=== PATIENT | male | born 1960 | race Caucasian/White ===

== ENCOUNTER 2024-09-14 07:15 | Emergency (ER) | payer MEDICARE, SELFPAY ==
[2024-09-14] VITALS (12 sets, daily range): BP systolic 120–184; BP diastolic 67–111; PULSE 79–87; RESP 15–28; TEMP 36.6–37.1; O2SAT 90–95
--- NOTE | 2024-09-14 07:30 | DI.RAD_ITS ---
Exam(s) XR CHEST 2V PA LATERAL EXAM: XR CHEST 2V PA LATERAL CLINICAL HISTORY: cough TECHNIQUE: 2D digital imaging was performed of the chest. Three images were obtained. AP and later al views were obtained. COMPARISON: No exams were available for comparison FINDINGS: MEDIASTINUM: Normal. HEART: Normal. PULMONARY VASCULATURE: Normal. LUNGS: There are bilateral pulmonary infiltrates present. Peribronchial thickening is seen bilateral ly. PLEURAL SPACE: No pleural effusion or pneumothorax. BONE:Within normal limits for the patient's age. OTHER FINDINGS:Normal. IMPRESSION: Multifocal pneumonia. DATA REPOSITORY: RADIATION DOSE DELIVERED:
--- NOTE | 2024-09-14 07:43 | ED.GENADUL_ITS ---
Discharge Plan Disposition Patient Disposition: Home Condition: Stable Discharge Details Clinical Impression: Community acquired pneumonia ED Provider: Shai Groves Home Meds and New Rx's Prescriptions: New levofloxacin 750 mg tablet 750 mg PO DAILY Qty: 6 0RF Continued hydrochlorothiazide 25 mg tablet 25 mg PO DAILY candesartan 32 mg tablet 32 mg PO DAILY Discharge Instructions Additional Instructions: Your x-ray showed you have a pneumonia. Take the antibiotic as prescribed. If you are not improving within a week follow-up with your primary care provider. If you feel significantly more ill or have severe shortness of breath return to the emergency department for reevaluation HPI General Date/Time Provider Initiated Documentation: 09/14/24 07:16 . Limitations to Documentation: no limitations . Information obtained by: patient . History of Present Illness 64 year old M presents to the emergency department with the chief complaint of cough, described as moderate, Patient started experiencing this day(s) (3) and it has been intermittent. No relieving factors improve symptom(s), No exacerbating factors reported . Patient notes shortness of breath; denies chest pain. Patient did receive the following treatments prior to arrival, none Related Data Home Medications ?Medication ?Instructions ?Recorded ?Confirmed candesartan 32 mg tablet 32 mg PO DAILY 09/14/24 09/14/24 hydrochlorothiazide 25 mg tablet 25 mg PO DAILY 09/14/24 09/14/24 levofloxacin 750 mg tablet 750 mg PO DAILY #6 tabs 09/14/24 Previous Rx's ?Medication ?Instructions ?Recorded levofloxacin 750 mg tablet 750 mg PO DAILY #6 tabs 09/14/24 Allergies Allergy/AdvReac Type Severity Reaction Status Date / Time acetaminophen (From Percocet) Allergy Severe Itching Verified 09/14/24 07:26 oxycodone (From Percocet) Allergy Severe Itching Verified 09/14/24 07:26 General Stated Complaint: GenMedical CHARLES: 3 Review of Systems All systems reviewed & are unremarkable except as noted in HPI and below Constitutional Constitutional: Reports chills, Denies fever(s) and Denies weakness Cardiovascular Cardiovascular: Denies chest pain and Reports dyspnea Respiratory Respiratory: Reports cough and Reports dyspnea Gastrointestinal Gastrointestinal: Denies abdominal pain, Denies nausea and Denies vomiting Integumentary/Breasts Skin/Breast: Denies rash Neurologic Neurologic: Denies weakness Exam Const General: no acute distress Orientation: alert HENMT Head: normal to inspection Ears: external ears normal General nose exam: external nose normal Mouth: moist mucous membranes Eyes General: appearance normal, both eyes and all related structures Neck Neck: normal visual inspection Resp Effort & Inspection: normal respiratory effort and able to speak in complete sentences Auscultation: rhonchi Cardio Jugular venous pressure: no JVD Rate: regular rate Heart Sounds: no murmurs GI Palpation: soft and nontender Skin General skin exam: no rashes or lesions noted Neuro General: patient alert and patient oriented x3 Extrem General: normal to inspection Psych Mental Status: mental status grossly normal Course Vital Signs Vital signs: Vital Signs Temperature 36.6 C 09/14/24 07:23 Pulse 87 09/14/24 07:23 Respiratory Rate 20 09/14/24 07:23 Blood Pressure 184/111 H 09/14/24 07:23 Pulse Oximetry 91 L 09/14/24 07:23 Temperature 36.6 C 09/14/24 07:26 Temperature Source Oral 09/14/24 07:26 Pulse 87 09/14/24 07:26 Respiratory Rate 20 09/14/24 07:26 Blood Pressure 184/111 H 09/14/24 07:26 Blood Pressure Position Sitting 09/14/24 07:26 Pulse Oximetry 91 L 09/14/24 07:26 Oxygen Delivery Method Room Air 09/14/24 07:26 Oxygen Flow Rate 0 09/14/24 07:26 Medical Decision Making 64-year-old male who states he has a history of high blood pressure and smokes pot daily comes in with several days of productive cough and chills. Denies any high fevers, chest pressure, diaphoresis. He is stable on arrival though his O2 sat on room air is noted to be 92% on my exam. He has no signs of respiratory distress. He has no JVD or leg swelling or calf tenderness. Soft nontender abdomen. He has apical wheezing bilaterally and also rhonchi at the bases bilaterally with intermittent cough during exam. I suspect respiratory infection, will check a CBC, CMP and procalcitonin and also chest x-ray along with a Fluvid. Will treat his symptoms with DuoNeb and Solu-Medrol and reassess. Labs show mild leukocytosis send x-ray shows multifocal pneumonia. Patient is stable and feels well. Discussed results with him and given reassuring workup I feel he is appropriate for outpatient management. Will start him on levofloxacin. He will follow-up with his PCP if improving and return precautions given Differential Diagnosis Differential Diagnosis: covid, flu, pneumonia Lab Data Lab results reviewed: Yes I reviewed the patient's lab results. Quality:SDOH Health Related Social Needs: No Data to Display PFSH All Active Problems (Updated 09/14/24 @ 09:48 by Shai Groves MD) Community acquired pneumonia (Acute) Social History Smoking risk assessment performed?: No
[2024-09-14 08:27] LABS: COVID-19 PCR Negative (Negative); Influenza A PCR Negative (Negative); Influenza B PCR Negative (Negative); RSV PCR Negative (Negative)
[2024-09-14 08:29] LABS: Source Nasopharynx
[2024-09-14 09:06] LABS: Abs Immature Grans 0.09 10^3/uL (0.0-0.06); Absolute Basophil Count 0.07 10^3/uL (0.0-0.2); Absolute Eosinophil Count 0.22 10^3/uL (0.0-0.7); Absolute Lymphocyte Count 1.42 10^3/uL (1.2-3.4); Absolute Monocyte Count 0.61 10^3/uL (0.1-0.8); Absolute Neutrophil Count 9.54 10^3/uL (1.2-6.7); BE (Venous) 3 mmol/L (-2-3); Basophils % 0.6 %; Eosinophils % 1.8 %; HCO3 (Venous) 26 mmol/L (23-28); HCT 41.5 % (40.0-50.0); HGB 13.5 g/dL (13.5-17.5); Immature Grans % 0.8 %; Lymphocytes % 11.9 %; MCH 26.6 pg (27.0-33.0); MCHC 32.5 % (32.0-36.0); MCV 82 fL (80-95); MPV 8.9 fL (8.0-11.0); Monocytes % 5.1 %; Neutrophils % 79.8 %; O2 Sat (Venous) 83 %; Platelet Count 416 10^3/uL (130-400); RBC 5.08 10^6/uL (4.36-5.78); RDW 14.8 % (11.8-14.1); RDW-SD 44.7 fL; TCO2 (Venous) 23 mmol/L (24-29); WBC 11.95 10^3/uL (4.4-10.8); pCO2 (Venous) 36 mmHg (41-51); pH (Venous) 7.47 (7.31-7.41); pO2 (Venous) 45 mmHg
[2024-09-14 09:33] LABS: ALT 16 U/L (16-63); AST 12 U/L (15-37); Albumin 2.6 g/dL (3.4-5.0); Alkaline Phosphatase 117 U/L (46-116); Anion Gap 9.9 mmol/L (3-11); BUN 15 mg/dL (7-18); Bilirubin, Total 0.4 mg/dL (0.2-1.0); CO2 27.1 mmol/L (21.0-32.0); CREATININE 1.1 mg/dL (0.70-1.30); Calcium 9.2 mg/dL (8.5-10.1); Chloride 98 mmol/L (98-107); Glucose 217 mg/dL (74-106); Magnesium 1.9 mg/dL; Potassium 3.7 mmol/L (3.5-5.1); Sodium 135 mmol/L (136-145); TSH (W/Ref FT4) 1.65 uIU/mL (0.36-3.74); Total Protein 9.2 g/dL (6.4-8.2)
[2024-09-14 09:35] LABS: Procalcitonin < 0.10 ng/mL
[2024-09-14] MEDS: Albuterol/Ipratropium 3 ML UPD VIAL UPD (10:05)
[2024-09-14] MEDS: levoFLOXacin 500 MG, levoFLOXacin 250 MG 750 MG PO (10:06)
[2024-09-14] MEDS: methylPREDNISolone SUCC 125 MG VIAL IVP (10:08)
== END 2024-09-14 10:20 | disposition home or self-care (01) ==
LOC: ER 11:10
PROVIDERS: Emergency Provider Emergency Medicine
DX: J18.9 Pneumonia, unspecified organism (principal)
CPT/HCPCS: 36415; 80053; 82805; 82962; 84145; 87637; 94640; 96374; 99284; 99285; 71046; 83735; 84443; 85025; J2919; J7620

== ENCOUNTER 2024-09-16 11:07 | Outpatient (CLI) | payer MEDICARE, SELFPAY ==
--- NOTE | 2024-09-16 09:45 | DI.RAD_ITS ---
Exam(s) XR CHEST 2V PA LATERAL EXAM: XR CHEST 2V PA LATERAL CLINICAL HISTORY: monitor pneumonia, ? worsening, increased SOB TECHNIQUE: 2D digital imaging was performed of the chest. Two images were obtained. PA and lateral views were obtained. COMPARISON: CR XR CHEST 2V PA LATERAL from 09/14/2024 FINDINGS: MEDIASTINUM: Normal. HEART: Normal. PULMONARY VASCULATURE: Normal. LUNGS: There are stable bilateral pulmonary infiltrates. No new infiltrates are seen. PLEURAL SPACE: No pleural effusion or pneumothorax. BONE:Within normal limits for the patient's age. OTHER FINDINGS:Normal. IMPRESSION: Stable bilateral pulmonary infiltrates. DATA REPOSITORY: RADIATION DOSE DELIVERED:
== END 2024-09-16 11:27 ==
LOC: DI 11:08
PROVIDERS: Visit Provider Physician Assistant
DX: J18.9 Pneumonia, unspecified organism (principal)
CPT/HCPCS: 71046

== ENCOUNTER 2024-09-25 22:19 | Inpatient (IN) | payer MEDICARE, SELFPAY ==
[2024-09-25] VITALS (23 sets, daily range): BP systolic 124–181; BP diastolic 56–106; PULSE 62–180; RESP 16–41; TEMP 38.7; O2SAT 91–95
--- NOTE | 2024-09-25 22:15 | RT.EKG_ITS ---
APPROVED REPORT Exam: Resting ECG Reason for Exam: SOB Patient Location: E HR:166 bpm ECG Measurements Heart Rate 166 AXIS CA 85 P 0 QRSd 99 QRS 68 QT 298 T -51 QTc 494 Conclusion Supraventricular tachycardia...V-rate>(220-age), QRSd<120 Repolarization abnormality, prob rate related...ST dep, T neg, tachycardia narrow complex tachycardia rate 160's
[2024-09-25 22:42] LABS: Absolute Basophil Count 0.07 10^3/uL (0.0-0.2); Absolute Eosinophil Count 0.07 10^3/uL (0.0-0.7); Absolute Monocyte Count 0.89 10^3/uL (0.1-0.8); Basophils % 0.3 %; Eosinophils % 0.3 %; HCT 44.6 % (40.0-50.0); HGB 14.4 g/dL (13.5-17.5); Immature Grans % 0.9 %; Lymphocytes % 5.5 %; MCH 26.3 pg (27.0-33.0); MCHC 32.3 % (32.0-36.0); MCV 81 fL (80-95); MPV 8.8 fL (8.0-11.0); Platelet Count 317 10^3/uL (130-400); RBC 5.48 10^6/uL (4.36-5.78); RDW 15.5 % (11.8-14.1); RDW-SD 46.1 fL; WBC 22.37 10^3/uL (4.4-10.8)
[2024-09-25] MEDS: Adenosine 6 MG/2 ML VIAL IVP (22:42)
[2024-09-25 22:43] LABS: Absolute Lymphocyte Count 1.23 10^3/uL (1.2-3.4); Absolute Neutrophil Count 19.91 10^3/uL (1.2-6.7); Lactate 2.4 mmol/L (<or=2.0)
[2024-09-25] MEDS: Adenosine 6 MG/2 ML VIAL 12 MG IVP ×2 (22:44→23:15)
--- NOTE | 2024-09-25 22:45 | RT.EKG_ITS ---
APPROVED REPORT Exam: Resting ECG Reason for Exam: tachy Patient Location: E HR:137 bpm ECG Measurements Heart Rate 137 AXIS WA [id number] P [id number] QRSd 99 QRS 67 QT 302 T -69 QTc 457 Conclusion Atrial fibrillation...V-rate 106-169, irreg A-activity Nonspecific repol abnormality, diffuse leads...ST dep, T flat/neg, ant/lat/inf afib with RVR rate 130's no ST segment or T wave abnormalitites to suggest occlusive ID
[2024-09-25] MEDS: dilTIAZem 125 MG in Normal Saline 100 ML 10 MG IV (22:56)
[2024-09-25] MEDS: dilTIAZem 25 MG/5 ML VIAL 10 MG IVP (23:00)
--- NOTE | 2024-09-25 23:02 | ED.GENADUL_ITS ---
Discharge Plan Disposition Patient Disposition: Admit to [facility] Condition: Critical Discharge Details Chief Complaint: SOB/SuddenOnset Clinical Impression: Atrial fibrillation with rapid ventricular response, Sepsis, Respiratory failure, Hallucination Admit Date/Time: 09/26/24 01:35 Admit Provider: Yakov De La Fuente Attending Provider: Yakov De La Fuente Primary Care Provider: Unknown,Unknown ED Provider: Rosa Montoya Home Meds and New Rx's Prescriptions: No Action albuterol sulfate 90 mcg/actuation HFA aerosol inhaler 2 puff inhalation Q6H PRN (Reason: shortness of breath or wheezing) Qty: 8.5 0RF hydrochlorothiazide 25 mg tablet 25 mg PO DAILY candesartan 32 mg tablet 32 mg PO DAILY HPI General Mode of arrival: ambulatory . Date/Time Provider Initiated Documentation: 09/25/24 22:20 . Limitations to Documentation: no limitations . Information obtained by: patient . HPI Narrative: 64yo M with hx of HTN, recent pneumonia, presenting for shortness of breath and palpitations, started at 1300 today while cleaning toilet with bleach. Constant since then. No chest pain. Diagnoses with pneumonia about a week and a half ago, has been on antibiotics and steroids since then. Unsure if he has had fevers at home. No LE edema. No orthopnea. No fevers or neck pain. reports he has been seeing his brothers ([facility] note from about a week ago, after starting prednisone, also mentions hallucinations); no prior history of this. Otherwise in his usual state of health. Related Data Home Medications ?Medication ?Instructions ?Recorded ?Confirmed candesartan 32 mg tablet 32 mg PO DAILY 09/14/24 09/25/24 hydrochlorothiazide 25 mg tablet 25 mg PO DAILY 09/14/24 09/25/24 albuterol sulfate 90 mcg/actuation 2 puff inhalation Q6H PRN 09/16/24 09/25/24 aerosol inhaler shortness of breath or wheezing #8.5 grams Previous Rx's ?Medication ?Instructions ?Recorded albuterol sulfate 90 mcg/actuation 2 puff inhalation Q6H PRN 09/16/24 aerosol inhaler shortness of breath or wheezing #8.5 grams Allergies Allergy/AdvReac Type Severity Reaction Status Date / Time acetaminophen (From Percocet) Allergy Severe Itching Verified 09/25/24 22:30 oxycodone (From Percocet) Allergy Severe Itching Verified 09/25/24 22:30 General Stated Complaint: SOB/SuddenOnset CHARLES: 3 Review of Systems Narrative: see HPI Exam Narrative Exam Narrative: General: Alert, obese, diaphoretic Head: Normocephalic, atraumatic Neck: Trachea midline, ?Neck supple. No neck stiffness. ENT: ?MMM.? Cardiac: ?Tachycardiac, no murmurs appreciated Resp: CTAB. Abd: ?Soft, non-distended, nontender : ?No suprapubic tenderness. Extremities: ?No deformities.? No peripheral edema. Neuro: GCS 15.? PERRL.? EOMI.? Fluent speech, no dysarthria. Motor- 5/5 strength symmetric bilateral upper and lower extremities Sensation- ?Intact to light touch and symmetric multiple dermatomes including upper and lower extremities Coordination- No dysmetria on finger to nose Reflexes- 2/4 achilles, no clonus CRANIAL NERVES: II: Pupils equal and reactive, III, IV, : EOM intact, no gaze preference or deviation, no nystagmus. V: normal sensation in V1, V2, and V3 segments bilaterally VII: no asymmetry, no nasolabial fold flattening VIII: normal hearing to speech IX, X: normal palatal elevation, no uvular deviation XI: 5/5 head turn and 5/5 shoulder shrug bilaterally XII: midline tongue protrusion Course Vital Signs Vital signs: Vital Signs Temperature 38.7 C H 09/25/24 22:22 Pulse 112 H 09/25/24 22:22 Respiratory Rate 24 09/25/24 22:22 Blood Pressure 174/105 H 09/25/24 22:22 Pulse Oximetry 93 09/25/24 22:22 Temperature 38.7 C H 09/25/24 22:22 Temperature Source Temporal Artery Scan 09/25/24 22:22 Pulse 123 H 09/25/24 22:54 Pulse 149 H 09/25/24 22:54 Respiratory Rate 28 H 09/25/24 22:54 Blood Pressure 157/56 H 09/25/24 22:54 Blood Pressure Mean 91 09/25/24 22:54 Pulse Oximetry 91 L 09/25/24 22:54 Oxygen Delivery Method Room Air 09/25/24 22:22 Oxygen Flow Rate 0 09/25/24 22:22 Pain Level 7 09/25/24 22:22 Lab/Test Results Lab/Test Results: 09/25/24 22:36 Blood Blood Culture - Pending 09/25/24 22:30 Blood Blood Culture - Pending Laboratory Tests Range/Units 09/25/24 22:28 WBC (4.4-10.8) 10^3/uL 22.37 H RBC (4.36-5.78) 10^6/uL 5.48 Hgb (13.5-17.5) g/dL 14.4 Hct (40.0-50.0) % 44.6 MCV (80-95) fL 81 MCH (27.0-33.0) pg 26.3 L MCHC (32.0-36.0) % 32.3 RDW (11.8-14.1) % 15.5 H Plt Count (130-400) 10^3/uL 317 MPV (8.0-11.0) fL 8.8 Immature Gran % % 0.9 Neutrophils % % 89.0 Lymphocytes % % 5.5 Monocytes % % 4.0 Eosinophils % % 0.3 Basophils % % 0.3 Nucleated RBC % (0.0-0.3) % 0.0 Absolute Neutrophils (1.2-6.7) 10^3/uL 19.91 H Absolute Lymphocytes (1.2-3.4) 10^3/uL 1.23 Absolute Monocytes (0.1-0.8) 10^3/uL 0.89 H Absolute Eosinophils (0.0-0.7) 10^3/uL 0.07 Absolute Basophils (0.0-0.2) 10^3/uL 0.07 VBG Lactate (<or=2.0) mmol/L 2.4 H* Medical Decision Making 64yo M with hx HTN presenting with shortness of breath and palpitations, onset suddenly around 1300 today while cleaning toilet with bleach. Tachycardia on arrival to 180's, hypertensive, febrile to 38.7. Denies chest pain. Initial resus: EKG on arrival narrow complex tachycardia rate 160's, no ST segment or T wave abnormalities to suggest occlusive TN. Given adenosine 6mg with no effect, 12mg with minimal effect, subsequent 12mg with transient (seconds long) response revealing underlying afib on strip. Given 20mg IV diltazem with improvement in HR to 130's-140's. Repeat EKG confirms afib rate 130's. Started on dilt gtt and given additional 10mg IV bolus. Labs reviewed as below, CBC with leukocytosis to 22, CMP with mild hypokalemia at 3.4 (PO replacement ordered), Mg 1.4, BNP not suggestive of heart failure, troponin normal, TSH normal, lactate slightly elevated at 2.4. CXR independently reviewed, agree with radiology read with interstitial infiltrate. Patient is requiring 2L NC to maintain O2 > 92%, given hx of pneumonia and fever favor ongoing pneumonia as cause. Symptoms and exam not suggestive of acute inhalation injury. He does report his shortness of breath is much improved now that his HR has decreased. On reassessment HR 140's-150's, dilt gtt @15. Will give additional 15mg bolus, may need to start beta blockade if remains poorly controlled. Started on broad spectrum abx (zosyn/zyvox) for presumed sepsis, BP now improved with SBP 130's and clinically not in heart failure; will start with 1L IVFB and reassess. No JONAS, neck pain, or neck stiffness to suggest meningitis or encephalitits. With new hallucinations must consider intracranial mass (though prednisone induced or delirium seems more likely) Normal neurologic exam. Head CT ordered and independently reviewed; no intracranial bleed or mass on my view, agree with with radiology read below. No ICU capacity at [facility], will attempt to transfer. Discussed with Dr. Dinh at [facility]; advised adding 25mg PO metoprolol [id number], titrate drip when possible. May benefit from THIERRY cardioversion. [facility] anticipates bed available Saturday, though called back shortly thereafter and stated later today possible. Discussed with [facility] hospitalist Dr. De La Fuente; pt accepted to medicine service for further workup and management. Awaiting admission orders. Imaging Data Radiologic Study: Imaging: X-Ray and CT Scan Radiologist's impression: XR: IMPRESSION: Interstitial disease suggesting bronchitis or atypical infection, without definite airspace disease CT :IMPRESSION: No acute intracranial findings Quality:SDOH Health Related Social Needs: No Data to Display Critical Care Time Critical Care Time Total Critical Care Time: 34 Attestation: Due to a high probability of clinically significant, life threatening deterioration, the patient required my highest level of preparedness to intervene emergently and I personally spent this critical care time directly and personally managing the patient. This critical care time included obtaining a history; examining the patient; pulse oximetry; ordering and review of studies; arranging urgent treatment with development of a management plan; evaluation of patient's response to treatment; frequent reassessment; and, discussions with other providers. This critical care time was performed to assess and manage the high probability of imminent, life-threatening deterioration that could result in multi-organ failure. It was exclusive of separately billable procedures and treating other patients? PFSH All Active Problems (Updated 09/26/24 @ 01:56 by Rosa Montoya MD) Hallucination (Acute) Respiratory failure (Acute) Sepsis (Acute) Atrial fibrillation with rapid ventricular response (Acute) HTN (hypertension) (Chronic) Acute respiratory failure with hypoxia (Acute) Persistent atrial fibrillation with RVR (Acute) Lactic acid acidosis (Acute) Severe sepsis (Acute) Community acquired pneumonia (Acute) Social History Smoking/Tobacco Use Status: Never Smoking risk assessment performed?: Yes Alcohol Intake: never Substance use type: marijuana Do you feel safe at home: Yes Do you feel safe in your relationship?: Yes
[2024-09-25 23:13] LABS: ALT 19 U/L (16-63); AST 14 U/L (15-37); Albumin 2.7 g/dL (3.4-5.0); Alkaline Phosphatase 117 U/L (46-116); Anion Gap 11.9 mmol/L (3-11); BUN 15 mg/dL (7-18); Bilirubin, Total 0.5 mg/dL (0.2-1.0); CO2 27.1 mmol/L (21.0-32.0); CREATININE 1.1 mg/dL (0.70-1.30); Calcium 9.8 mg/dL (8.5-10.1); Chloride 98 mmol/L (98-107); Glucose 196 mg/dL (74-106); NT-proBNP 161 pg/mL (<300); Potassium 3.4 mmol/L (3.5-5.1); Sodium 137 mmol/L (136-145); TSH (W/Ref FT4) 1.62 uIU/mL (0.36-3.74); Total Protein 8.6 g/dL (6.4-8.2); Troponin I 16 ng/L (<or=76)
--- NOTE | 2024-09-25 23:14 | DI.RAD_ITS ---
Exam(s) XR PORTABLE CHEST AP EXAM: XR PORTABLE CHEST AP CLINICAL HISTORY: short of breath TECHNIQUE: 2D digital imaging was performed. COMPARISON: CR XR CHEST 2V PA LATERAL from 09/14/2024 CR XR CHEST 2V PA LATERAL from 09/16/2024 FINDINGS: Exam is limited by multiple overlying monitoring leads. LUNGS: No focal area of consolidation. Interstitial changes which may be chronic versus atypical inf ection or bronchitis. No pleural abnormality seen. HEART: Normal size. AORTA: Normal diameter. BONES: Unremarkable for age. Soft tissues: Unremarkable. IMPRESSION: Increased interstitial changes could be chronic versus atypical infection or bronchitis. DATA REPOSITORY: RADIATION DOSE DELIVERED:
[2024-09-25] MEDS: dilTIAZem 25 MG/5 ML VIAL 20 MG IVP (23:15)
[2024-09-25] MEDS: LINEZOLID 600 MG/300 ML BAG 300 MG IVPB (23:26)
[2024-09-25] MEDS: dilTIAZem 25 MG/5 ML VIAL 15 MG IVP (23:33)
[2024-09-25] MEDS: Acetaminophen 500 MG TAB 1000 MG PO (23:42)
[2024-09-25] MEDS: Potassium Chloride 20 MEQ TABCR PO (23:46)
[2024-09-25] MEDS: Normal Saline 1,000 ML 1000 ML IV (23:55)
[2024-09-25 23:58] LABS: Magnesium 1.4 mg/dL
[2024-09-26] VITALS (99 sets, daily range): BP systolic 121–214; BP diastolic 57–152; PULSE 65–134; RESP 11–34; TEMP 35.7–38.2; O2SAT 90–99
[2024-09-26 00:07] LABS: Troponin I 19 ng/L (<or=76)
--- NOTE | 2024-09-26 00:10 | DI.VRAD_ITS ---
PROCEDURE INFORMATION: Exam: XR Chest Exam date and time: 09/25/2024 23:12 Age: 64 years old Clinical indication: Shortness of breath; Short of breath TECHNIQUE: Imaging protocol: Radiologic exam of the chest. Views: 1 view. COMPARISON: CR XR CHEST 2V PA LATERAL 09/16/2024 10:05 FINDINGS: Lungs: Patchy mild multifocal interstitial prominence is less pronounced without definite airspace disease. Pleural spaces: No pleural effusion. No pneumothorax. Heart/Mediastinum: The cardiac silhouette is upper limits of normal. Bones/joints: No acute fracture. IMPRESSION: Interstitial disease suggesting bronchitis or atypical infection, without definite airspace disease. Dictated and Authenticated by: Jessica Lee MD. Orderin Lindsay Lee MD
[2024-09-26 00:18] LABS: COVID-19 PCR Negative (Negative); Influenza A PCR Negative (Negative); Influenza B PCR Negative (Negative); RSV PCR Negative (Negative)
[2024-09-26 00:24] LABS: Source Nasopharynx
--- NOTE | 2024-09-26 00:34 | DI.CT_ITS ---
Exam(s) CT HEAD WO EXAM: CT HEAD WO CLINICAL HISTORY: hallucinations. TECHNIQUE: Imaging Protocol: Axial computed tomography images with coronal and sagittal reformatted images were created and reviewed COMPARISON: No exams were available for comparison FINDINGS: Ventricles and Extra axial spaces: Normal in size and morphology for the patient's age. Hemorrhage: None. Cerebral parenchyma: No evidence of acute infarct or mass. Midline shift: None. Brainstem/Cerebellum: Normal. Calvarium: Normal. Visualized Paranasal sinuses:Clear. Mastoids: Clear. Soft Tissues: Unremarkable. ORBITS: Unremarkable. PITUITARY: Not enlarged. Partially empty sella IMPRESSION: No acute intracranial process. RADIATION DOSE DELIVERED: Total DLP DATA REPOSITORY: All CT scans at this facility are submitted to the National Radiology Data Registry (NRDR) Dose Index Registry (DIR) with the [employer] ([employer]). RADIATION OPTIMIZATION: All CT scans at this facility use at least one of these dose optimization te chniques: automated exposure control; mA and/or kV adjustment per patient size (includes targeted exa ms where dose is matched to clinical indication); or iterative reconstruction.
--- NOTE | 2024-09-26 00:34 | NUR.NOTE ---
[address] Nursing Note:
--- NOTE | 2024-09-26 00:35 | NUR.NOTE ---
PT returned from CT Nursing Note:
--- NOTE | 2024-09-26 00:42 | DI.VRAD_ITS ---
PROCEDURE INFORMATION: Exam: CT Head Without Contrast Exam date and time: 09/26/2024 00:23 Age: 64 years old Clinical indication: Other: Hallucinations TECHNIQUE: Imaging protocol: Computed tomography of the head without contrast. Radiation optimization: All CT scans at this facility use at least one of these dose optimization techniques: automated exposure control; mA and/or kV adjustment per patient size (includes targeted exams where dose is matched to clinical indication); or iterative reconstruction. COMPARISON: No relevant prior studies available. FINDINGS: Brain: Mild cerebral atrophy. No edema or hemorrhage. Cerebral ventricles: No ventriculomegaly. Pituitary gland and sella: CSF density in the sella turcica, likely so-called benign empty sella. Paranasal sinuses: No acute sinusitis. Mastoid air cells: No mastoid effusion. Bones: No acute fracture. Soft tissues: No suspicious lesions. IMPRESSION: No acute intracranial findings. Dictated and Authenticated by: Jessica Lee MD. Orderin Lindsay Lee MD
[2024-09-26] MEDS: Metoprolol 25 MG TAB PO ×5 (00:43→23:31)
[2024-09-26] MEDS: Magnesium Gluconate 500 MG TAB 1000 MG PO (01:06)
--- NOTE | 2024-09-26 01:36 | HPE_ITS ---
Date of service: 09/26/24 Time of Service: 01:36 Assessment and Plan Assessment and plan (1) Severe sepsis: Status: Acute Assessment and plan: -patient meets criteria for severe sepsis with HR >120bpm, WBC 22, temp 101.7oF, CAP as source of infection and initial lactic acid of 2.4 -patient started on zosyn and linezolid, will continue -f/u blood culture results -f/u repeat lactic acid -f/u AM CBC- (2) Community acquired pneumonia: Status: Acute Assessment and plan: -likely source of infection as noted above (3) Lactic acid acidosis: Status: Acute Assessment and plan: -secondary to severe sepsis as noted above -f/u repeat LA (4) Acute respiratory failure with hypoxia: Status: Acute Assessment and plan: -secondary to CAP as noted above -currently requiring 2L NC -wean as tolerated with goal >92% (5) Persistent atrial fibrillation with RVR: Status: Acute Assessment and plan: -likely exacerbated by severe sepsis as noted above -Had been on diltiazem drip some drip while holding in the emergency department which has since been discontinued -Continue p.o. metoprolol -Continue starting Eliquis as patient is not on anticoagulation as been in A-fib for unknown amount of time (6) HTN (hypertension): Status: Chronic Assessment and plan: -hold home candesartan and HCTZ at this time History of Present Illness History of Present Illness Chief Complaint: shortness of breath Narrative: 64-year-old gentleman with past medical history of hypertension and recent diagnosis of pneumonia presented emergency department with shortness of breath palpitations. Patient stated that he was cleaning a toilet with bleach at around 1 PM in the afternoon and since that time he has had pretty consistent feeling of shortness of breath and palpitations but denies any chest pain. He states he was diagnosed with pneumonia about a week and a half ago and had been on antibiotics and steroids since that time. He denies any fevers, headache, lightheadedness, dizziness, chest pain, nausea vomiting or diarrhea. In the emergency department the patient was noted to being severely tachycardic requiring adenosine that slowed his heart rate and showed A-fib with RVR. He was given 2 doses of IV diltiazem without improvement of his heart rate was placed on a diltiazem drip. He was also noted to have elevated white blood cell count of 22.3, and oxygen requirement necessitating 2 L nasal cannula, and a lactic acid of 2.4. He was started on linezolid and Zosyn. At which time emergency room physician paged hospitalist for admission for patient with A-fib RVR likely secondary to failed outpatient therapy of a community-acquired pneumonia resulting in severe sepsis. Review of Systems All systems reviewed & are unremarkable except as noted in HPI and below PFSH All Active Problems (Updated 09/26/24 @ 01:56 by Rosa Montoya MD) Hallucination (Acute) Respiratory failure (Acute) Sepsis (Acute) Atrial fibrillation with rapid ventricular response (Acute) HTN (hypertension) (Chronic) Acute respiratory failure with hypoxia (Acute) Persistent atrial fibrillation with RVR (Acute) Lactic acid acidosis (Acute) Severe sepsis (Acute) Community acquired pneumonia (Acute) Social History Smoking/Tobacco Use Status: Never Smoking risk assessment performed?: Yes Alcohol Intake: never Substance use type: marijuana Do you feel safe at home: Yes Do you feel safe in your relationship?: Yes Meds Allergies and Home Medications Allergies Allergy/AdvReac Type Severity Reaction Status Date / Time acetaminophen (From Percocet) Allergy Severe Itching Verified 09/25/24 22:30 oxycodone (From Percocet) Allergy Severe Itching Verified 09/25/24 22:30 Home Medications ?Medication ?Instructions ?Recorded ?Confirmed ?Type candesartan 32 mg tablet 32 mg PO DAILY 09/14/24 09/25/24 History hydrochlorothiazide 25 mg tablet 25 mg PO DAILY 09/14/24 09/25/24 History albuterol sulfate 90 mcg/actuation 2 puff inhalation Q6H PRN 09/16/24 09/25/24 Rx aerosol inhaler shortness of breath or wheezing #8.5 grams Exam Narrative Exam Narrative: Well-appearing morbidly obese gentleman sitting up in bed in no acute distress, ANO x 4, heart irregularly irregular with rates in the low 100s, lungs clear to auscultation bilaterally, abdomen soft, nontender, nondistended Results Labs 09/25/24 22:28 09/25/24 22:28 Labs: Laboratory Results - last 24 hr 09/25/24 09/25/24 09/26/24 22:28 23:37 01:33 WBC 22.37 H RBC 5.48 Hgb 14.4 Hct 44.6 MCV 81 MCH 26.3 L MCHC 32.3 RDW 15.5 H Plt Count 317 MPV 8.8 Immature Gran % 0.9 Neutrophils % 89.0 Lymphocytes % 5.5 Monocytes % 4.0 Eosinophils % 0.3 Basophils % 0.3 Nucleated RBC % 0.0 Absolute Neutrophils 19.91 H Absolute Lymphocytes 1.23 Absolute Monocytes 0.89 H Absolute Eosinophils 0.07 Absolute Basophils 0.07 VBG Lactate 2.4 H* Sodium 137 Potassium 3.4 L Chloride 98 Carbon Dioxide 27.1 Anion Gap 11.9 H BUN 15 Creatinine 1.1 Est GFR (CKD-EPI 2020) 75.90 Glucose 196 H Calcium 9.8 Magnesium 1.4 Total Bilirubin 0.5 AST 14 L ALT 19 Alkaline Phosphatase 117 H Troponin I 16 19 Cancelled NT-Pro-B Natriuret Pep 161 Total Protein 8.6 H Albumin 2.7 L TSH 1.62 COVID-19 Source Nasopharynx SARS-CoV-2 (PCR) Negative Influenza Type A (PCR) Negative Influenza Type B (PCR) Negative RSV (PCR) Negative Last Vital Signs Temp 98.7 F 09/26/24 01:02 Pulse 66 09/26/24 01:20 Resp 24 09/26/24 01:20 BP 145/73 H 09/26/24 01:16 Pulse Ox 95 09/26/24 01:20 Time Spent Time spent with Patient: >75 minutes Time was spent: preparing to see the patient(eg.review tests), obtaining and/or reviewing separately otained hiistory, ordering medications,tests, procedures, referring, communicating with other health behavioral health care manager, indepentently interpreting results, counseling the patient and care coordination
--- NOTE | 2024-09-26 02:19 | NUR.NOTE ---
PTs family updated on plan of care Nursing Note:
--- NOTE | 2024-09-26 08:24 | DI.CT_ITS ---
Exam(s) CT CHEST WO EXAM: CT CHEST WO CLINICAL HISTORY: atypical pneumonia TECHNIQUE: Imaging Protocol: Axial computed tomography images with coronal and sagittal reformatted images were created and reviewed. Computer aided detection (CAD) was utilized. CONTRAST MATERIAL: Noncontrast COMPARISON: CR,XR XR PORTABLE CHEST AP from 09/25/2024 FINDINGS: Pulmonary parenchyma: Bilateral [id number] ground-glass opacities, greater peripherally may rep resent atypical pneumonia versus inflammatory pneumonitis. No consolidation. No dominant measurable mass. Tracheobronchial tree: No bronchiectasis or mucous plugging. Mediastinum and Marcela: Small mediastinal lymph nodes, reactive. No fluid collection. Pleura: No effusion. No pneumothorax. Heart: The heart is mildly dilated. Mild coronary artery calcifications are seen. Aorta: Ascending aorta measures 4.5 cm. Minimal atherosclerotic changes. Pulmonary arteries: No gross evidence of emboli. Upper abdomen: No acute findings. Enlarged liver. Pancreas somewhat atrophic. Rounded density at the upper pole of the left kidney may represent cysts however appears of slightly higher density t [place]arris [place]. Bones: Degenerative changes in the spine. Soft tissues: Significant bilateral gynecomastia. IMPRESSION: Infectious versus inflammatory bilateral pneumonitis. Indeterminate lesion of the upper pole of the left kidney may represent a slightly hyperdense cyst. Consider further evaluation with ultrasound. Additional imaging recommended. RADIATION DOSE DELIVERED: Total DLP DATA REPOSITORY: All CT scans at this facility are submitted to the National Radiology Data Registry (NRDR) Dose Index Registry (DIR) with the [employer] (ACR). RADIATION OPTIMIZATION: All CT scans at this facility use at least one of these dose optimization te chniques: automated exposure control; mA and/or kV adjustment per patient size (includes targeted exa ms where dose is matched to clinical indication); or iterative reconstruction.
--- NOTE | 2024-09-26 08:55 | INITIAL_ITS ---
Date of service: 09/26/24 Time of Service: 08:55 Care Management Initial Assmt Initial Assessment Reason for Hospitalization: SOB, Pneumonia, AMS Functional Status/Living Situation Patient Presentation: William was sitting up in bed when CM met with him; his , Rosanne was by his side. He stated that he is doing ok today; he was held in the ED overnight, and he and his expressed their gratitude for the care he received while in the ED. William stated that he and his live in [place] with Rosanne's son, daughter in law and their new baby. Together, he and Rosanne have six children. They spoke with saulo about having their new grandchild live with them, stating it is a blessing for them. 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 He reported that his PCP is Dr. Charles Yarbrough, at [facility], and that he has a very good relationship with him, which is why he has not changed to a more local PCP, after moving to this area 11 years ago. He stated that he has never been as sick as he feels currently, and is leaning on the guidance of the medical team at this time. He did not identify any community needs, and stated he is independent at baseline. CM will continue to follow. Town of Residence: [place] Resides with: Spouse (, Rosanne) Significant Other/Family: Local Natural Supports: , Rosanne Six children between them, one of which is estranged. 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 Medications Medication Management: No Issues/Barriers identified Advance Directives Advance Directives: Do you have an Advance Directive: Y 09/26/24 02:06 AD On File at [facility]: Y 09/26/24 02:06 Date Asked 09/26/24 09/26/24 02:06 AD Date Reviewed 09/26/24 09/26/24 02:06 COLST On File at [facility] COLST Date Scanned Code Status Resuscitation Status Full Code Insurance Coverage/Financial Issues Insurance: [facility] Care Team Visit Care Team Role Provider Type Jose Messina MD MD [facility] STAFF PHYSICIAN Unknown Unknown Primary Care Provider STAFF PHYSICIAN Other Providers Rosa Montoya MD Emergency Provider [facility] STAFF PHYSICIAN Yakov De La Fuente MD Admit Provider [facility] STAFF PHYSICIAN Attending Provider Discharge Potential Discharge Needs: PCP F/U Appt (Dr. Charles Yarbrough) Anticipated Barriers to Discharge: None Identified Patient/Family Education Needs: Review discharge instructions, discuss Ask Me Three Transportation: Private vehicle Plan: Anticipate William will return home once medically cleared. His will drive him home via private vehicle. He will follow up with his PCP and discharge plan of care. CM will continue to follow. Social Determinants of Health Screening Will the Patient Participate in the Screening?: Declined to provide PFSH All Active Problems (Updated 09/26/24 @ 01:56 by Rosa Montoya MD) Hallucination (Acute) Respiratory failure (Acute) Sepsis (Acute) Atrial fibrillation with rapid ventricular response (Acute) HTN (hypertension) (Chronic) Acute respiratory failure with hypoxia (Acute) Persistent atrial fibrillation with RVR (Acute) Lactic acid acidosis (Acute) Severe sepsis (Acute) Community acquired pneumonia (Acute) Social History Smoking/Tobacco Use Status: Never Smoking risk assessment performed?: Yes Alcohol Intake: never Substance use type: marijuana Housing: house Do you feel safe at home: Yes Do you feel safe in your relationship?: Yes
--- NOTE | 2024-09-26 08:56 | DI.VRAD_ITS ---
PROCEDURE INFORMATION: Exam: CT Chest Without Contrast; Diagnostic Exam date and time: 09/26/2024 8:15 AM Age: 64 years old Clinical indication: Condition or disease; Other: Pneumonia TECHNIQUE: Imaging protocol: Diagnostic computed tomography of the chest without contrast. 3D rendering (Not supervised by radiologist): MIP and/or 3D reconstructed images were created by the technologist. Radiation optimization: All CT scans at this facility use at least one of these dose optimization techniques: automated exposure control; mA and/or kV adjustment per patient size (includes targeted exams where dose is matched to clinical indication); or iterative reconstruction. COMPARISON: No relevant prior studies are available for comparison. FINDINGS: Limitations: No intravenous contrast was administered, limiting evaluation for some pathologies. Lungs: Multifocal ground-glass and reticulonodular opacities in both lungs. Pleural spaces: No pleural effusion. Heart: No pericardial effusion. Coronary arteries: Coronary artery calcifications. Lymph nodes: Nonspecific mediastinal and mesenteric lymph nodes. Vasculature: Atherosclerotic changes in the aorta and its branches. Liver: Hepatomegaly. Adrenal glands: Nodular adrenal thickening bilaterally. Kidneys: Exophytic left renal mass could represent a cyst but appears somewhat complex and solid lesion cannot be excluded. Consider follow-up. Bones/joints: No acute pertinent abnormality appreciated. Soft tissues: Gynecomastia. IMPRESSION: 1. Bilateral pulmonary parenchymal opacities most consistent with pneumonia. Follow-up as clinically warranted. 2. Additional findings as above. Dictated and Authenticated by: Cristiana Tinajero MD. Orderin Siddharth Garcia MD
--- NOTE | 2024-09-26 09:50 | W.PC.ACHO ---
Registration Status: Primary Language: Preferred Language: ED Information & Data Chief Complaint SOB/SuddenOnset 09/25/24 23:05 Triage Note PT states that he became SOB 09/25/24 22:22 after cleaning the toilet with a bleach sleeping room cleaner. PT has a recent HX of pneumonia . PT denies CP Most Recent Vital Signs Temperature 37.1 C 09/26/24 01:02 Temperature Source Temporal Artery Scan 09/25/24 22:22 Pulse 88 09/26/24 08:50 Pulse 100 H 09/26/24 08:50 Respiratory Rate 18 09/26/24 08:50 Blood Pressure 171/106 H 09/26/24 08:02 Blood Pressure Mean 119 09/26/24 08:02 Pulse Oximetry 96 09/26/24 08:50 Oxygen Delivery Method Room Air 09/25/24 22:22 Oxygen Flow Rate 0 09/25/24 22:22 Pain Level 5 09/26/24 09:40 Allergies acetaminophen (From Percocet) Allergy (Severe, Verified 09/25/24 22:30) Itching oxycodone (From Percocet) Allergy (Severe, Verified 09/25/24 22:30) Itching Active Medications Generic Name Dose Route Start Last Admin Trade Name Freq PRN Reason Stop Dose Admin Diltiazem HCl 125 mg/ Sodium 125 mls @ 0 mls/hr 09/25/24 23:15 09/26/24 04:28 Chloride IV 0 mls/hr INFUSION JAMAL 0 mls/hr Titration Protocol Per Protocol Metoprolol Tartrate 25 mg 09/26/24 06:00 09/26/24 06:58 Metoprolol 25 Mg Tab PO 25 mg Q6H JAMAL Administration IV IV Catheter Type [Left Peripheral IV Antecubital] IV Catheter Type [Right Saline Lock Antecubital] IV Catheter Gauge [Left 18 Antecubital] IV Catheter Gauge [Right 18 Antecubital] Diet Orders Category Date Time Status Heart Healthy Eating [DIET] Nutrition 09/26/24 Breakfast Active Diagnostics 09/26/24 09/26/24 09/25/24 Range/Units 09:44 01:33 23:37 WBC (4.4-10.8) 10^3/uL RBC (4.36-5.78) 10^6/uL Hgb (13.5-17.5) g/dL Hct (40.0-50.0) % MCV (80-95) fL MCH (27.0-33.0) pg MCHC (32.0-36.0) % RDW (11.8-14.1) % Plt Count (130-400) 10^3/uL MPV (8.0-11.0) fL Immature Gran % % Neutrophils % % Lymphocytes % % Monocytes % % Eosinophils % % Basophils % % Nucleated RBC % (0.0-0.3) % Absolute Neutrophils (1.2-6.7) 10^3/uL Absolute Lymphocytes (1.2-3.4) 10^3/uL Absolute Monocytes (0.1-0.8) 10^3/uL Absolute Eosinophils (0.0-0.7) 10^3/uL Absolute Basophils (0.0-0.2) 10^3/uL VBG Lactate Pending (<or=2.0) mmol/L Sodium (136-145) mmol/L Potassium (3.5-5.1) mmol/L Chloride (98-107) mmol/L Carbon Dioxide (21.0-32.0) mmol/L Anion Gap (3-11) mmol/L BUN (7-18) mg/dL Creatinine (0.70-1.30) mg/dL Est GFR (CKD-EPI 2020) (mL/min/1.73m2) Glucose (74-106) mg/dL Calcium (8.5-10.1) mg/dL Magnesium 1.4 mg/dL Total Bilirubin (0.2-1.0) mg/dL AST (15-37) U/L ALT (16-63) U/L Alkaline Phosphatase (46-116) U/L Troponin I Cancelled 19 (<or=76) ng/L NT-Pro-B Natriuret Pep (<300) pg/mL Total Protein (6.4-8.2) g/dL Albumin (3.4-5.0) g/dL TSH (0.36-3.74) uIU/mL COVID-19 Source Nasopharynx SARS-CoV-2 (PCR) Negative (Negative) Influenza Type A (PCR) Negative (Negative) Influenza Type B (PCR) Negative (Negative) RSV (PCR) Negative (Negative) 09/25/24 Range/Units 22:28 WBC 22.37 H (4.4-10.8) 10^3/uL RBC 5.48 (4.36-5.78) 10^6/uL Hgb 14.4 (13.5-17.5) g/dL Hct 44.6 (40.0-50.0) % MCV 81 (80-95) fL MCH 26.3 L (27.0-33.0) pg MCHC 32.3 (32.0-36.0) % RDW 15.5 H (11.8-14.1) % Plt Count 317 (130-400) 10^3/uL MPV 8.8 (8.0-11.0) fL Immature Gran % 0.9 % Neutrophils % 89.0 % Lymphocytes % 5.5 % Monocytes % 4.0 % Eosinophils % 0.3 % Basophils % 0.3 % Nucleated RBC % 0.0 (0.0-0.3) % Absolute Neutrophils 19.91 H (1.2-6.7) 10^3/uL Absolute Lymphocytes 1.23 (1.2-3.4) 10^3/uL Absolute Monocytes 0.89 H (0.1-0.8) 10^3/uL Absolute Eosinophils 0.07 (0.0-0.7) 10^3/uL Absolute Basophils 0.07 (0.0-0.2) 10^3/uL VBG Lactate 2.4 H* (<or=2.0) mmol/L Sodium 137 (136-145) mmol/L Potassium 3.4 L (3.5-5.1) mmol/L Chloride 98 (98-107) mmol/L Carbon Dioxide 27.1 (21.0-32.0) mmol/L Anion Gap 11.9 H (3-11) mmol/L BUN 15 (7-18) mg/dL Creatinine 1.1 (0.70-1.30) mg/dL Est GFR (CKD-EPI 2020) 75.90 (mL/min/1.73m2) Glucose 196 H (74-106) mg/dL Calcium 9.8 (8.5-10.1) mg/dL Magnesium mg/dL Total Bilirubin 0.5 (0.2-1.0) mg/dL AST 14 L (15-37) U/L ALT 19 (16-63) U/L Alkaline Phosphatase 117 H (46-116) U/L Troponin I 16 (<or=76) ng/L NT-Pro-B Natriuret Pep 161 (<300) pg/mL Total Protein 8.6 H (6.4-8.2) g/dL Albumin 2.7 L (3.4-5.0) g/dL TSH 1.62 (0.36-3.74) uIU/mL COVID-19 Source SARS-CoV-2 (PCR) (Negative) Influenza Type A (PCR) (Negative) Influenza Type B (PCR) (Negative) RSV (PCR) (Negative) 09/25/24 22:36 Blood Culture - Pending Blood 09/25/24 22:30 Blood Culture - Pending Blood Intake and Output - 24 Hour Total 09/25/24 22:19 thru 09/26/24 08:02 Intake Total 1424.083 Balance 1424.083 Weight 145.5 kg Intake: IV 1424.083 Falls Risk Assessment History of Falls No History 09/25/24 22:26 Contributing Factors No Factors 09/25/24 22:26 Ambulatory Aids Independent 09/25/24 22:26 Tubes/Lines None 09/25/24 22:26 Gait Evaluation No gait disturbance 09/25/24 22:26 Cognition No cognitive impairment 09/25/24 22:26 Fall Total Score 0 09/25/24 22:26 Level of Risk Standard/Low Risk 09/25/24 22:26 Problems (Last Reviewed 09/16/24 @ 12:13 by CAMMIE Montalvo) HTN (hypertension) (Chronic) Acute respiratory failure with hypoxia (Acute) Persistent atrial fibrillation with RVR (Acute) Lactic acid acidosis (Acute) Severe sepsis (Acute) Community acquired pneumonia (Acute) Notes 09/26/24 02:19 Nursing Notes by Christopher Crooks PTs family updated on plan of care Nursing Note: Initialized on 09/26/24 02:19 - END OF NOTE 09/26/24 00:35 Nursing Notes by Christopher Crooks PT returned from CT Nursing Note: Initialized on 09/26/24 00:35 - END OF NOTE 09/26/24 00:34 Nursing Notes by Christopher Crooks [address] Nursing Note: Initialized on 09/26/24 00:34 - END OF NOTE v v v v v v v v v Sending and/or Receiving Nurses: Please use comment section below to note any information pertinent to the patient hand-off not included above. Information / Comments: Admit reason:Pt resented to ED fro SOB and found to have multifocal opacities to lungs dx with PNA. Pt has SOB with exertion but is off O2 and sating at 94% RA. Lactate is 2.4 recheck has been ordered. Neuro:a/o x 4 GI/:using urinal at bedside. needs urine collected. No BM since admission. LBM unknown Muskuloskeletal: standby assist OOB to chair Cardiac: Afib -RVR new onset Respiratory:RA sat 94%. Continuous O2 orders to keep above 92% if more than 4L o2 needed to contact provider IV: R and L arms Issues with continued HTN even after multiple doses of adenosine and dilt. Metoprolol orered 25 mg Q6H Report received from:
[2024-09-26 10:22] LABS: Lactate 1.7 mmol/L (<or=2.0)
[2024-09-26] MEDS: Enoxaparin 40 MG/0.4 ML SYR SC (10:28)
[2024-09-26 12:07] LABS: Bilirubin Negative (Negative); Blood Trace-intact (Negative); Clarity Clear (Clear); Glucose Negative (Negative); Ketones Negative (Negative); Leukocyte Esterase Negative (Negative); Nitrite Negative (Negative); Specific Gravity >= 1.030 (1.005-1.025); Urobilinogen 0.2 mg/dL (Up to 0.2); pH 5.5 (5-8)
[2024-09-26 12:26] LABS: Bacteria Many HPF (Negative); Crystals Few Amorphous HPF (Negative); Epithelial Cells Few HPF (Negative); Mucus Negative (Negative); Other Cells Negative (Negative); RBC Negative HPF (0-2)
[2024-09-26] MEDS: LINEZOLID 600 MG/300 ML BAG 300 MG IVPB ×2 (12:26→23:31)
[2024-09-26 12:27] LABS: C & S Indicated? Yes; Casts 3-5 Coarse Granular LPF (Negative)
--- NOTE | 2024-09-26 18:40 | W.PM.DS.N ---
Date of service: 09/26/24 Time of Service: 18:40 DS: Diagnosis Discharge Diagnosis (1) Severe sepsis: Status: Acute (2) Community acquired pneumonia: Status: Acute (3) Lactic acid acidosis: Status: Acute (4) Acute respiratory failure with hypoxia: Status: Acute (5) Persistent atrial fibrillation with RVR: Status: Acute (6) HTN (hypertension): Status: Chronic Discharge Plan Disposition Specific Acute Inpt Facility: [facility] Condition: Critical Condition: Stable Discharge Details Reason For Visit: SOB/pneumonia, AMS Admit Date/Time: 09/26/24 01:35 Admit Provider: Yakov De La Fuente Attending Provider: Yakov De La Fuente Primary Care Provider: Unknown,Unknown Hospital Course Hospital Course: When I arrived for the evening shift, I was informed by nursing staff that had called with a bed for Mr. Stuart. There are no new labs from this morning. From admit note: Assessment and plan (1) Severe sepsis: Status: Acute Assessment and plan: -patient meets criteria for severe sepsis with HR >120bpm, WBC 22, temp 101.7oF, CAP as source of infection and initial lactic acid of 2.4 -patient started on zosyn and linezolid, will continue -f/u blood culture results -f/u repeat lactic acid -f/u AM CBC- (2) Community acquired pneumonia: Status: Acute Assessment and plan: -likely source of infection as noted above (3) Lactic acid acidosis: Status: Acute Assessment and plan: -secondary to severe sepsis as noted above -f/u repeat LA (4) Acute respiratory failure with hypoxia: Status: Acute Assessment and plan: -secondary to CAP as noted above -currently requiring 2L NC -wean as tolerated with goal >92% (5) Persistent atrial fibrillation with RVR: Status: Acute Assessment and plan: -likely exacerbated by severe sepsis as noted above -Had been on diltiazem drip some drip while holding in the emergency department which has since been discontinued -Continue p.o. metoprolol -Continue starting Eliquis as patient is not on anticoagulation as been in A-fib for unknown amount of time (6) HTN (hypertension): Status: Chronic Assessment and plan: -hold home candesartan and HCTZ at this time History of Present Illness History of Present Illness Chief Complaint: shortness of breath Narrative: 64-year-old gentleman with past medical history of hypertension and recent diagnosis of pneumonia presented emergency department with shortness of breath palpitations. Patient stated that he was cleaning a toilet with bleach at around 1 PM in the afternoon and since that time he has had pretty consistent feeling of shortness of breath and palpitations but denies any chest pain. He states he was diagnosed with pneumonia about a week and a half ago and had been on antibiotics and steroids since that time. He denies any fevers, headache, lightheadedness, dizziness, chest pain, nausea vomiting or diarrhea. In the emergency department the patient was noted to being severely tachycardic requiring adenosine that slowed his heart rate and showed A-fib with RVR. He was given 2 doses of IV diltiazem without improvement of his heart rate was placed on a diltiazem drip. He was also noted to have elevated white blood cell count of 22.3, and oxygen requirement necessitating 2 L nasal cannula, and a lactic acid of 2.4. He was started on linezolid and Zosyn. At which time emergency room physician paged hospitalist for admission for patient with A-fib RVR likely secondary to failed outpatient therapy of a community-acquired pneumonia resulting in severe sepsis. Home Meds and New Rx's Prescriptions: No Action albuterol sulfate 90 mcg/actuation HFA aerosol inhaler 2 puff inhalation Q6H PRN (Reason: shortness of breath or wheezing) Qty: 8.5 0RF hydrochlorothiazide 25 mg tablet 25 mg PO DAILY candesartan 32 mg tablet 32 mg PO DAILY DS: Summary Quality:SDTN Health Related Social Needs: No Data to Display DS: Data Vitals/I&O Vitals and I&O: Vital Signs Temperature 37.1 C 09/26/24 17:01 Temperature Source Temporal Artery Scan 09/26/24 17:01 Pulse 72 09/26/24 17:01 Pulse Rhythm Regular 09/26/24 10:10 Pulse 100 H 09/26/24 08:50 Respiratory Rate 18 09/26/24 08:50 Respiratory Effort Normal 09/26/24 10:10 Blood Pressure 143/76 H 09/26/24 17:01 Blood Pressure Mean 119 09/26/24 08:02 Pulse Oximetry 92 09/26/24 17:01 Oxygen Delivery Method Nasal Cannula 09/26/24 14:54 Oxygen Flow Rate 1 09/26/24 10:10 Pain Level 0 09/26/24 10:10 Intake & Output 09/25/24 09/26/24 09/26/24 23:59 11:59 23:59 Intake Total 63.833 / 63.833 1410.250 / 1940.250 530 / 1940.250 Output Total 450 / 450 Balance 63.833 / 63.833 1410.250 / 1490.250 80 / 1490.250 Weight 145.5 kg 147 kg Intake: IV 63.833 / 63.833 1410.250 / 1760.250 350 / 1760.250 Oral 180 / 180 Output: Urine 450 / 450 Other: Urine Color Dark Aubrie Urine Appearance Clear Urine Odor None Data Completed and Pending Labs on day of discharge: Labs from last 24 hours 09/26/24 09/26/24 09/26/24 11:53 10:31 10:16 WBC RBC Hgb Hct MCV MCH MCHC RDW Plt Count MPV Immature Gran % Neutrophils % Lymphocytes % Monocytes % Eosinophils % Basophils % Nucleated RBC % Absolute Neutrophils Absolute Lymphocytes Absolute Monocytes Absolute Eosinophils Absolute Basophils VBG Lactate 1.7 Sodium Potassium Chloride Carbon Dioxide Anion Gap BUN Creatinine Est GFR (CKD-EPI 2020) Glucose Calcium Magnesium Total Bilirubin AST ALT Alkaline Phosphatase Troponin I NT-Pro-B Natriuret Pep Total Protein Albumin TSH Urine Color Yellow Urine Clarity Clear Urine pH 5.5 Ur Specific [place] >= 1.030 H Urine Protein >=300 H Urine Ketones Negative Urine Blood Trace-intact H Urine Nitrite Negative Urine Bilirubin Negative Urine Urobilinogen 0.2 Ur Leukocyte Esterase Negative Urine RBC Negative Urine WBC 10-20 H Ur Epithelial Cells Few Urine Crystals Few Amorphous Urine Bacteria Many Urine Casts 3-5 Coarse Granular Urine Mucus Negative Urine Other Negative Ur Culture Indicated? Yes Urine Glucose Negative COVID-19 Source SARS-CoV-2 (PCR) Influenza Type A (PCR) Influenza Type B (PCR) Urine Legionella Ag Pending M. pneumoniae Source Pending M. pneumoniae (PCR) Pending RSV (PCR) 09/26/24 09/25/24 09/25/24 01:33 23:37 22:28 WBC 22.37 H RBC 5.48 Hgb 14.4 Hct 44.6 MCV 81 MCH 26.3 L MCHC 32.3 RDW 15.5 H Plt Count 317 MPV 8.8 Immature Gran % 0.9 Neutrophils % 89.0 Lymphocytes % 5.5 Monocytes % 4.0 Eosinophils % 0.3 Basophils % 0.3 Nucleated RBC % 0.0 Absolute Neutrophils 19.91 H Absolute Lymphocytes 1.23 Absolute Monocytes 0.89 H Absolute Eosinophils 0.07 Absolute Basophils 0.07 VBG Lactate 2.4 H* Sodium 137 Potassium 3.4 L Chloride 98 Carbon Dioxide 27.1 Anion Gap 11.9 H BUN 15 Creatinine 1.1 Est GFR (CKD-EPI 2020) 75.90 Glucose 196 H Calcium 9.8 Magnesium 1.4 Total Bilirubin 0.5 AST 14 L ALT 19 Alkaline Phosphatase 117 H Troponin I Cancelled 19 16 NT-Pro-B Natriuret Pep 161 Total Protein 8.6 H Albumin 2.7 L TSH 1.62 Urine Color Urine Clarity Urine pH Ur Specific [place] Urine Protein Urine Ketones Urine Blood Urine Nitrite Urine Bilirubin Urine Urobilinogen Ur Leukocyte Esterase Urine RBC Urine WBC Ur Epithelial Cells Urine Crystals Urine Bacteria Urine Casts Urine Mucus Urine Other Ur Culture Indicated? Urine Glucose COVID-19 Source Nasopharynx SARS-CoV-2 (PCR) Negative Influenza Type A (PCR) Negative Influenza Type B (PCR) Negative Urine Legionella Ag M. pneumoniae Source M. pneumoniae (PCR) RSV (PCR) Negative 09/26/24 10:31 Sputum Sputum Culture - Pending 09/26/24 11:53 Urine - Reflex from Urine Culture - Pending 09/25/24 22:36 Blood Blood Culture - Pending 09/25/24 22:30 Blood Blood Culture - Pending Preliminary micro results at discharge 09/26/24 10:31 Sputum Culture - Pending Sputum 09/26/24 11:53 Urine Culture - Pending Urine - Reflex from Ua 09/25/24 22:36 Blood Culture - Pending Blood 09/25/24 22:30 Blood Culture - Pending Blood PFSH All Active Problems (Updated 09/26/24 @ 01:56 by Rosa Montoya MD) Hallucination (Acute) Respiratory failure (Acute) Sepsis (Acute) Atrial fibrillation with rapid ventricular response (Acute) HTN (hypertension) (Chronic) Acute respiratory failure with hypoxia (Acute) Persistent atrial fibrillation with RVR (Acute) Lactic acid acidosis (Acute) Severe sepsis (Acute) Community acquired pneumonia (Acute) Social History Smoking/Tobacco Use Status: Never Smoking risk assessment performed?: Yes Alcohol Intake: never Substance use type: marijuana Housing: house Do you feel safe at home: Yes Do you feel safe in your relationship?: Yes
[2024-09-26 22:46] LABS: Legionella Ag Detection Urine Negative (Negative)
[2024-09-26] MEDS: Acetaminophen 325 MG TAB PO (23:31)
[2024-09-27] VITALS (7 sets, daily range): BP systolic 130–176; BP diastolic 60–97; PULSE 74–96; RESP 14–22; TEMP 36.5–37.3; O2SAT 91–95
[2024-09-27] MEDS: Metoprolol 25 MG TAB PO ×5 (05:30→23:39)
[2024-09-27 06:54] LABS: Absolute Basophil Count 0.06 10^3/uL (0.0-0.2); Absolute Lymphocyte Count 1.61 10^3/uL (1.2-3.4); Absolute Monocyte Count 0.77 10^3/uL (0.1-0.8); Basophils % 0.5 %; HCT 39.1 % (40.0-50.0); HGB 12.6 g/dL (13.5-17.5); Immature Grans % 0.9 %; MCH 26.3 pg (27.0-33.0); MCHC 32.2 % (32.0-36.0); MCV 82 fL (80-95); MPV 8.9 fL (8.0-11.0); Monocytes % 6.7 %; Neutrophils % 74.9 %; Platelet Count 267 10^3/uL (130-400); RDW 15.8 % (11.8-14.1); RDW-SD 46.9 fL; WBC 11.52 10^3/uL (4.4-10.8)
[2024-09-27 06:58] LABS: Absolute Eosinophil Count 0.35 10^3/uL (0.0-0.7); Absolute Neutrophil Count 8.63 10^3/uL (1.2-6.7)
[2024-09-27 07:01] LABS: ESR 80 mm/hr (0-20)
[2024-09-27 07:28] LABS: ALT 14 U/L (16-63); AST 10 U/L (15-37); Albumin 2.2 g/dL (3.4-5.0); Alkaline Phosphatase 96 U/L (46-116); BUN 14 mg/dL (7-18); Bilirubin, Total 0.6 mg/dL (0.2-1.0); CREATININE 1.2 mg/dL (0.70-1.30); Calcium 9.1 mg/dL (8.5-10.1); Chloride 102 mmol/L (98-107); Estimated GFR 68.38 (mL/min/1.73m2); Glucose 195 mg/dL (74-106); Potassium 3.7 mmol/L (3.5-5.1); Sodium 140 mmol/L (136-145); Total Protein 7.5 g/dL (6.4-8.2)
[2024-09-27 07:36] LABS: TSH (W/Ref FT4) 2.04 uIU/mL (0.36-3.74)
[2024-09-27] MEDS: Enoxaparin 40 MG/0.4 ML SYR SC (11:06)
--- NOTE | 2024-09-27 11:28 | W.PM.PROGNOT ---
Date of Service Date of service: 09/27/24 Time of Service: 11:28 Assessment and Plan Assessment and plan (1) Severe sepsis: Status: Acute Assessment and plan: -patient meets criteria for severe sepsis with HR >120bpm, WBC 22, temp 101.7oF, CAP as source of infection and initial lactic acid of 2.4 -patient started on zosyn and linezolid, will continue -f/u blood culture results -f/u repeat lactic acid -f/u AM CBC- 2.23.25 CW broad spectrum abx for now. Multiple cultures pending (urine/sputum/blood) as well as legionella and mycoplasma. WBC down from 22 on admission to 11. Lactic acidosis has resolved (2) Community acquired pneumonia: Status: Acute Assessment and plan: -likely source of infection as noted above (3) Lactic acid acidosis: Status: Acute Assessment and plan: -secondary to severe sepsis as noted above -f/u repeat LA resolved (4) Acute respiratory failure with hypoxia: Status: Acute Assessment and plan: -secondary to CAP as noted above -currently requiring 2L NC -wean as tolerated with goal >92% (5) Persistent atrial fibrillation with RVR: Status: Acute Assessment and plan: -likely exacerbated by severe sepsis as noted above -Had been on diltiazem drip some drip while holding in the emergency department which has since been discontinued -Continue p.o. metoprolol -Continue starting Eliquis as patient is not on anticoagulation as been in A-fib for unknown amount of time (6) HTN (hypertension): Status: Chronic Assessment and plan: -hold home candesartan and HCTZ at this time 09/27/24 Restart as bp is now 147/95 (7) Renal cyst: Status: Acute Assessment and plan: Left renal mass-most likely cystic but will order recommended usn IMPRESSION: Infectious versus inflammatory bilateral pneumonitis. Indeterminate lesion of the upper pole of the left kidney may represent a slightly hyperdense cyst. Consider further evaluation with ultrasound. Additional imaging recommended. (8) Aortic aneurysm: Status: Chronic Assessment and plan: Ascending Aorta measured at 4.5cm. Pt will need surveillance and optimization in the outpatient setting. Per UTD guidelines the recommendation if for follow up in 6-12 months Subjective Subjective Interval history since last seen: Pt seen and examined in his room. POC d/w pt and family who were at bedside. POC d/w bedside nurse during MDR. PT reports intermittent episodes of palpitations/sob/dizziness/fatigue over the last year or so. No cardiac work up has been initiated in the past. No diagnostic monitoring has been done either. Exam Narrative Exam Narrative: HEENT-NCAT MMM EOMI PERRLA NECK-NO LAD NO JVE CV-RRR NO MRG PULM-CTAB NO AMU SPEAKS IN COMPLETE SENTENCES [id number] EXT-NO CCE BILAT NEURO-CN 2-12 INTACT TESTED PSYCH: ALERT, GIVES A LINEAR HISTORY Objective Last Vital Signs Temp 37.3 C 09/27/24 07:44 Pulse 74 09/27/24 07:44 Resp 22 09/27/24 07:44 BP 147/95 H 09/27/24 07:44 Pulse Ox 93 09/27/24 07:44 Laboratory Results - last 24 hr 09/26/24 09/27/24 09/27/24 11:53 05:35 06:37 WBC 11.52 H RBC 4.80 Hgb 12.6 L Hct 39.1 L MCV 82 MCH 26.3 L MCHC 32.2 RDW 15.8 H Plt Count 267 MPV 8.9 Immature Gran % 0.9 Neutrophils % 74.9 Lymphocytes % 14.0 Monocytes % 6.7 Eosinophils % 3.0 Basophils % 0.5 Nucleated RBC % 0.0 Absolute Neutrophils 8.63 H Absolute Lymphocytes 1.61 Absolute Monocytes 0.77 Absolute Eosinophils 0.35 Absolute Basophils 0.06 ESR 80 H Sodium Cancelled 140 Potassium Cancelled 3.7 Chloride Cancelled 102 Carbon Dioxide Cancelled 30.0 Anion Gap Cancelled 8.0 BUN Cancelled 14 Creatinine Cancelled 1.2 Est GFR (CKD-EPI 2020) Cancelled 68.38 Glucose Cancelled 195 H Calcium Cancelled 9.1 Total Bilirubin 0.6 AST 10 L ALT 14 L Alkaline Phosphatase 96 Total Protein 7.5 Albumin 2.2 L Procalcitonin 0.20 TSH 2.04 Urine Color Yellow Urine Clarity Clear Urine pH 5.5 Ur Specific [place] >= 1.030 H Urine Protein >=300 H Urine Ketones Negative Urine Blood Trace-intact H Urine Nitrite Negative Urine Bilirubin Negative Urine Urobilinogen 0.2 Ur Leukocyte Esterase Negative Urine RBC Negative Urine WBC 10-20 H Ur Epithelial Cells Few Urine Crystals Few Amorphous Urine Bacteria Many Urine Casts 3-5 Coarse Granular Urine Mucus Negative Urine Other Negative Ur Culture Indicated? Yes Urine Glucose Negative Time Spent with Patient Time Spent with Patient: 35-49 minutes Time was spent: preparing to see the patient(eg.review tests), obtaining and/or reviewing separately otained hiistory, ordering medications,tests, procedures, referring, communicating with other health respite care provider, indepentently interpreting results, counseling the patient and care coordination
[2024-09-27] MEDS: LINEZOLID 600 MG/300 ML BAG 300 MG IVPB ×2 (12:11→23:39)
[2024-09-27] MEDS: Apixaban 5 MG TAB PO ×2 (12:13→19:53)
--- NOTE | 2024-09-28 | DI.US_ITS ---
Exam(s) US RENAL EXAM: US RENAL CLINICAL HISTORY: left renal mass TECHNIQUE: Ultrasound of both kidneys performed using standard protocol. COMPARISON: CT CT CHEST WO from 09/26/2024 US US ECHOCARDIOGRAM from 09/28/2024 FINDINGS: RIGHT KIDNEY: Measures 11 cm in length. No cysts evident. Normal cortical thickness and corticomedullary differenti ation .No solid masses No intrarenal calculi nor hydronephrosis. LEFT KIDNEY: Measures 12 cm in length. There is a 4 x 3.4 x 3.4 cm benign partially exophytic benign cyst in the superior pole region of the left kidney, this corresponding to what was seen on recent chest CT scan. Normal cortical thickness and corticomedullary differentiaion. No solids masses. No intrarenal calc maame nor hydonephrosis. URINARY BLADDER: Prevoid volume is 272 cc Postvoid volume is 0 cc No evidence of bladder mass nor diverticuli. Ureterovesical jets: Both not visualized. IMPRESSION: 1. There is a solitary 4 cm benign cyst in the superior pole region of the left kidney which corresp onds to what was seen on recent low-dose chest CT scan. 2. No solid lesions seen in either kidney and no obvious calculi nor hydronephrosis. DATA REPOSITORY:
[2024-09-28 03:22] VITALS: BP 149/85; PULSE 73; RESP 20; TEMP 36.6; O2SAT 94
[2024-09-28] MEDS: Normal Saline Flush 10 ML SYR ×2 (04:22→05:07)
[2024-09-28] MEDS: Metoprolol 25 MG TAB PO ×4 (05:03→23:04)
[2024-09-28 06:44] LABS: Abs Immature Grans 0.05 10^3/uL (0.0-0.06); Absolute Basophil Count 0.05 10^3/uL (0.0-0.2); Absolute Eosinophil Count 0.21 10^3/uL (0.0-0.7); Absolute Lymphocyte Count 1.61 10^3/uL (1.2-3.4); Absolute Monocyte Count 0.73 10^3/uL (0.1-0.8); Absolute Neutrophil Count 6.35 10^3/uL (1.2-6.7); Basophils % 0.6 %; Eosinophils % 2.3 %; HCT 37.8 % (40.0-50.0); HGB 11.9 g/dL (13.5-17.5); Immature Grans % 0.6 %; Lymphocytes % 17.9 %; MCHC 31.5 % (32.0-36.0); MCV 83 fL (80-95); MPV 8.8 fL (8.0-11.0); Monocytes % 8.1 %; Neutrophils % 70.5 %; Platelet Count 251 10^3/uL (130-400); RBC 4.58 10^6/uL (4.36-5.78); RDW 15.8 % (11.8-14.1); RDW-SD 47.6 fL
[2024-09-28 06:47] LABS: ESR 77 mm/hr (0-20)
[2024-09-28 07:11] LABS: ALT 11 U/L (16-63); AST 12 U/L (15-37); Albumin 2.2 g/dL (3.4-5.0); Alkaline Phosphatase 91 U/L (46-116); Anion Gap 8.4 mmol/L (3-11); BUN 12 mg/dL (7-18); Bilirubin, Total 0.5 mg/dL (0.2-1.0); CO2 28.6 mmol/L (21.0-32.0); CREATININE 1.2 mg/dL (0.70-1.30); Calcium 8.5 mg/dL (8.5-10.1); Chloride 102 mmol/L (98-107); Estimated GFR 68.38 (mL/min/1.73m2); Glucose 199 mg/dL (74-106); Potassium 3.2 mmol/L (3.5-5.1); Sodium 139 mmol/L (136-145); Total Protein 7.3 g/dL (6.4-8.2)
[2024-09-28 07:34] VITALS: BP 152/84; PULSE 68; RESP 18; TEMP 36.1; O2SAT 95
[2024-09-28] MEDS: Apixaban 5 MG TAB PO ×2 (07:52→19:47)
--- NOTE | 2024-09-28 08:37 | NUR.NOTE ---
pt Axox4 this AM, denies pain, pt had episode of what he described as pounding heartbeat in my back and became suddently diaphoretic, denied pain during episode. Noted to be NSR in 80s during this time, tele history reviewed with ICU nurses and no ectopy noted, will continue to monitor. Of note, pt did go into afib overnight and required additional metoprolol dose. Pt given eliquis this AM for paroxysmal afib. Tolerating diet, denies pain, educated on dysrhythmia. Pending echo and renal u/s at noon today, asked MD Messina about K+ replacement due to K+ level of 3.2. Resting in bed with call light in reach, bed low/locked. Nursing Note:
[2024-09-28 11:00] VITALS: BP 162/85; PULSE 69; RESP 16; TEMP 36.8; O2SAT 96
[2024-09-28] MEDS: Potassium Chloride 20 MEQ TABCR PO ×2 (11:08→19:47)
--- NOTE | 2024-09-28 12:32 | CMPROGNOTE_ITS ---
Date of service: 09/28/24 Time of Service: 12:32 Care Management Progress Note Progress Note Text Progress Note Text: Julia was sitting up in the bed when CM met with him today. His , Rosanne, was present as well. Both were pleasant and agreeable to conversation. Julia stated that he is feeling much better than he did when admitted, but that he needs to have some more testing done. He is scheduled for a renal U/S and an echocardiogram this afternoon. Julia has a primary care physician, Dr. Charles Yarbrough at [facility]. This PCP is not able to be entered into the computer system here at [facility] as he is not local. Julia feels he has a good relationship with his PCP and is not seeking more local care at this time. Discharge Potential Discharge Needs: PCP F/U Appt Anticipated Barriers to Discharge: None Identified Patient/Family Education Needs: Review discharge instructions, discuss Ask Me Three Transportation: Private vehicle (with his , Rosanne) Plan: Anticipate that Julia will be discharged home with no new services. He will f/u with his PCP and continue per his plan of care. Julia will transport home with his . CM will continue to follow. Social Determinants of Health Screening Social Determinants of Health last assessed: 09/28/24 Will the Patient Participate in the Screening?: Yes Do you worry about having a steady place to live?: no Problems where you live: no known problems In the past 12 months, have you had to go without electric, gas, oil or water in your home?: no Have you or anyone in your house had to go without enough food to eat?: no Has lack of transportation kept you from medical appointments or from doing things needed for daily living?: no Has anyone in your life made you feel unsafe or unsupported?: no How hard is it for you to pay for the very basics like food, housing, medical care, and heating? Would you say it is:: Not hard at all Do you want help finding or keeping work or a job?: I do not need or want help If for any reason you need help with day-to-day activities such as bathing, preparing meals, shopping, managing finances, etc., do you get the help you need?: I don?t need any help How often do you feel lonely or isolated from those around you?: Never Do you speak a language other than Mongolian at home?: No Does the patient want assistance with any of the above?: No
--- NOTE | 2024-09-28 14:00 | NUR.NOTE ---
Documentation by Zoila Dejesus, student [employer] reviewed. Agree with her findings. Spring Bellamy, MSN, RNC-OB, clinical instructor.
--- NOTE | 2024-09-28 14:08 | NUR.NOTE ---
patient back from echo and renal u/s, denies pain or needs, discussed that results will be in later today. Possible d/c to home if negative. Asked MD Messina about continuation of IV abx since all cultures negative at this time, afebrile and WBC is WNL. Bed low/locked, call reza in reach, family at bedside. Nursing Note:
[2024-09-28] MEDS: LINEZOLID 600 MG/300 ML BAG 300 MG IVPB ×2 (14:33→23:04)
--- NOTE | 2024-09-28 14:48 | PHA.REVIEW2 ---
Pharmacy Admission Review Admission Clinical Review Admission Pharmacy Review: Renal cyst (Acute) Acute respiratory failure with hypoxia (Acute) Persistent atrial fibrillation with RVR (Acute) Lactic acid acidosis (Acute) Severe sepsis (Acute) Community acquired pneumonia (Acute) acetaminophen (From Percocet) Allergy (Severe, Verified 09/25/24 22:30) Itching oxycodone (From Percocet) Allergy (Severe, Verified 09/25/24 22:30) Itching Resuscitation Status Full Code Height 6 ft Weight 147 kg Comments Comments/Follow Ups: Watch BP, HR, K+, labs, for serology results, for culture results and for med changes. Pharmacy Admission Review Renal Dosing Renal Dosing: BUN 12 mg/dL (7-18) 09/28/24 06:10 Creatinine 1.2 mg/dL (0.70-1.30) 09/28/24 06:10 Medications needing adjustments: Reviewed (Crcl ~95 mL/min current meds are okay) Anticoagulation Anticoagulation: Hgb 11.9 g/dL (13.5-17.5) L 09/28/24 06:10 Hct 37.8 % (40.0-50.0) L 09/28/24 06:10 Plt Count 251 10^3/uL (130-400) 09/28/24 06:10 Creatinine 1.2 mg/dL (0.70-1.30) 09/28/24 06:10 DVT Prophylaxis: N/A Therapeutic Anticoagulation: Reviewed Medications: Apixaban (started due to afib per H&P) Opiate Usage Evaluate Pain Scale/Pains Meds: N/A Relevant Labs Relevant Labs: ESR 77 mm/hr (0-20) H 09/28/24 06:10 Sodium 139 mmol/L (136-145) 09/28/24 06:10 Potassium 3.2 mmol/L (3.5-5.1) L 09/28/24 06:10 Chloride 102 mmol/L (98-107) 09/28/24 06:10 Magnesium 1.4 mg/dL 09/25/24 23:37 Electrolytes, C-Reactive P, ESR: Reviewed (PO potassium ordered) DM Control DM Control: Glucose 199 mg/dL (74-106) H 09/28/24 06:10 DM Control: Intervened (no DM noted in medical history, no A1c on file, talked to provider and A1c was ordered ) Cardiac Review Cardiac Review: Troponin I Cancelled 09/26/24 01:33 NT-Pro-B Natriuret Pep 161 pg/mL (<300) 09/25/24 22:28 BP, HR, EF%: Reviewed (BP has been elevated most of admission so far, HR has improved since admission) QTc Review QTc: Reviewed (QTc was 494 and 457 per EKGs done on admission, current meds are okay) IV to PO Switch IV Medications: Reviewed Home Meds Home Med List reviewed: Intervened (Progress note mentioned resuming home BP meds, but neither have been ordered yet. Will check in with provider.) Relevent Home Meds Not ordered & why?: albuterol (PRN), candesartan and hydrocholorothiazide (on hold per H&P) Current Meds Current Medication Order Review: Intervened (Asked provider about discontining the diltiazem drip as the patient was no longer on this and about the two different PO potassium orders.) Pharmacy Antibiotic Review Pharmacy Antibiotic Activity: C/S review and Reviewed, no change Comments: Blood cultures no growth @ 48 hours. Sputum culture growing normal андрей. Legionella negative, other serology pending. Zosyn and linezolid continue for pneumonia (day 3) Comments Comments/Follow Ups: Watch BP, HR, K+, labs, for serology results, for culture results and for med changes.
[2024-09-28 15:32] VITALS: BP 163/83; PULSE 96; RESP 16; TEMP 36.6; O2SAT 96
[2024-09-28] MEDS: Lactobacillus Acidophilus CAP 1 CAP PO ×2 (16:04→19:47)
--- NOTE | 2024-09-28 18:38 | PGE_ITS ---
Date of Service Date of service: 09/28/24 Time of Service: 18:38 Assessment and Plan Assessment and plan (1) Severe sepsis: Status: Acute Assessment and plan: -patient meets criteria for severe sepsis with HR >120bpm, WBC 22, temp 101.7oF, CAP as source of infection and initial lactic acid of 2.4 -patient started on zosyn and linezolid, will continue -f/u blood culture results -f/u repeat lactic acid -f/u AM CBC- 2.23.25 CW broad spectrum abx for now. Multiple cultures pending (urine/sputum/blood) as well as legionella and mycoplasma. WBC down from 22 on admission to 11. Lactic acidosis has resolved 2..25 Will deescalate abx coverage. Stop zosyn and zyvox and start rocephin and zmax. Recheck cbc and fever curve in am (2) Community acquired pneumonia: Status: Acute Assessment and plan: -likely source of infection as noted above (3) Lactic acid acidosis: Status: Acute Assessment and plan: -secondary to severe sepsis as noted above -f/u repeat LA resolved (4) Acute respiratory failure with hypoxia: Status: Acute Assessment and plan: -secondary to CAP as noted above -currently requiring 2L NC -wean as tolerated with goal >92% (5) Persistent atrial fibrillation with RVR: Status: Acute Assessment and plan: -likely exacerbated by severe sepsis as noted above -Had been on diltiazem drip some drip while holding in the emergency department which has since been discontinued -Continue p.o. metoprolol -Continue starting Eliquis as patient is not on anticoagulation as been in A-fib for unknown amount of time 09/28/24 Pt is now on eliquis. HR is 96 and pt is on metoprolol 25mg q6 (6) HTN (hypertension): Status: Chronic Assessment and plan: -hold home candesartan and HCTZ at this time 09/27/24 Restart as bp is now 147/95 09/28/24 Restarted hctz but candersartan not available here. Will start Valsartan (7) Renal cyst: Status: Acute Assessment and plan: Left renal mass-most likely cystic but will order recommended usn IMPRESSION: Infectious versus inflammatory bilateral pneumonitis. Indeterminate lesion of the upper pole of the left kidney may represent a slightly hyperdense cyst. Consider further evaluation with ultrasound. Additional imaging recommended. 09/28/24 Renal usn benign. (8) Aortic aneurysm: Status: Chronic Assessment and plan: Ascending Aorta measured at 4.5cm. Pt will need surveillance and optimization in the outpatient setting. Per UTD guidelines the recommendation if for follow up in 6-12 months 09/28/24 D/w Pt. Will need serial surveillance Subjective Subjective Interval history since last seen: Pt seen and examined in his room this afternoon. POC d/w pt and his who was at bedside. POC also d/w bedside nurse during MDR. Echo pending. Renal usn results discussed. Pt would like to stay until echo is formally read Exam Narrative Exam Narrative: HEENT-NCAT MMM EOMI PERRLA NECK-NO LAD NO JVE CV-RRR NO MRG PULM-CTAB NO AMU SPEAKS IN COMPLETE SENTENCES [id number] EXT-NO CCE BILAT NEURO-CN 2-12 INTACT TESTED PSYCH: ALERT, GIVES A LINEAR HISTORY Objective Last Vital Signs Temp 36.6 C 09/28/24 15:32 Pulse 96 H 09/28/24 15:32 Resp 16 09/28/24 15:32 BP 163/83 H 09/28/24 15:32 Pulse Ox 96 09/28/24 15:32 Laboratory Results - last 24 hr 09/26/24 09/28/24 11:53 06:10 WBC 9.00 RBC 4.58 Hgb 11.9 L Hct 37.8 L MCV 83 MCH 26.0 L MCHC 31.5 L RDW 15.8 H Plt Count 251 MPV 8.8 Immature Gran % 0.6 Neutrophils % 70.5 Lymphocytes % 17.9 Monocytes % 8.1 Eosinophils % 2.3 Basophils % 0.6 Nucleated RBC % 0.0 Absolute Neutrophils 6.35 Absolute Lymphocytes 1.61 Absolute Monocytes 0.73 Absolute Eosinophils 0.21 Absolute Basophils 0.05 ESR 77 H Sodium 139 Potassium 3.2 L Chloride 102 Carbon Dioxide 28.6 Anion Gap 8.4 BUN 12 Creatinine 1.2 Est GFR (CKD-EPI 2020) 68.38 Glucose 199 H Calcium 8.5 Total Bilirubin 0.5 AST 12 L ALT 11 L Alkaline Phosphatase 91 Total Protein 7.3 Albumin 2.2 L Urine Legionella Ag Negative Time Spent with Patient Time Spent with Patient: 25-34 minutes Time was spent: preparing to see the patient(eg.review tests), obtaining and/or reviewing separately otained hiistory, ordering medications,tests, procedures, referring, communicating with other health critical care physician assistant, indepentently interpreting results, counseling the patient and care coordination
[2024-09-28 19:33] VITALS: BP 165/85; PULSE 72; RESP 17; TEMP 36.5; O2SAT 95
[2024-09-28] MEDS: Normal Saline Flush 10 ML SYR IVP (19:47)
[2024-09-28 23:16] VITALS: BP 162/81; PULSE 73; RESP 17; TEMP 36.4; O2SAT 94
[2024-09-29] MEDS: cefTRIAXone 1,000 MG in Normal Saline 50 ML 100 MG IVPB (00:44)
[2024-09-29] MEDS: Acetaminophen 325 MG TAB PO ×2 (02:44→08:35)
[2024-09-29 02:57] VITALS: BP 172/90; PULSE 70; RESP 16; TEMP 36.8; O2SAT 96
[2024-09-29] MEDS: Lactobacillus Acidophilus CAP 1 CAP PO (05:51)
[2024-09-29] MEDS: Metoprolol 25 MG TAB PO ×3 (05:51→17:35)
[2024-09-29 06:49] LABS: Abs Immature Grans 0.03 10^3/uL (0.0-0.06); Absolute Basophil Count 0.04 10^3/uL (0.0-0.2); Absolute Eosinophil Count 0.24 10^3/uL (0.0-0.7); Absolute Lymphocyte Count 1.47 10^3/uL (1.2-3.4); Absolute Monocyte Count 0.58 10^3/uL (0.1-0.8); Absolute Neutrophil Count 6.27 10^3/uL (1.2-6.7); Basophils % 0.5 %; Eosinophils % 2.8 %; HCT 35.9 % (40.0-50.0); HGB 11.5 g/dL (13.5-17.5); Immature Grans % 0.3 %; MCH 26.1 pg (27.0-33.0); MCV 81 fL (80-95); MPV 8.9 fL (8.0-11.0); Monocytes % 6.7 %; Neutrophils % 72.7 %; Platelet Count 252 10^3/uL (130-400); RBC 4.41 10^6/uL (4.36-5.78); RDW 15.7 % (11.8-14.1); RDW-SD 46.3 fL; WBC 8.63 10^3/uL (4.4-10.8)
[2024-09-29 07:07] LABS: ESR 78 mm/hr (0-20)
[2024-09-29 07:13] LABS: ALT 11 U/L (16-63); AST 12 U/L (15-37); Albumin 2.2 g/dL (3.4-5.0); Alkaline Phosphatase 86 U/L (46-116); Anion Gap 8.1 mmol/L (3-11); BUN 11 mg/dL (7-18); Bilirubin, Total 0.3 mg/dL (0.2-1.0); CO2 26.9 mmol/L (21.0-32.0); CREATININE 1.1 mg/dL (0.70-1.30); Calcium 8.7 mg/dL (8.5-10.1); Chloride 104 mmol/L (98-107); Glucose 186 mg/dL (74-106); Potassium 3.5 mmol/L (3.5-5.1); Sodium 139 mmol/L (136-145); Total Protein 7.2 g/dL (6.4-8.2)
[2024-09-29 07:36] VITALS: BP 155/84; PULSE 65; RESP 18; TEMP 36.7; O2SAT 95
[2024-09-29 07:44] LABS: Hemoglobin A1C 8.6 % (<5.7)
[2024-09-29] MEDS: Apixaban 5 MG TAB PO (08:35)
[2024-09-29] MEDS: Potassium Chloride 20 MEQ TABCR PO (08:35)
[2024-09-29] MEDS: Valsartan 80 MG TAB PO (08:36)
[2024-09-29] MEDS: hydroCHLOROthiazide 12.5 MG TAB PO (08:36)
[2024-09-29] MEDS: Azithromycin 250 MG TAB PO (08:37)
[2024-09-29 11:03] VITALS: BP 155/88; PULSE 65; RESP 18; TEMP 36; O2SAT 96
--- NOTE | 2024-09-29 13:18 | CMDISCH_ITS ---
Date of service: 09/29/24 Time of Service: 13:18 LACE Index Scoring Tool Questions: Length of Stay (in days): 3 Was the patient admitted via the E.D.?: Yes E.D. Visits: 1 Answers: Total Score: 7 Risk of Readmission: Low Risk Care Management Discharge Plan Reason for Hospitalization: Pneumonia Discharge Plan: Julia will be discharged home this afternoon with no new services. He has a new diagnosis of type 2 diabetes, and will be having a family educator consult prior to leaving. Julia was given some community resources for diabetic support by CM. Julia stated that he is a bit overwhelmed by this diagnosis, but he will not let it get him down. He is ready to make some lifestyle changes. Julia will follow up with his PCP and continue per his plan of care. Julia will transport home in a private vehicle with his . Patient/Family Education Needs: Review of discharge instructions, activity, limitations, beginning of diabetic education, and discuss ask me three. [facility] Health Related Social Needs: No Data to Display
--- NOTE | 2024-09-29 13:35 | NUR.NOTE ---
assessment completed by Yane PETERSON reviewed, this RN is in concurrence with findings and documentation of it. Patient is Axox4 this shift, reports mild pain to R foot from stepping on bedside table on 09/28 but no open wound or deformity noted. Independent in room, tolerating PO intake and having more solid BMs after starting probiotics. PIV intact, on metoprolol QID and telemetry showing NSR rate controlled. Patient has A1C of 8.6 with new DM2 dx, pt given extensive education on both afib and DM2 as well as handouts, pt is overwhelmed but motivated to change lifestyle and diet to improve his disease process with DM2. Pending DM educator and possible new meds from hospitalist for DM2. Possible dc to home today. Nursing Note:
[2024-09-29 15:16] VITALS: BP 160/88; PULSE 69; RESP 18; TEMP 37; O2SAT 95
--- NOTE | 2024-09-29 15:51 | W.INDIABCONS ---
Date of service: 09/29/24 Time of Service: 15:51 Diabetes Inpatient Consult Reason for Visit: received consult for diabetes education/mgt DESCRIPTION/ASSESSMENT: Was able to see Mr Stuart just prior to discharge yesterday as he is newly dx with diabetes with A1c was 8.6. He was sitting in bed at my visit and feeling overwhelmed by this dx on top of the issues he's had with PNA and respiratory illness the last month. He does relay that his kids hauled in like 40 lbs of halloween candy and has been eating a significant amount of added sugar the last 3 months. Denies family hx of diabetes. PT given rx for glucometer and will start metformin. I reviewed eating to manage blood sugar is just healthy eating - low added sugar, high fiber, low saturated fat and eating traditional food choices and staying away from processed foods. Agreed with him that 10% weight loss would be a great goal to shoot for to help with insulin sensitivity. We reviewed some handouts that he will take home and will meet once he is ready to come in with his for outpatient education/ diet guidance INTERVENTION: will follow up outpatient setting Time Spent in Nutritional Counseling and Treatment: 20 min
[2024-09-29] MEDS: Normal Saline Flush 10 ML SYR IVP (16:13)
--- NOTE | 2024-09-29 16:58 | W.PM.DS.N ---
Date of service: 09/29/24 Time of Service: 16:58 DS: Diagnosis Discharge Diagnosis (1) Severe sepsis: Status: Acute (2) Community acquired pneumonia: Status: Acute (3) Acute respiratory failure with hypoxia: Status: Acute (4) Persistent atrial fibrillation with RVR: Status: Acute (5) HTN (hypertension): Status: Chronic (6) Renal cyst: Status: Acute (7) Aortic aneurysm: Status: Chronic (8) Type 2 diabetes mellitus: Status: Acute Discharge Plan Disposition Patient Disposition: Home Condition: Stable Discharge Details Reason For Visit: SOB/pneumonia, AMS Admit Date/Time: 09/26/24 01:35 Admit Provider: Yakov De La Fuente Attending Provider: Yakov De La Fuente [facility]: 64-year-old gentleman with past medical history of hypertension and recent diagnosis of pneumonia presented emergency department with shortness of breath and palpitations and some depression of metnal status. He met criteria for severe sepsis with fever, WBC of 22, tachycardia, and elevated lactate and was treated with fluids and pip/tazo and linazolid. CT showed bilateral pneumonitis. He was initially hypoxic but this resolved. WBC and lactate normalized. He was transitioned 09/29 for ceftriaxone and azithromycin (previous treatment was levofloxacin) and continued to [facility]3]ve. He was discharged on 2 more days of antibiotics amox/clav and azithro orally. New atrial fibrillation was also found and he was briefly on diltiazem drip before being transitioned to oral metoprolol 25mg QID. He was started on apixaban with a [id number] of 2. His rate was controlled in the 60s-70s on metoprolol and he was transitioned to metoprolol succinate 100mg daily at discharge. Echocardiogram done 09/29 with official read pending at time of discharge. His blood pressure was above goal of 130/80. He was treated with the less potent valsartan 80mg because candesartan was not formulary. His HCTZ was given at a lower dose of 12.5mg because of low potassium, which was also supplemented orally. He was discharged on his previous medications along with the new metoprolol This should be adjusted as an outpatient. If the potassium remains low, spironolactone would be a good choice given the hypokalemia along with consideration of plasma renin activity and aldosterone testing. His blood sugars were noted to be elevated and a hemoglobin A1c returned at 8.6%. He was given a diagnosis of new type 2 DM. He was started on metformin and glucose monitoring equipment was sent to his pharmacy. Diet and exercise were discussed. Future GLP-1 use was also discussed. He was motivated to control his blood sugars. His chest CT also showed dilation of his ascending aorta to 4.5cm. This should be followed as an outpatient. CT also showed an indeterminate renal cyst on left. U/s confirmed a 4cm benign cyst in the left kidney. No follow up is recommended. FOLLOW UP: - PCP in 1-2 weeks - follow up read of echocardiogram - follow up aortic dilation in 1 year - titrate diabetic and hypertensive medications - check potassium at follow up - diabetic education, repeat A1c in 3 months Home Meds and New Rx's Prescriptions: New azithromycin 250 mg Tablet 250 mg PO DAILY 2 Days Qty: 2 0RF Eliquis 5 mg Tablet 5 mg PO BID Qty: 180 1RF amoxicillin-pot clavulanate 875-125 mg tablet 1 tab PO BID 2 Days Qty: 4 0RF Rx Instructions: start 09/30 metoprolol succinate 100 mg tablet extended release 24 hr 100 mg PO DAILY Qty: 90 0RF metformin 500 mg tablet extended release 24 hr 500 mg PO DAILY Qty: 30 1RF (DME) blood-glucose meter [FreeStyle Glasco Lite] Kit See Rx Instructions .Route Qty: 1 0RF Rx Instructions: As directed (DME) lancets [FreeStyle Lancets] 28 gauge misc See Rx Instructions .Route Qty: 100 0RF Rx Instructions: As directed (DME) FreeStyle Test Strip See Rx Instructions .Route Qty: 100 11RF Rx Instructions: As directed Continued albuterol sulfate 90 mcg/actuation HFA aerosol inhaler 2 puff inhalation Q6H PRN (Reason: shortness of breath or wheezing) Qty: 8.5 0RF hydrochlorothiazide 25 mg tablet 25 mg PO DAILY candesartan 32 mg tablet 32 mg PO DAILY Discharge Instructions Instructions: Type 2 diabetes, Atrial Fibrillation (DC) Additional Instructions: finish 2 more days of antibiotics for the pneumonia, starting Saturday 09/30 Work on diet and exercise and self care as we discussed to control the blood sugar. Follow up with your primary care provider for this and your blood pressure. Stand Alone Forms: Nursing Discharge Form Referrals: Charles Yarbrough [Other] (PCP, needs follow up) Activity:: Activity as Tolerated Equipment/Supplies:: Blood Glucose Monitor Diet:: Carb Counting Discharge Orders Discharge Orders: Discharge Order (Routine); Ordered 09/29/24 Ordered By: Saul Casey DS: Summary Time Spent with Patient providing and/or coordinating discharge services: Greater than 30 minutes Status at Discharge Functional status at discharge: independent ambulation Overall status at discharge: patient is back to baseline Mental Status: mental status grossly normal Speech and Movement: speech and movement normal Mood: congruent mood Affect: normal affect Quality:SDOH Health Related Social Needs: No Data to Display Exam Narrative Exam Narrative: GEN: Alert and oriented, NAD CV-RRR NO MRG PULM-CTAB NO AMU SPEAKS IN COMPLETE SENTENCES ABD-soft, NT/ND EXT-NO CCE BILAT Psych Mental Status: mental status grossly normal Speech and Movement: speech and movement normal Mood: congruent mood Affect: normal affect DS: Data Vitals/I&O Vitals and I&O: Vital Signs Temperature 37.0 C 09/29/24 15:16 Temperature Source Temporal Artery Scan 09/29/24 15:16 Pulse 69 09/29/24 15:16 Pulse Rhythm Regular 09/26/24 10:10 Pulse 100 H 09/26/24 08:50 Respiratory Rate 18 09/29/24 15:16 Respiratory Effort Normal 09/26/24 10:10 Blood Pressure 160/88 H 09/29/24 15:16 Blood Pressure Mean 119 09/26/24 08:02 Pulse Oximetry 95 09/29/24 15:16 Oxygen Delivery Method Room Air 09/29/24 15:16 Oxygen Flow Rate 0 09/29/24 15:16 Pain Level 6 09/29/24 08:35 Comment NRS notified 09/29/24 15:16 Intake & Output 09/28/24 09/29/24 09/29/24 23:59 11:59 23:59 Intake Total 1190 / 2530 840 / 840 Balance 1190 / 2530 840 / 840 Intake: IV 400 / 800 350 / 350 Oral 790 / 1730 490 / 490 Other: Comment x1 in toilet pT stated they urinated this morning Data Completed and Pending Labs on day of discharge: Labs from last 24 hours 09/29/24 06:21 WBC 8.63 RBC 4.41 Hgb 11.5 L Hct 35.9 L MCV 81 MCH 26.1 L MCHC 32.0 RDW 15.7 H Plt Count 252 MPV 8.9 Immature Gran % 0.3 Neutrophils % 72.7 Lymphocytes % 17.0 Monocytes % 6.7 Eosinophils % 2.8 Basophils % 0.5 Nucleated RBC % 0.0 Absolute Neutrophils 6.27 Absolute Lymphocytes 1.47 Absolute Monocytes 0.58 Absolute Eosinophils 0.24 Absolute Basophils 0.04 ESR 78 H Sodium 139 Potassium 3.5 Chloride 104 Carbon Dioxide 26.9 Anion Gap 8.1 BUN 11 Creatinine 1.1 Est GFR (CKD-EPI 2020) 75.90 Glucose 186 H Hemoglobin A1c 8.6 H Calcium 8.7 Total Bilirubin 0.3 AST 12 L ALT 11 L Alkaline Phosphatase 86 Total Protein 7.2 Albumin 2.2 L Preliminary micro results at discharge 09/25/24 22:36 Blood Culture - Preliminary Blood NO GROWTH 72 HOURS 09/25/24 22:30 Blood Culture - Preliminary Blood NO GROWTH 72 HOURS PFSH All Active Problems (Updated 09/29/24 @ 15:15 by Saul Casey) Type 2 diabetes mellitus (Acute) Palpitations (Acute) Aortic aneurysm (Chronic) Renal cyst (Acute) Hallucination (Acute) Respiratory failure (Acute) Sepsis (Acute) Atrial fibrillation with rapid ventricular response (Acute) HTN (hypertension) (Chronic) Acute respiratory failure with hypoxia (Acute) Persistent atrial fibrillation with RVR (Acute) Lactic acid acidosis (Acute) Severe sepsis (Acute) Community acquired pneumonia (Acute) Social History Smoking/Tobacco Use Status: Never Smoking risk assessment performed?: Yes Alcohol Intake: never Substance use type: marijuana Housing: house Do you feel safe at home: Yes Do you feel safe in your relationship?: Yes Time Spent with Patient Time Spent with Patient: 45-69 minutes Time was spent: preparing to see the patient(eg.review tests), obtaining and/or reviewing separately otained hiistory, ordering medications,tests, procedures, referring, communicating with other health child care development specialist, indepentently interpreting results, counseling the patient and care coordination
--- NOTE | 2024-09-29 18:00 | NUR.NOTE ---
patent discharged with spouse to home, d/c education completed with thorough teaching on glucose monitoring, metformin and eliquis which are new meds for pt, and f/u plans and appointments. Pt's echo read is pending and results will be called to patient. Pt understands all teaching, denies pain at discharge, given evening dose of metoprolol before going. Patient understands which medications to take this evening at home. PIV removed, tele removed, walking to POV. Nursing Note:
== END 2024-09-29 17:37 | disposition home or self-care (01) | DRG 871 ==
LOC: ER 23:53 → EDHOLD 09-26 01:55 → MS 09-26 09:50
PROVIDERS: Hospitalist; Admitting Provider Family Medicine; Emergency Provider Student in an Organized Health Care Education/Training Program; Responsible Provider Family Medicine; Visit Provider Family Medicine
DX: A41.9 Sepsis, unspecified organism (principal); J18.9 Pneumonia, unspecified organism; J96.01 Acute respiratory failure with hypoxia; I48.19 Other persistent atrial fibrillation; E87.20 Acidosis, unspecified; Z68.41 Body mass index [BMI] 40.0-44.9, adult; R65.20 Severe sepsis without septic shock; I10 Essential (primary) hypertension; N28.1 Cyst of kidney, acquired; E11.65 Type 2 diabetes mellitus with hyperglycemia; I71.21 Aneurysm of the ascending aorta, without rupture; R44.1 Visual hallucinations; E66.01 Morbid (severe) obesity due to excess calories
CPT/HCPCS: 00123; 36415; 71250; 76770; 80048; 80053; 84145; 85027; 85652; 87040; 87449; 87637; 90656; 93005; 96365; 96366; 96367; 96375; 96376; 99291; J1650; 70450; 71045; 81003; 81015; 83036; 83605; 83735; 83880; 84443; 84484; 85025; 87070; 87086; 87205; 87581; 93010; 93306; 99223; 99232; 99233; 99239; J0153; J0696; J2020; J2543

== ENCOUNTER 2024-10-01 03:40 | Observation (INO) | payer MEDICARE, SELFPAY ==
[2024-10-01] VITALS (63 sets, daily range): BP systolic 157–226; BP diastolic 65–100; PULSE 63–107; RESP 16–40; TEMP 36.1–37.2; O2SAT 90–99
--- NOTE | 2024-10-01 03:30 | RT.EKG_ITS ---
APPROVED REPORT Exam: Resting ECG Reason for Exam: CP Patient Location: I HR:102 bpm ECG Measurements Heart Rate 102 AXIS MT 164 P 55 QRSd 109 QRS 73 QT 362 T 36 QTc 472 Conclusion Sinus tachycardia...rate> 99
[2024-10-01] MEDS: Aspirin 81 MG CHEW 324 MG CH (03:57)
[2024-10-01 04:00] LABS: Abs Immature Grans 0.06 10^3/uL (0.0-0.06); Absolute Lymphocyte Count 1.38 10^3/uL (1.2-3.4); Absolute Monocyte Count 0.41 10^3/uL (0.1-0.8); Basophils % 0.2 %; Eosinophils % 1.7 %; HCT 43.4 % (40.0-50.0); HGB 13.5 g/dL (13.5-17.5); Immature Grans % 0.5 %; Lymphocytes % 11.5 %; MCH 26.5 pg (27.0-33.0); MCHC 31.1 % (32.0-36.0); MCV 85 fL (80-95); MPV 8.6 fL (8.0-11.0); Monocytes % 3.4 %; Neutrophils % 82.7 %; Platelet Count 316 10^3/uL (130-400); RDW 15.9 % (11.8-14.1); RDW-SD 48.8 fL; WBC 12.01 10^3/uL (4.4-10.8)
--- NOTE | 2024-10-01 04:01 | ED.GENADUL_ITS ---
Discharge Plan Disposition Patient Disposition: Admit to [facility] Condition: Stable Discharge Details Chief Complaint: Chest Pain Clinical Impression: Chest pain, Hypertensive emergency Primary Care Provider: Sophie,Local ED Provider: Rosa Montoya Home Meds and New Rx's Prescriptions: No Action albuterol sulfate 90 mcg/actuation HFA aerosol inhaler 2 puff inhalation Q6H PRN (Reason: shortness of breath or wheezing) Qty: 8.5 0RF hydrochlorothiazide 25 mg tablet 25 mg PO DAILY candesartan 32 mg tablet 32 mg PO DAILY Eliquis 5 mg Tablet 5 mg PO BID Qty: 180 1RF metoprolol succinate 100 mg tablet extended release 24 hr 100 mg PO DAILY Qty: 90 0RF metformin 500 mg tablet extended release 24 hr 500 mg PO DAILY Qty: 30 1RF (DME) blood-glucose meter [FreeStyle [place] Lite] Kit See Rx Instructions .Route Qty: 1 0RF Rx Instructions: As directed (DME) lancets [FreeStyle Lancets] 28 gauge misc See Rx Instructions .Route Qty: 100 0RF Rx Instructions: As directed (DME) FreeStyle Test Strip See Rx Instructions .Route Qty: 100 11RF Rx Instructions: As directed HPI General Mode of arrival: ambulatory . Date/Time Provider Initiated Documentation: 10/01/24 03:41 . Limitations to Documentation: no limitations . Information obtained by: patient, family and old records reviewed . HPI Narrative: 64yo M with hx of T2DM, HTN, recent hospital admission for sepsis/pneumonia with new onset afib with RVR dced on 09/29/24 on eliquis and metoprolol, presenting for acute chest pain. Pain started 30 minutes prior to arrival, severe dull substernal pressure like a Chevy on my chest. Does not radiate. Associated shortness of breath. No back pain or numbness/tingling/weakness in upper extremities. Has never felt pain like this before. 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 [place] well yesterday prior to the onset of symptoms overnight. Related Data Home Medications ?Medication ?Instructions ?Recorded ?Confirmed candesartan 32 mg tablet 32 mg PO DAILY 09/14/24 10/01/24 hydrochlorothiazide 25 mg tablet 25 mg PO DAILY 09/14/24 10/01/24 albuterol sulfate 90 mcg/actuation 2 puff inhalation Q6H PRN 09/16/24 10/01/24 aerosol inhaler shortness of breath or wheezing #8.5 grams apixaban 5 mg tablet (Eliquis) 5 mg PO BID #180 tabs 09/29/24 10/01/24 blood sugar diagnostic (FreeStyle #100 ea 09/29/24 Test strips) blood-glucose meter (FreeStyle #1 ea 09/29/24 [place] Lite kit) lancets 28 gauge (FreeStyle #100 ea 09/29/24 Lancets) metformin 500 mg tablet,extended 500 mg PO DAILY #30 tabs 09/29/24 10/01/24 release 24 hr metoprolol succinate 100 mg 100 mg PO DAILY #90 tabs 09/29/24 10/01/24 tablet,extended release 24 hr Previous Rx's ?Medication ?Instructions ?Recorded albuterol sulfate 90 mcg/actuation 2 puff inhalation Q6H PRN 09/16/24 aerosol inhaler shortness of breath or wheezing #8.5 grams apixaban 5 mg tablet (Eliquis) 5 mg PO BID #180 tabs 09/29/24 blood sugar diagnostic (FreeStyle #100 ea 09/29/24 Test strips) blood-glucose meter (FreeStyle #1 ea 09/29/24 [place] Lite kit) lancets 28 gauge (FreeStyle #100 ea 09/29/24 Lancets) metformin 500 mg tablet,extended 500 mg PO DAILY #30 tabs 09/29/24 release 24 hr metoprolol succinate 100 mg 100 mg PO DAILY #90 tabs 09/29/24 tablet,extended release 24 hr Allergies Allergy/AdvReac Type Severity Reaction Status Date / Time acetaminophen (From Percocet) Allergy Severe Itching Verified 10/01/24 03:52 oxycodone (From Percocet) Allergy Severe Itching Verified 10/01/24 03:52 General Stated Complaint: Chest Pain CHARLES: 2 Review of Systems Narrative: see HPI Exam Narrative Exam Narrative: General: Alert, moderate distress Head: Normocephalic, atraumatic Neck: Trachea midline, ?Neck supple. ENT: ?MMM.? Cardiac: ?Tachycardiac, regular, no murmurs appreciated Resp: Tachypneic. CTAB. Abd: ?Soft, non-distended, nontender : ?No suprapubic tenderness. Extremities: ?No deformities.? No peripheral edema. Neurologic: GCS 15. ? Moves all extremities freely against gravity Course Vital Signs Vital signs: Vital Signs Temperature 36.9 C 10/01/24 03:43 Pulse 104 H 10/01/24 03:43 Respiratory Rate 36 H 10/01/24 03:43 Blood Pressure 226/99 H 10/01/24 03:43 Pulse Oximetry 93 10/01/24 03:43 Temperature 36.9 C 10/01/24 03:43 Temperature Source Tympanic 10/01/24 03:43 Pulse 104 H 10/01/24 03:43 Respiratory Rate 28 H 10/01/24 03:48 Respiratory Effort Incrsd Work of Breathing 10/01/24 03:48 Respiratory Depth Shallow 10/01/24 03:48 Respiratory Pattern Tachypnea 10/01/24 03:48 Blood Pressure 226/99 H 10/01/24 03:43 Blood Pressure Position Supine 10/01/24 03:43 Pulse Oximetry 93 10/01/24 03:43 Oxygen Delivery Method Room Air 10/01/24 03:43 Oxygen Flow Rate 0 10/01/24 03:43 Pain Level 7 10/01/24 03:48 Medical Decision Making 64yo M with hx of T2DM, HTN, recent hospital admission for sepsis/pneumonia with new onset afib with RVR dced on 09/29/24 on eliquis and metoprolol, presenting for acute chest pain onset 30 minutes prior to arrival, severe dull substernal pressure like a Chevy on my chest which is worse with inspiration. Hypertensive on arrival 220's/90's, O2 sat 90-93% on room air. Appears dyspneic. EKG on arrival sinus tachycardia rate 100's, appropriate intervals, no ST segment or T wave abnormalities to suggest occlusive [place]. Given 325 of aspirin and 4mg SL nitro; pain improved after nitro. Labs sent and patient taken emergently to CT; high level of concern for pulmonary embolism vs acute coronary syndromes vs hypertensive emergency. Less likely aortic dissection. Does not appear to be in sympathetic crashing acute pulmonary edema. -CT independently reviewed; no large saddle embolus or florid pulmonary edema on my view, radiology read with no pulmonary embolism. -Labs reviewed as below, CBC with mild leukocytosis to 12 (nonspecific) and no anemia, CMP with no actionable abnormalities, Mg normal, lipase not suggestive of pancreatitis, VBG reassuring, BNP not suggestive of heart failure initial troponin 14. UA + for protein suggestive of hypertensive crisis. -Bedside echo with extremely limited views; no gross RV dilation or large pericardial effusion On reassessment patient reports much improvement in chest pain after 2 doses of nitro; pain resolved, sensation of pressure persist but is improved. Will give 3rd dose; may need nitro gtt. Home dose metoprolol also given. One hour repeat troponin 12. BP 158/75 ~30% reduction from arrival; would not lower further at this time. On reassessment patient reports chest pressure had entirely resolved. [place] [facility] [place], with stable troponin in the setting of ischemic sounding chest pain with SBP ~220 favor hypertensive crisis over ACS/unstable angina. Patient not thought to require urgent ischemic eval, plavix load, heparin, etc. Plan to restart eliquis and continue to trend troponin and monitor blood pressure, if troponins stable would benefit from non- emergent stress test. Three hour troponin reassuring at 10. On reassessment patient remains chest pain free, BP 173/74. Overall most consistent with hypertensive emergency though ACS remains possible; warrants further observation/trend troponin/formal echo. Discussed with [facility] hospitalist Dr. Casey. Patient awaiting admission orders. Oncoming ED physician Tarik aware of patient. Imaging Data Radiologic Study: Imaging: CT Scan Radiologist's impression: IMPRESSION: 1. No pulmonary embolus is appreciated. 2. Multifocal bilateral ground-glass opacities. Consider infection, edema. Follow-up as clinically warranted. 3. Additional findings as above. Lab Data Lab results reviewed: Yes I reviewed the patient's lab results. Labs: Laboratory Tests Range/Units 10/01/24 10/01/24 03:46 04:30 WBC (4.4-10.8) 10^3/uL 12.01 H RBC (4.36-5.78) 10^6/uL 5.10 Hgb (13.5-17.5) g/dL 13.5 D Hct (40.0-50.0) % 43.4 MCV (80-95) fL 85 D MCH (27.0-33.0) pg 26.5 L MCHC (32.0-36.0) % 31.1 L RDW (11.8-14.1) % 15.9 H Plt Count (130-400) 10^3/uL 316 MPV (8.0-11.0) fL 8.6 Immature Gran % % 0.5 Neutrophils % % 82.7 Lymphocytes % % 11.5 Monocytes % % 3.4 Eosinophils % % 1.7 Basophils % % 0.2 Nucleated RBC % (0.0-0.3) % 0.0 Absolute Neutrophils (1.2-6.7) 10^3/uL 9.93 H Absolute Lymphocytes (1.2-3.4) 10^3/uL 1.38 Absolute Monocytes (0.1-0.8) 10^3/uL 0.41 Absolute Eosinophils (0.0-0.7) 10^3/uL 0.20 Absolute Basophils (0.0-0.2) 10^3/uL 0.02 APTT (20.6-30.2) sec 25.6 VBG pH (7.31-7.41) 7.37 VBG pCO2 (41-51) mmHg 49 VBG pO2 mmHg 29 VBG HCO3 (23-28) mmol/L 28 VBG Total CO2 (24-29) mmol/L 26 VBG O2 Saturation % 49 VBG Base Excess (-2-3) mmol/L 3 Sodium (136-145) mmol/L 140 Potassium (3.5-5.1) mmol/L 3.6 Chloride (98-107) mmol/L 103 Carbon Dioxide (21.0-32.0) mmol/L 29.6 Anion Gap (3-11) mmol/L 7.4 BUN (7-18) mg/dL 22 H Creatinine (0.70-1.30) mg/dL 1.2 Est GFR (CKD-EPI 2020) (mL/min/1.73m2) 68.38 Glucose (74-106) mg/dL 239 H Calcium (8.5-10.1) mg/dL 8.7 Magnesium mg/dL 1.9 Total Bilirubin (0.2-1.0) mg/dL 0.2 AST (15-37) U/L 16 ALT (16-63) U/L 18 Alkaline Phosphatase (46-116) U/L 134 H Troponin I (<or=76) ng/L 14 12 NT-Pro-B Natriuret Pep (<300) pg/mL 167 Total Protein (6.4-8.2) g/dL 8.6 H Albumin (3.4-5.0) g/dL 2.6 L Lipase (<78) U/L 55 Quality:SDOH Health Related Social Needs: No Data to Display Critical Care Time Critical Care Time Critical Care Time: Yes Total Critical Care Time: 43 Attestation: Due to a high probability of clinically significant, life threatening deterioration, the patient required my highest level of preparedness to intervene emergently and I personally spent this critical care time directly and personally managing the patient. This critical care time included obtaining a history; examining the patient; pulse oximetry; ordering and review of studies; arranging urgent treatment with development of a management plan; evaluation of patient's response to treatment; frequent reassessment; and, discussions with other providers. This critical care time was performed to assess and manage the high probability of imminent, life-threatening deterioration that could result in multi-organ failure. It was exclusive of separately billable procedures and treating other patients PFSH All Active Problems (Updated 10/01/24 @ 06:29 by Rosa Montoya MD) Hypertensive emergency (Acute) Chest pain (Acute) Type 2 diabetes mellitus (Acute) Palpitations (Acute) Aortic aneurysm (Chronic) Renal cyst (Acute) Hallucination (Acute) Respiratory failure (Acute) Sepsis (Acute) Atrial fibrillation with rapid ventricular response (Acute) HTN (hypertension) (Chronic) Community acquired pneumonia (Acute) Social History Smoking/Tobacco Use Status: Never Smoking risk assessment performed?: Yes Alcohol Intake: never Substance use type: marijuana Housing: house Do you feel safe at home: Yes Do you feel safe in your relationship?: Yes
[2024-10-01 04:02] LABS: Absolute Basophil Count 0.02 10^3/uL (0.0-0.2); Absolute Neutrophil Count 9.93 10^3/uL (1.2-6.7)
[2024-10-01] MEDS: nitroGLYcerin 0.4 MG TAB ×4 (04:05→08:13)
[2024-10-01 04:14] LABS: PTT Activated 25.6 sec (20.6-30.2)
[2024-10-01 04:22] LABS: ALT 18 U/L (16-63); AST 16 U/L (15-37); Albumin 2.6 g/dL (3.4-5.0); Alkaline Phosphatase 134 U/L (46-116); Anion Gap 7.4 mmol/L (3-11); BUN 22 mg/dL (7-18); Bilirubin, Total 0.2 mg/dL (0.2-1.0); CO2 29.6 mmol/L (21.0-32.0); CREATININE 1.2 mg/dL (0.70-1.30); Calcium 8.7 mg/dL (8.5-10.1); Chloride 103 mmol/L (98-107); Estimated GFR 68.38 (mL/min/1.73m2); Glucose 239 mg/dL (74-106); Magnesium 1.9 mg/dL; Potassium 3.6 mmol/L (3.5-5.1); Sodium 140 mmol/L (136-145); Total Protein 8.6 g/dL (6.4-8.2); Troponin I 14 ng/L (<or=76)
[2024-10-01] MEDS: Omnipaque 350 MG/ML 100 ML BTL 90 ML IJ (04:26)
[2024-10-01] MEDS: Normal Saline - Diluent 50 ML VIAL IJ (04:27)
--- NOTE | 2024-10-01 04:27 | DI.CT_ITS ---
Exam(s) CT CHEST PE CTA EXAM: CT CHEST PE CTA CLINICAL HISTORY: Chest pain concern for PE. TECHNIQUE: Imaging Protocol: CT angiography of the chest was performed using pulmonary embolus molly col. Multi planar reconstructions were performed. CONTRAST MATERIAL: Intravenous: Omnipaque 350 Contrast volume: 90 cc COMPARISON: CT CT CHEST WO from 09/26/2024 FINDINGS: CHEST: PULMONARY ARTERIES: Less than optimal bolus timing. There are no obvious distinct intraluminal filli ng defects to suggest acute pulmonary emboli. LUNGS: Multifocal ground-glass infiltrates in both lung thompson again noted, slightly further increase d from the recent CT scan of 09/26/2024, 5 days ago. No new focal findings in the trachea and mainst em bronchi. No obvious bronchiectasis.. There are no pleural effusions. MEDIASTINUM: Small lymph nodes are noted in both hilar regions as well as in the mediastinal fat incl uding also subcarinal region. Small shotty lymph nodes are noted in both axillary regions. CARDIAC: Heart size is upper normal. There is no pericardial effusion. The diameter of the ascendin g thoracic aorta is enlarged, measuring 4.5 cm. There is no evidence of dissection. The diameter of the descending thoracic aorta is upper normal. No evidence of dissection or perforating aortic ulce r. There is no significant shift of the interventricular septum. PARTIALLY VISUALIZED UPPERMOST ABDOMEN: Bilateral gynecomastia is noted. Also hepatomegaly. Right a drenal gland unremarkable. There is mild thickening and nodularity in the left adrenal gland. OSSEOUS: No significant osseous lesions.. IMPRESSION: 1. No evidence of acute pulmonary emboli. No evidence of pulmonary infarction. 2. Multifocal bilateral ground-glass infiltrates, slightly increased from prior CT scan of 5 days ago . No associated pleural effusions. 3. Mildly enlarged lymph nodes are noted in both axillary regions as well as in the mediastinal fat a nd subcarinal regions. Most probably related to the lung findings. Moderate gynecomastia noted bilaterally. RADIATION DOSE DELIVERED: 327.02mGy.cm Total DLP DATA REPOSITORY: All CT scans at this facility are submitted to the National Radiology Data Registry (NRDR) Dose Index Registry (DIR) with the [employer] ([employer]). RADIATION OPTIMIZATION: All CT scans at this facility use at least one of these dose optimization te chniques: automated exposure control; mA and/or kV adjustment per patient size (includes targeted exa ms where dose is matched to clinical indication); or iterative reconstruction.
[2024-10-01 04:32] LABS: BE (Venous) 3 mmol/L (-2-3); HCO3 (Venous) 28 mmol/L (23-28); O2 Sat (Venous) 49 %; TCO2 (Venous) 26 mmol/L (24-29); pCO2 (Venous) 49 mmHg (41-51); pH (Venous) 7.37 (7.31-7.41); pO2 (Venous) 29 mmHg
--- NOTE | 2024-10-01 04:37 | DI.VRAD_ITS ---
PROCEDURE INFORMATION: Exam: CTA Chest With Contrast Exam date and time: 10/01/2024 4:11 AM Age: 64 years old Clinical indication: Chest pressure; Chest pain concern for pe TECHNIQUE: Imaging protocol: Computed tomographic angiography of the chest with contrast. Exam focused on the arteries. 3D rendering (Not supervised by radiologist): MIP and/or 3D reconstructed images were created by the technologist. Radiation optimization: All CT scans at this facility use at least one of these dose optimization techniques: automated exposure control; mA and/or kV adjustment per patient size (includes targeted exams where dose is matched to clinical indication); or iterative reconstruction. Contrast material: [id number]; Contrast volume: 90 ml; Contrast route: INTRAVENOUS (IV); COMPARISON: CT CHEST WO 09/26/2024 8:15 AM FINDINGS: Limitations: Mild motion artifact. Pulmonary arteries: No pulmonary embolus is appreciated. Aorta: Atherosclerotic changes in the aorta and its branches. Ascending thoracic aorta ectatic to 4.4 cm. Lungs: Multifocal ground-glass opacities in both lungs. Pleural spaces: No pleural effusion. Heart: No pericardial effusion. Coronary arteries: Coronary artery calcifications. Lymph nodes: Mediastinal and bilateral hilar lymphadenopathy. Liver: Hepatomegaly, incompletely imaged. Adrenal glands: Bilateral nodular adrenal thickening. Kidneys: Exophytic left renal lesion, likely cyst but incompletely imaged. Bones/joints: No acute pertinent abnormality seen. Soft tissues: Gynecomastia. IMPRESSION: 1. No pulmonary embolus is appreciated. 2. Multifocal bilateral ground-glass opacities. Consider infection, edema. Follow-up as clinically warranted. 3. Additional findings as above. Dictated and Authenticated by: Cristiana Tinajero MD. Orderin Lindsay Lee MD
[2024-10-01 04:49] LABS: Lipase 55 U/L (<78); NT-proBNP 167 pg/mL (<300)
[2024-10-01] MEDS: Metoprolol 50 MG TAB 100 MG PO ×2 (04:50→19:54)
[2024-10-01 04:52] LABS: Troponin I 12 ng/L (<or=76)
[2024-10-01] MEDS: Apixaban 5 MG TAB PO ×2 (05:22→19:54)
[2024-10-01 05:56] LABS: Bilirubin Negative (Negative); Blood Trace-intact (Negative); Clarity Clear (Clear); Glucose Negative (Negative); Ketones Negative (Negative); Leukocyte Esterase Negative (Negative); Nitrite Negative (Negative); Specific Gravity 1.015 (1.005-1.025); Urobilinogen 0.2 mg/dL (Up to 0.2)
[2024-10-01 06:02] LABS: Bacteria Negative HPF (Negative); C & S Indicated? No; Casts 0-2 Coarse Granular LPF (Negative); Crystals Negative HPF (Negative); Epithelial Cells Negative HPF (Negative); RBC 0-2 HPF (0-2); WBC Negative HPF (0-5)
[2024-10-01 06:03] LABS: Mucus Trace (Negative)
[2024-10-01 07:06] LABS: Troponin I 10 ng/L (<or=76)
--- NOTE | 2024-10-01 07:30 | RT.EKG_ITS ---
APPROVED REPORT Exam: Resting ECG Reason for Exam: CP Patient Location: E HR:66 bpm ECG Measurements Heart Rate 66 AXIS PA 144 P 14 QRSd 109 QRS 76 QT 426 T 44 QTc 445 Conclusion Sinus rhythm...normal P axis, V-rate 60- 99 No STEMI
--- NOTE | 2024-10-01 08:00 | RT.EKG_ITS ---
APPROVED REPORT Exam: Resting ECG Reason for Exam: cp Patient Location: E HR:70 bpm ECG Measurements Heart Rate 70 AXIS AZ 144 P 1 QRSd 104 QRS 76 QT 413 T 48 QTc 445 Conclusion Sinus rhythm...normal P axis, V-rate 60- 99 No STEMI
[2024-10-01] MEDS: hydroCHLOROthiazide 25 MG TAB PO (09:03)
[2024-10-01] MEDS: POTASSIUM CHLORIDE/D5-0.45NACL 1,000 ML 100 MEQ IV ×2 (09:50→19:54)
--- NOTE | 2024-10-01 10:45 | RT.EKG_ITS ---
APPROVED REPORT Exam: Resting ECG Reason for Exam: chest pain Patient Location: I HR:71 bpm ECG Measurements Heart Rate 71 AXIS VA 150 P 14 QRSd 103 QRS 74 QT 414 T 39 QTc 450 Conclusion Sinus rhythm...normal P axis, V-rate 50- 99 Normal Electrocardiogram
--- NOTE | 2024-10-01 11:02 | HPE_ITS ---
Date of service: 10/01/24 Time of Service: 11:02 Assessment and Plan Assessment and plan (1) Sepsis: Status: Acute Assessment and plan: Sepsis d/t wbc 12.01 with tachypnea at RR 24 and source most likley respiratory as below with worsening findings of bilateral multi-focal ground glass infiltrates (2) Ground glass opacity present on imaging of lung: Status: Acute Assessment and plan: Worsening findings of bilateral multi-focal ground glass infiltrates from CT completed on 09/26 Recently treated for pneumonia sent home on antibiotics (not certain if filled since cardiac rx not filled) Productive cough with green- greyish sputum and remote history of 3-pack day smoking - never evaluated for COPD Will treat will Levaquin and prednisone burst as this might be lung inflammation/pneumonitis VS infection, VS COPD exacerbation Plan to D/C on oral levaquin and prednisone (3) Chest pain: Status: Acute Assessment and plan: Recurring visit s/p discharge s/p admission with atrial-fibrillation with RVR- did not continue opt metoprolol and Eliquis Chest pain like pressure retro-sternal w/o radiation - aggravating factor deep breathing, productive cough Serial Troponins negative - EKG negative NPI ordered- cardiology recommendation for outpatient as pt has intermittent chest pressure episode resolving later with nitro PE negative as per CT Ascending Aorta dilation 4.5cm - no dissection CT findings of bilateral glass ground infiltrates progressing from imaging don on 09/26 Similar presentation on 09/26 with new onset- atrial fibrillation with RVR and pneumonia (4) Type 2 diabetes mellitus: Status: Acute Assessment and plan: A1C 8.6 with f/u PCP Fingerstick AC and HS SSI coverage (5) HTN (hypertension): Status: Chronic Assessment and plan: continue HCTZ at this time (6) Atrial fibrillation with rapid ventricular response: Status: Acute Assessment and plan: In on 09/26 for Afib w RVR and d/c on metoprolol and Eliquis- did not take pahrmacy did not have the meds Continue metoprolol and Eliquis (7) Persistent atrial fibrillation with RVR: Status: Resolved Assessment and plan: -likely exacerbated by severe sepsis as noted above -Had been on diltiazem drip some drip while holding in the emergency department which has since been discontinued -Continue p.o. metoprolol -Continue starting Eliquis as patient is not on anticoagulation as been in A-fib for unknown amount of time 09/28/24 Pt is now on eliquis. HR is 96 and pt is on metoprolol 25mg q6 (8) Aortic aneurysm: Status: Chronic Assessment and plan: Ascending Aorta measured at 4.5cm. Patient will need surveillance and optimization in the outpatient setting. Per UTD guidelines the recommendation if for follow up in 6-12 months 09/28/24 The patient Will need serial surveillance Discussed with Dr. Casey History of Present Illness History of Present Illness Chief Complaint: Chest Pain Narrative: This 64 years old male patient with PMHx of T2DM, HTN, recent hospital admission for sepsis/pneumonia with new onset afib with RVR d/jaren on 09/29/24 on eliquis and metoprolol, presenting for evaluation of mid chest retro-sternal chest pain starting less than 35 minutes prior to presentation; described as heavy weight sitting on chest w/o radiation worsened by coughing and deep breathing; also to described restrictive feeling when taking deep breaths. The patient reported sensation relieved with nitro SL. The patient reported shortness of breath, cough productive of greenish -monteiro sputum. Denied, fever, night sweats, back pain or numbness/tingling/weakness in upper extremities, nausea, vomiting. Has never felt pain like this before. Was not able to sheepskin pickler his eliquis or metoprolol at the pharmacy on d/c but felt well yesterday prior to the time of onset of symptoms overnight. The Workup in the ED showed negative troponins, EKG was normal s/p [facility] [place] consult with recommendation for MPI. WBC was 12.01 with left shift, Cr near baseline but BUN at 22 from baseline 11-14. VGB was reassuring. CT showed Multifocal ground-glass infiltrates in both lung thompson again noted, slightly further increased from the recent CT scan of 09/26/2024; no dissection to dilated ascending aorta measuring 4.5 cm. The patient was admitted for further evaulation of chest pain and worsening CT findings. The patient continued to have intermittent chest pain this AM, resolved by nitro SL X1, EKG still negative for occlusion or ischemia an and negative troponin. No further chest pain reported in PM. Review of Systems All systems reviewed & are unremarkable except as noted in HPI and below PFSH All Active Problems (Updated 10/01/24 @ 12:39 by Simona Walsh APRN) Ground glass opacity present on imaging of lung (Acute) Hypertensive emergency (Acute) Chest pain (Acute) Type 2 diabetes mellitus (Acute) Palpitations (Acute) Aortic aneurysm (Chronic) Renal cyst (Acute) Hallucination (Acute) Respiratory failure (Acute) Sepsis (Acute) Atrial fibrillation with rapid ventricular response (Acute) HTN (hypertension) (Chronic) Community acquired pneumonia (Acute) Social History Smoking/Tobacco Use Status: Never Smoking risk assessment performed?: Yes Alcohol Intake: never Substance use type: marijuana Housing: house Do you feel safe at home: Yes Do you feel safe in your relationship?: Yes Meds Allergies and Home Medications Allergies Allergy/AdvReac Type Severity Reaction Status Date / Time acetaminophen (From Percocet) Allergy Severe Itching Verified 10/01/24 03:52 oxycodone (From Percocet) Allergy Severe Itching Verified 10/01/24 03:52 Home Medications ?Medication ?Instructions ?Recorded ?Confirmed ?Type candesartan 32 mg tablet 32 mg PO DAILY 09/14/24 10/01/24 History hydrochlorothiazide 25 mg tablet 25 mg PO DAILY 09/14/24 10/01/24 History albuterol sulfate 90 mcg/actuation 2 puff inhalation Q6H PRN 09/16/24 10/01/24 Rx aerosol inhaler shortness of breath or wheezing #8.5 grams apixaban 5 mg tablet (Eliquis) 5 mg PO BID #180 tabs 09/29/24 10/01/24 Rx blood sugar diagnostic (FreeStyle #100 ea 09/29/24 10/01/24 Rx Test strips) blood-glucose meter (FreeStyle #1 ea 09/29/24 10/01/24 Rx [place] Lite kit) lancets 28 gauge (FreeStyle #100 ea 09/29/24 10/01/24 Rx Lancets) metformin 500 mg tablet,extended 500 mg PO DAILY #30 tabs 09/29/24 10/01/24 Rx release 24 hr metoprolol succinate 100 mg 100 mg PO DAILY #90 tabs 09/29/24 10/01/24 Rx tablet,extended release 24 hr Exam Narrative Exam Narrative: Constitutional The patient lying in bed with minimal discomfort of localized chest pressure HENMT: . Facial structures with normal appearance Eyes: Well aligned, intact ROM, non-icteric sclera Neck: Normal ROM, no meningeal signs Neuro:alert and oriented to self, person, place, time and situation. No neurological focal deficit Chest:Chest is symmetrical and normal appearance Resp: Shallow respiratory pattern, scattered ronchi to upper lung and diminished 1/2 up bilaterally Cardio: regular rhythm, S1, S2, no murmur, capillary refill<3 sec., bilateral radial and dorsalis pedis pulses are positive, palpable GI: Abdomen is large, not distended, soft and non tender, bowel sounds are present Integumentary: No skin lesions or rash to exposed skin Extremities: strength 5/5 to bilateral lower and upper extremities Psych: RASS 0, congruent mood and normal affect. Results Labs 10/01/24 03:46 10/01/24 03:46 Labs: Laboratory Results - last 24 hr 10/01/24 10/01/24 10/01/24 03:46 04:30 05:25 WBC 12.01 H RBC 5.10 Hgb 13.5 D Hct 43.4 MCV 85 D MCH 26.5 L MCHC 31.1 L RDW 15.9 H Plt Count 316 MPV 8.6 Immature Gran % 0.5 Neutrophils % 82.7 Lymphocytes % 11.5 Monocytes % 3.4 Eosinophils % 1.7 Basophils % 0.2 Nucleated RBC % 0.0 Absolute Neutrophils 9.93 H Absolute Lymphocytes 1.38 Absolute Monocytes 0.41 Absolute Eosinophils 0.20 Absolute Basophils 0.02 APTT 25.6 VBG pH 7.37 VBG pCO2 49 VBG pO2 29 VBG HCO3 28 VBG Total CO2 26 VBG O2 Saturation 49 VBG Base Excess 3 Sodium 140 Potassium 3.6 Chloride 103 Carbon Dioxide 29.6 Anion Gap 7.4 BUN 22 H Creatinine 1.2 Est GFR (CKD-EPI 2020) 68.38 Glucose 239 H Calcium 8.7 Magnesium 1.9 Total Bilirubin 0.2 AST 16 ALT 18 Alkaline Phosphatase 134 H Troponin I 14 12 NT-Pro-B Natriuret Pep 167 Total Protein 8.6 H Albumin 2.6 L Lipase 55 Urine Color Yellow Urine Clarity Clear Urine pH 5.0 Ur Specific [place] 1.015 Urine Protein >=300 H Urine Ketones Negative Urine Blood Trace-intact H Urine Nitrite Negative Urine Bilirubin Negative Urine Urobilinogen 0.2 Ur Leukocyte Esterase Negative Urine RBC 0-2 Urine WBC Negative Ur Epithelial Cells Negative Urine Crystals Negative Urine Bacteria Negative Urine Casts 0-2 Coarse Granular Urine Mucus Trace Ur Culture Indicated? No Urine Glucose Negative 10/01/24 06:44 WBC RBC Hgb Hct MCV MCH MCHC RDW Plt Count MPV Immature Gran % Neutrophils % Lymphocytes % Monocytes % Eosinophils % Basophils % Nucleated RBC % Absolute Neutrophils Absolute Lymphocytes Absolute Monocytes Absolute Eosinophils Absolute Basophils APTT VBG pH VBG pCO2 VBG pO2 VBG HCO3 VBG Total CO2 VBG O2 Saturation VBG Base Excess Sodium Potassium Chloride Carbon Dioxide Anion Gap BUN Creatinine Est GFR (CKD-EPI 2020) Glucose Calcium Magnesium Total Bilirubin AST ALT Alkaline Phosphatase Troponin I 10 NT-Pro-B Natriuret Pep Total Protein Albumin Lipase Urine Color Urine Clarity Urine pH Ur Specific [place] Urine Protein Urine Ketones Urine Blood Urine Nitrite Urine Bilirubin Urine Urobilinogen Ur Leukocyte Esterase Urine RBC Urine WBC Ur Epithelial Cells Urine Crystals Urine Bacteria Urine Casts Urine Mucus Ur Culture Indicated? Urine Glucose Last Vital Signs Temp 37.2 C 10/01/24 10:38 Pulse 73 10/01/24 10:38 Resp 20 10/01/24 10:38 BP 174/85 H 10/01/24 10:38 Pulse Ox 94 10/01/24 10:38 Time Spent Time spent with Patient: >75 minutes Time was spent: preparing to see the patient(eg.review tests), obtaining and/or reviewing separately otained hiistory, ordering medications,tests, procedures, referring, communicating with other health administrator health care facility, indepentently interpreting results, counseling the patient and care coordination
[2024-10-01] MEDS: Insulin Aspart 300 UNITS/3 ML PEN SC ×2 (11:46→17:13)
[2024-10-01] MEDS: guaiFENesin 600 MG TABCR PO ×2 (11:50→19:54)
[2024-10-01 11:59] LABS: Troponin I 12 ng/L (<or=76)
--- NOTE | 2024-10-01 12:35 | W.PC.ACHO ---
Registration Status: Primary Language: Preferred Language: ED Information & Data Chief Complaint Chest Pain 10/01/24 04:01 Triage Note arrives via POV from home, c 10/01/24 03:43 /o SOB and CP that started about 30 mins [employer] [employer]. Denies N/ V. Recent diagnosis of Afib with admission here last week and was just discharged yesterday. also had pneumonia recently. Feels like there is a truck on his chest. Most Recent Vital Signs Temperature 36.8 C 10/01/24 11:25 Temperature Source Temporal Artery Scan 10/01/24 11:25 Pulse 72 10/01/24 11:25 Pulse Rhythm Regular 10/01/24 05:51 Pulse Strength Normal 10/01/24 05:51 Pulse 75 10/01/24 08:20 Respiratory Rate 22 10/01/24 11:25 Respiratory Effort Normal, Non-Labored 10/01/24 05:51 Respiratory Depth Normal 10/01/24 05:51 Respiratory Pattern Normal 10/01/24 05:51 Blood Pressure 169/77 H 10/01/24 11:25 Blood Pressure Mean 120 10/01/24 08:15 Blood Pressure Position Supine 10/01/24 05:51 Pulse Oximetry 93 10/01/24 11:25 Oxygen Delivery Method Room Air 10/01/24 11:25 Oxygen Flow Rate 0 10/01/24 11:25 Pain Level 1 10/01/24 11:25 Comment pt states feels like pressure or someone is sititng on his chest 10/01/24 10:38 Comment post NGT SL 10/01/24 08:15 Allergies acetaminophen (From Percocet) Allergy (Severe, Verified 10/01/24 03:52) Itching oxycodone (From Percocet) Allergy (Severe, Verified 10/01/24 03:52) Itching Precautions Isolation Standard precaution 10/01/24 03:51 Active Medications Generic Name Dose Route Start Last Admin Trade Name Freq PRN Reason Stop Dose Admin Guaifenesin 600 mg 10/01/24 11:00 10/01/24 11:50 Guaifenesin 600 Mg Tabcr PO 600 mg BID JAMAL Administration Hydrochlorothiazide 25 mg 10/01/24 08:30 10/01/24 09:03 Hydrochlorothiazide 25 Mg Tab PO 25 mg DAILY JAMAL Administration Potassium Chloride/Sodium Chloride 1,000 mls @ 100 mls/hr 10/01/24 07:30 10/01/24 09:50 Kcl 20meq/D5-0.45% Nacl IV 100 mls/hr INFUSION JAMAL Administration Insulin Aspart 0 units 10/01/24 08:00 10/01/24 11:46 Insulin Aspart 300 Units/3 Ml Pen SC 1 unit 0800,1200,1700 JAMAL Administration Protocol Pt's Own Candesartan 1 each 10/01/24 08:30 10/01/24 09:21 32 Mg Tablet PO Not Given DAILY JAMAL IV IV Catheter Type [Right Peripheral IV Antecubital] IV Catheter Type [Left Peripheral IV Antecubital] IV Catheter Gauge [Right 18 Antecubital] IV Catheter Gauge [Left 18 Antecubital] Diet Orders Category Date Time Status Nothing Per Oral [DIET] Nutrition 10/01/24 Breakfast Active Diagnostics 10/01/24 10/01/24 10/01/24 Range/Units 11:10 06:44 05:25 WBC (4.4-10.8) 10^3/uL RBC (4.36-5.78) 10^6/uL Hgb (13.5-17.5) g/dL Hct (40.0-50.0) % MCV (80-95) fL MCH (27.0-33.0) pg MCHC (32.0-36.0) % RDW (11.8-14.1) % Plt Count (130-400) 10^3/uL MPV (8.0-11.0) fL Immature Gran % % Neutrophils % % Lymphocytes % % Monocytes % % Eosinophils % % Basophils % % Nucleated RBC % (0.0-0.3) % Absolute Neutrophils (1.2-6.7) 10^3/uL Absolute Lymphocytes (1.2-3.4) 10^3/uL Absolute Monocytes (0.1-0.8) 10^3/uL Absolute Eosinophils (0.0-0.7) 10^3/uL Absolute Basophils (0.0-0.2) 10^3/uL APTT (20.6-30.2) sec VBG pH (7.31-7.41) VBG pCO2 (41-51) mmHg VBG pO2 mmHg VBG HCO3 (23-28) mmol/L VBG Total CO2 (24-29) mmol/L VBG O2 Saturation % VBG Base Excess (-2-3) mmol/L Sodium (136-145) mmol/L Potassium (3.5-5.1) mmol/L Chloride (98-107) mmol/L Carbon Dioxide (21.0-32.0) mmol/L Anion Gap (3-11) mmol/L BUN (7-18) mg/dL Creatinine (0.70-1.30) mg/dL Est GFR (CKD-EPI 2020) (mL/min/1.73m2) Glucose (74-106) mg/dL Calcium (8.5-10.1) mg/dL Magnesium mg/dL Total Bilirubin (0.2-1.0) mg/dL AST (15-37) U/L ALT (16-63) U/L Alkaline Phosphatase (46-116) U/L Troponin I 12 10 (<or=76) ng/L NT-Pro-B Natriuret Pep (<300) pg/mL Total Protein (6.4-8.2) g/dL Albumin (3.4-5.0) g/dL Lipase (<78) U/L Urine Color Yellow (Yellow) Urine Clarity Clear (Clear) Urine pH 5.0 (5-8) Ur Specific [place] 1.015 (1.005-1.025) Urine Protein >=300 H (Neg-Trace) mg/dL Urine Ketones Negative (Negative) mg/dL Urine Blood Trace-intact H (Negative) Urine Nitrite Negative (Negative) Urine Bilirubin Negative (Negative) Urine Urobilinogen 0.2 (Up to 0.2) mg/dL Ur Leukocyte Esterase Negative (Negative) Urine RBC 0-2 (0-2) HPF Urine WBC Negative (0-5) HPF Ur Epithelial Cells Negative (Negative) HPF Urine Crystals Negative (Negative) HPF Urine Bacteria Negative (Negative) HPF Urine Casts 0-2 Coarse Granular (Negative) LPF Urine Mucus Trace (Negative) Ur Culture Indicated? No Urine Glucose Negative (Negative) mg/dL 10/01/24 10/01/24 Range/Units 04:30 03:46 WBC 12.01 H (4.4-10.8) 10^3/uL RBC 5.10 (4.36-5.78) 10^6/uL Hgb 13.5 D (13.5-17.5) g/dL Hct 43.4 (40.0-50.0) % MCV 85 D (80-95) fL MCH 26.5 L (27.0-33.0) pg MCHC 31.1 L (32.0-36.0) % RDW 15.9 H (11.8-14.1) % Plt Count 316 (130-400) 10^3/uL MPV 8.6 (8.0-11.0) fL Immature Gran % 0.5 % Neutrophils % 82.7 % Lymphocytes % 11.5 % Monocytes % 3.4 % Eosinophils % 1.7 % Basophils % 0.2 % Nucleated RBC % 0.0 (0.0-0.3) % Absolute Neutrophils 9.93 H (1.2-6.7) 10^3/uL Absolute Lymphocytes 1.38 (1.2-3.4) 10^3/uL Absolute Monocytes 0.41 (0.1-0.8) 10^3/uL Absolute Eosinophils 0.20 (0.0-0.7) 10^3/uL Absolute Basophils 0.02 (0.0-0.2) 10^3/uL APTT 25.6 (20.6-30.2) sec VBG pH 7.37 (7.31-7.41) VBG pCO2 49 (41-51) mmHg VBG pO2 29 mmHg VBG HCO3 28 (23-28) mmol/L VBG Total CO2 26 (24-29) mmol/L VBG O2 Saturation 49 % VBG Base Excess 3 (-2-3) mmol/L Sodium 140 (136-145) mmol/L Potassium 3.6 (3.5-5.1) mmol/L Chloride 103 (98-107) mmol/L Carbon Dioxide 29.6 (21.0-32.0) mmol/L Anion Gap 7.4 (3-11) mmol/L BUN 22 H (7-18) mg/dL Creatinine 1.2 (0.70-1.30) mg/dL Est GFR (CKD-EPI 2020) 68.38 (mL/min/1.73m2) Glucose 239 H (74-106) mg/dL Calcium 8.7 (8.5-10.1) mg/dL Magnesium 1.9 mg/dL Total Bilirubin 0.2 (0.2-1.0) mg/dL AST 16 (15-37) U/L ALT 18 (16-63) U/L Alkaline Phosphatase 134 H (46-116) U/L Troponin I 12 14 (<or=76) ng/L NT-Pro-B Natriuret Pep 167 (<300) pg/mL Total Protein 8.6 H (6.4-8.2) g/dL Albumin 2.6 L (3.4-5.0) g/dL Lipase 55 (<78) U/L Urine Color (Yellow) Urine Clarity (Clear) Urine pH (5-8) Ur Specific [place] (1.005-1.025) Urine Protein (Neg-Trace) mg/dL Urine Ketones (Negative) mg/dL Urine Blood (Negative) Urine Nitrite (Negative) Urine Bilirubin (Negative) Urine Urobilinogen (Up to 0.2) mg/dL Ur Leukocyte Esterase (Negative) Urine RBC (0-2) HPF Urine WBC (0-5) HPF Ur Epithelial Cells (Negative) HPF Urine Crystals (Negative) HPF Urine Bacteria (Negative) HPF Urine Casts (Negative) LPF Urine Mucus (Negative) Ur Culture Indicated? Urine Glucose (Negative) mg/dL [id number] Documentation Fingerstick Glucose Start: 10/01/24 07:36 Freq: .Q6H Status: Active Protocol: Activity Type Activity Date Activity User E-sign Co-sign Detail Recorded Client Recorded Date Recorded By Document 10/01/24 11:44 BKG DAEMON(3) [id number] 10/01/24 11:54 BKG DAEMON(4) Intake and Output - 24 Hour Total 10/01/24 03:40 thru 10/01/24 03:43 Weight 146.9 kg Falls Risk Assessment History of Falls No History 10/01/24 03:51 Contributing Factors No Factors 10/01/24 03:51 Ambulatory Aids Independent 10/01/24 03:51 Tubes/Lines W/no contributing factors 10/01/24 03:51 Gait Evaluation No gait disturbance 10/01/24 03:51 Fall Total Score 10 10/01/24 03:51 Level of Risk Standard/Low Risk 10/01/24 03:51 Problems (Last Reviewed 09/16/24 @ 12:13 by CAMMIE Montalvo) Chest pain (Acute) Type 2 diabetes mellitus (Acute) Aortic aneurysm (Chronic) Atrial fibrillation with rapid ventricular response (Acute) HTN (hypertension) (Chronic) Community acquired pneumonia (Acute) v v v v v v v v v Sending and/or Receiving Nurses: Please use comment section below to note any information pertinent to the patient hand-off not included above. Information / Comments: Report received from: Mary Burnett RN. All of my questions were answered.
--- NOTE | 2024-10-01 13:37 | PHA.REVIEW2 ---
Pharmacy Admission Review Admission Clinical Review Admission Pharmacy Review: Ground glass opacity present on imaging of lung (Acute) Chest pain (Acute) Type 2 diabetes mellitus (Acute) Atrial fibrillation with rapid ventricular response (Acute) Community acquired pneumonia (Acute) acetaminophen (From Percocet) Allergy (Severe, Verified 10/01/24 03:52) Itching oxycodone (From Percocet) Allergy (Severe, Verified 10/01/24 03:52) Itching Resuscitation Status Full Code Height 6 ft Weight 146.9 kg Pharmacy Admission Review Renal Dosing Renal Dosing: BUN 22 mg/dL (7-18) H 10/01/24 03:46 Creatinine 1.2 mg/dL (0.70-1.30) 10/01/24 03:46 Medications needing adjustments: Reviewed (CrCl 95 mL/min) List of meds needing interventions: Current medications are okay Anticoagulation Anticoagulation: Hgb 13.5 g/dL (13.5-17.5) D 10/01/24 03:46 Hct 43.4 % (40.0-50.0) 10/01/24 03:46 Plt Count 316 10^3/uL (130-400) 10/01/24 03:46 Creatinine 1.2 mg/dL (0.70-1.30) 10/01/24 03:46 DVT Prophylaxis: Reviewed Medications: Apixaban (5mg BID) Relevant Labs Relevant Labs: Sodium 140 mmol/L (136-145) 10/01/24 03:46 Potassium 3.6 mmol/L (3.5-5.1) 10/01/24 03:46 Chloride 103 mmol/L (98-107) 10/01/24 03:46 Magnesium 1.9 mg/dL 10/01/24 03:46 Electrolytes, C-Reactive P, ESR: Reviewed DM Control DM Control: Glucose 239 mg/dL (74-106) H 10/01/24 03:46 Finger Stick Blood Glucose 175 1146 Finger Stick Blood Glucose 175 1144 Finger Stick Blood Glucose 175 1144 Finger Stick Blood Glucose 186 0901 Finger Stick Blood Glucose 186 0901 DM Control: Reviewed Insulin Dosing, Diabetic Medication: Has order for SS insulin Cardiac Review Cardiac Review: Troponin I 12 ng/L (<or=76) 10/01/24 11:10 NT-Pro-B Natriuret Pep 167 pg/mL (<300) 10/01/24 03:46 Blood Pressure [Right Arm] 158/77 Blood Pressure [Right Arm] 177/76 Blood Pressure 174/85 1241 Blood Pressure 169/77 1125 Blood Pressure 174/85 1038 Blood Pressure 189/80 0815 Blood Pressure 188/79 0802 Blood Pressure 193/100 0747 Blood Pressure 183/77 0732 Blood Pressure 185/94 0716 Blood Pressure 157/70 0701 Blood Pressure 165/75 0646 Blood Pressure 173/74 0631 BP, HR, EF%: Reviewed (HR WNL) List meds needing interventions: Has orders for HCTZ 25mg daily and metoprolol XL 100mg daily. Patient was given 100mg of metoprolol tartrate in ED at 0450 this morning. Provider added order for a one time dose of 100mg metoprolol tartrate to be given tonight. Order for metoprolol XL is set to start tomorrow morning. QTc Review QTc: Reviewed (450 from 10/01/24) IV to PO Switch IV Medications: Reviewed (levofloxacin) Home Meds Home Med List reviewed: Intervened Relevent Home Meds Not ordered & why?: metformin (has order for SS insulin) Changed order for candesartan to patients own order. Called nurse to see if this could be brought in from home, waiting to hear back. Current Meds Current Medication Order Review: Intervened Comments: Changed IV ED access order Pharmacy Antibiotic Review Relevant Labs: WBC 12.01 10^3/uL (4.4-10.8) H 10/01/24 03:46 Temperature 37.2 C Temperature 36.8 C Temperature 37.2 C Temperature 36.9 C Pharmacy Antibiotic Activity: Reviewed, no change Comments: Patient is on levofloxacin, starting today at 1400, for pneumonia. No cultures pending. Patient was recently discharged from [facility] with azithromycin and Augmentin but unsure if these were started or even picked up from pharmacy per H+P.
[2024-10-01] MEDS: predniSONE 20 MG TAB 40 MG PO (13:44)
[2024-10-01] MEDS: Benzonatate 100 MG CAP PO ×2 (13:44→19:53)
[2024-10-01] MEDS: Famotidine 20 MG TAB PO (14:30)
[2024-10-01] MEDS: levoFLOXacin 750 MG/150 ML BAG 100 MG IVPB (15:06)
[2024-10-01] MEDS: Albuterol/Ipratropium 3 ML UPD VIAL UPD (19:59)
[2024-10-02 02:55] VITALS: BP 168/83; PULSE 67; PULSE 72; RESP 16; RESP 18; TEMP 36.6; O2SAT 100; O2SAT 97
[2024-10-02] MEDS: Albuterol/Ipratropium 3 ML UPD VIAL UPD (02:55)
[2024-10-02] MEDS: POTASSIUM CHLORIDE/D5-0.45NACL 1,000 ML 100 MEQ IV (06:40)
[2024-10-02 07:20] VITALS: BP 177/88; PULSE 68; RESP 20; TEMP 36.5; O2SAT 97
[2024-10-02] MEDS: guaiFENesin 600 MG TABCR PO (08:17)
[2024-10-02] MEDS: predniSONE 20 MG TAB 40 MG PO (08:17)
[2024-10-02] MEDS: Metoprolol CR 100 MG TABCR PO (08:18)
[2024-10-02] MEDS: hydroCHLOROthiazide 25 MG TAB PO (08:19)
[2024-10-02] MEDS: Benzonatate 100 MG CAP PO ×2 (08:19→14:07)
[2024-10-02] MEDS: Apixaban 5 MG TAB PO (08:20)
[2024-10-02] MEDS: Pantoprazole 40 MG VIAL IVP (08:20)
[2024-10-02] MEDS: Insulin Aspart 300 UNITS/3 ML PEN SC ×2 (08:22→12:13)
--- NOTE | 2024-10-02 09:37 | INITIAL_ITS ---
Date of service: 10/02/24 Time of Service: 09:37 Care Management Initial Assmt Initial Assessment Reason for Hospitalization: sepsis Functional Status/Living Situation Patient Presentation: William was sitting up in bed visiting with his Rosanne when CM met with him. He was in good spirits and announced to that he is being discharged. He was admitted yesterday with a hypertensive crisis. William had just been discharged on Saturday and was not able to get his metoprolol and Apixaban due to a pharmacy error. The next day he became ill and was unable to pick them up. His blood pressure on admission was 226/99. He was treated and his systolic blood pressure is now in the 160s to 170s. He is feeling well and is happy to be going home. William lives in [place] with his Rosanne, her son and [id number] and 2 of her 6 children. The other 4 children visit every other weekend. William uses a cane for ambulatory assistance and does not receive any community services. He is disabled but is able to do most of the cooking and housework. Town of Residence: [place] Resides with: Spouse (Rosanne) Significant Other/Family: [facility] Employment Status: Disabled Instrumental Activities of Daily Living (ADLs): Independent Medications Medication Management: Issues/Barriers with Obtaining (pharmacy did not fill prescriptions on day of dsicharge) Physical Functioning/Mobility Assistive Device: cane Advance Directives Advance Directives: Do you have an Advance Directive: Y 09/26/24 02:06 AD On File at [facility]: Y 09/26/24 02:06 Date Asked 09/26/24 10/01/24 08:30 AD Date Reviewed 10/01/24 10/01/24 03:50 COLST On File at [facility] COLST Date Scanned Code Status Resuscitation Status Full Code Portal Pt does not currently have a portal and education provided: Yes Insurance Coverage/Financial Issues Insurance: Medicare Self pay Care Team Visit Care Team Role Provider Type Simona Walsh APRN MD [facility] STAFF PHYSICIAN Local Primary Care Provider NON-[facility] STAFF PHYSICIAN Rosa Montoya MD Emergency Provider [facility] STAFF PHYSICIAN Saul Casey Admit Provider [facility] STAFF PHYSICIAN Attending Provider Discharge Potential Discharge Needs: PCP F/U Appt Anticipated Barriers to Discharge: None Identified Patient/Family Education Needs: Review discharge instructions, discuss Ask Me Three Transportation: Private vehicle Plan: William will be discharged home when medically cleared. He will follow up with his PCP and plan of care and transport with family. CM will follow and continue to assess for discharge planning concerns. Social Determinants of Health Screening Will the Patient Participate in the Screening?: Unable to obtain PFSH All Active Problems (Updated 10/02/24 @ 11:34 by Simona Walsh APRN) Ground glass opacity present on imaging of lung (Acute) Hypertensive emergency (Acute) Chest pain (Acute) Type 2 diabetes mellitus (Acute) Palpitations (Acute) Aortic aneurysm (Chronic) Renal cyst (Acute) Hallucination (Acute) Respiratory failure (Acute) Sepsis (Acute) Atrial fibrillation with rapid ventricular response (Acute) HTN (hypertension) (Chronic) Community acquired pneumonia (Acute) Social History Smoking/Tobacco Use Status: Never Smoking risk assessment performed?: Yes Alcohol Intake: never Substance use type: marijuana Housing: house Do you feel safe at home: Yes Do you feel safe in your relationship?: Yes
[2024-10-02 10:05] LABS: Anion Gap 12.6 mmol/L (3-11); BUN 12 mg/dL (7-18); CO2 23.4 mmol/L (21.0-32.0); Calcium 9.2 mg/dL (8.5-10.1); Chloride 102 mmol/L (98-107); Glucose 247 mg/dL (74-106); Potassium 3.6 mmol/L (3.5-5.1); Sodium 138 mmol/L (136-145)
[2024-10-02 11:58] VITALS: BP 180/90; PULSE 69; RESP 20; TEMP 36.7; O2SAT 95
--- NOTE | 2024-10-02 14:13 | W.PM.DS.N ---
Date of service: 10/02/24 Time of Service: 14:13 DS: Diagnosis Discharge Diagnosis (1) Sepsis: Status: Acute (2) Ground glass opacity present on imaging of lung: Status: Acute (3) Chest pain: Status: Acute (4) Type 2 diabetes mellitus: Status: Acute (5) HTN (hypertension): Status: Chronic (6) Atrial fibrillation with rapid ventricular response: Status: Acute (7) Persistent atrial fibrillation with RVR: Status: Resolved (8) Aortic aneurysm: Status: Chronic Discharge Plan Disposition Patient Disposition: Home Condition: Improving Discharge Details Reason For Visit: Hypertensive Emergency, Chest Pain Admit Date/Time: 10/01/24 07:29 Admit Provider: Saul Casey Attending Provider: Saul Casey [facility] Course: This 64 years old male patient with PMHx of T2DM, HTN,remote 3pack/day smoking, recent hospital admission for severe sepsis/pneumonia with new onset afib with RVR d/jaren on 09/29/24 on eliquis and metoprolol and not taking them,has not completed antibiotic from discharge, presented to the ED on 10/01/24 for evaluation of mid chest retro-sternal chest pain starting less than 35 minutes prior to presentation; described as heavy weight sitting on chest w/o radiation worsened by coughing and deep breathing; also to described restrictive feeling when taking deep breaths relieved by one nitro SL. The patient reported shortness of breath, cough productive of greenish -monteiro sputum. EKGs were normal with negative serial troponins. CT showed Multifocal ground-glass infiltrates in both lung thompson again noted, slightly further increased from the recent CT scan of 09/26/2024; no dissection to dilated ascending aorta measuring 4.5 cm. The patient was admitted for further evaluation of chest pain and worsening CT findings. [facility] cardiology consult recommended admission for chest pain management with MPI; to be done outpatient as per cardiology at [facility]. As the patient also met sepsis criteria with Levofloxacin, prednisone, mucinex , benzonate and protonix. The patient will be discharged on these medicines and advised to completed antibiotic course. The patient had no further c/o of chest pain chest pressure. On the day of discharge the patient was hemodynamically stable w/o fever, night sweats over 24 hours. The patient will need to f/u with PCP within 7 days of discharge and has a pumonology referral initiated. Recommendation for PCP follow-up: Repeat imaging s/p abnormal CT at 3 months Follow-up on pulmonology referral Discussed with Dr. Casey [place] Meds and New Rx's Prescriptions: New benzonatate 100 mg Capsule 100 mg PO TID Qty: 10 0RF guaifenesin [Mucus Relief ER] 600 mg Tablet Extended Release 12hr 600 mg PO BID Qty: 10 0RF prednisone 20 mg Tablet 40 mg PO DAILY Qty: 10 0RF levofloxacin 750 mg tablet 750 mg PO DAILY Qty: 5 0RF pantoprazole [Protonix] 40 mg tablet,delayed release (DR/EC) 40 mg PO DAILY Qty: 30 0RF Rx Instructions: Renewal to be discussed with PCP Continued albuterol sulfate 90 mcg/actuation HFA aerosol inhaler 2 puff inhalation Q6H PRN (Reason: shortness of breath or wheezing) Qty: 8.5 0RF hydrochlorothiazide 25 mg tablet 25 mg PO DAILY candesartan 32 mg tablet 32 mg PO DAILY Eliquis 5 mg Tablet 5 mg PO BID Qty: 180 1RF metoprolol succinate 100 mg tablet extended release 24 hr 100 mg PO DAILY Qty: 90 0RF Patient Comments: didn't start, first dose given in ED on 10/01 metformin 500 mg tablet extended release 24 hr 500 mg PO DAILY Qty: 30 1RF (DME) blood-glucose meter [FreeStyle [place] Lite] Kit See Rx Instructions .Route Qty: 1 0RF Rx Instructions: As directed (DME) lancets [FreeStyle Lancets] 28 gauge misc See Rx Instructions .Route Qty: 100 0RF Rx Instructions: As directed (DME) FreeStyle Test Strip See Rx Instructions .Route Qty: 100 11RF Rx Instructions: As directed Discharge Instructions Referrals: No,Local [Primary Care Provider] - (Follow-up with PCP within 7 days of discharge ) Oma Sandra PA [[facility]] - (Remote Hx of 3pack/day smoking -stopped but works with fumes/aerosols- needs PFT Recurrent PNA, 10/01-CT with worsening Multifocal ground-glass infiltrates in both lung thompson increased from the recent CT scan of 09/26/2024,Small lymph nodes are noted in both hilar regions as well as in the mediastinal fat including also subcarinal region. Small shotty lymph nodes are noted in both axillary regions.) Activity:: Activity as Tolerated Equipment/Supplies:: No Equipment Needed Diet:: heart healthy diabetic Discharge Orders Discharge Orders: Discharge Order (Routine); Ordered 10/02/24 Ordered By: Simona Walsh DS: Summary Time Spent with Patient providing and/or coordinating discharge services: Greater than 30 minutes Status at Discharge Functional status at discharge: independent ambulation Overall status at discharge: patient is progressing back to baseline Mental Status: mental status grossly normal Speech and Movement: speech and movement normal Mood: congruent mood Affect: normal affect Quality:SDOH Health Related Social Needs: No Data to Display Exam Narrative Exam Narrative: Constitutional The patient w/o acute distress HENMT: . Facial structures with normal appearance Eyes: Well aligned, intact ROM, non-icteric sclera Neck: Normal ROM, no meningeal signs Neuro:alert and oriented to self, person, place, time and situation. No neurological focal deficit Chest:Chest is symmetrical and normal appearance Resp: Unlabored breathing, clear lungs Cardio: regular rhythm, S1, S2, no murmur, GI: Abdomen is large, not distended, soft and non tender, bowel sounds are present Integumentary: No skin lesions or rash to exposed skin Extremities: strength 5/5 to bilateral lower and upper extremities Psych: RASS 0, congruent mood and normal affect. Psych Mental Status: mental status grossly normal Speech and Movement: speech and movement normal Mood: congruent mood Affect: normal affect DS: Data Vitals/I&O Vitals and I&O: Vital Signs Temperature 36.7 C 10/02/24 11:58 Temperature Source Temporal Artery Scan 10/02/24 11:58 Pulse 69 10/02/24 11:58 Pulse Rhythm Regular 10/01/24 12:41 Pulse Strength Normal 10/01/24 05:51 Pulse 75 10/01/24 08:20 Respiratory Rate 20 10/02/24 11:58 Respiratory Effort Normal, Non-Labored 10/01/24 12:41 Respiratory Depth Normal 10/01/24 12:41 Respiratory Pattern Normal 10/01/24 12:41 Blood Pressure 180/90 H 10/02/24 11:58 Blood Pressure Mean 120 10/01/24 08:15 Blood Pressure Position Supine 10/01/24 05:51 Pulse Oximetry 95 10/02/24 11:58 Oxygen Delivery Method Room Air 10/02/24 11:58 Oxygen Flow Rate 0 10/02/24 11:58 Pain Level 0 10/02/24 11:58 Comment primary nurse notified 10/02/24 11:58 Comment post NGT SL 10/01/24 08:15 Intake & Output 10/01/24 10/02/24 10/02/24 23:59 11:59 23:59 Intake Total 1150 / 1150 1000 / 1000 Output Total 700 / 700 Balance 450 / 450 1000 / 1000 Weight 146.9 kg 140.9 kg Intake: IV 1150 / 1150 1000 / 1000 Output: Urine 700 / 700 Other: Urine Color Yellow Yellow Urine Appearance Clear Clear Urine Odor Normal Normal Comment Patient voids ind. in toilet. Stool Size Moderate Data Completed and Pending Labs on day of discharge: Labs from last 24 hours 10/02/24 10/02/24 12:46 09:25 Sodium 138 Potassium 3.6 Chloride 102 Carbon Dioxide 23.4 Anion Gap 12.6 H BUN 12 Creatinine 1.0 Est GFR (CKD-EPI 2020) 85.10 Glucose 247 H Calcium 9.2 Urine Legionella Ag Pending M. pneumoniae Source Pending M. pneumoniae (PCR) Pending Ur Strep pneumoniae Ag Pending 10/02/24 12:46 Sputum Sputum Culture - Pending 10/02/24 12:46 Sputum Gram Stain - Pending Preliminary micro results at discharge 10/02/24 12:46 Sputum Culture - Pending Sputum Gram Stain - Pending [facility] All Active Problems (Updated 10/02/24 @ 11:34 by Simona Walsh APRN) Ground glass opacity present on imaging of lung (Acute) Hypertensive emergency (Acute) Chest pain (Acute) Type 2 diabetes mellitus (Acute) Palpitations (Acute) Aortic aneurysm (Chronic) Renal cyst (Acute) Hallucination (Acute) Respiratory failure (Acute) Sepsis (Acute) Atrial fibrillation with rapid ventricular response (Acute) HTN (hypertension) (Chronic) Community acquired pneumonia (Acute) Social History Smoking/Tobacco Use Status: Never Smoking risk assessment performed?: Yes Alcohol Intake: never Substance use type: marijuana Housing: house Do you feel safe at home: Yes Do you feel safe in your relationship?: Yes Time Spent with Patient Time Spent with Patient: 70-84 minutes4 Time was spent: preparing to see the patient(eg.review tests), obtaining and/or reviewing separately otained hiistory, ordering medications,tests, procedures, referring, communicating with other health medicare interviewer, indepentently interpreting results, counseling the patient and care coordination
[2024-10-02] MEDS: levoFLOXacin 750 MG/150 ML BAG 100 MG IVPB (14:41)
--- NOTE | 2024-10-02 15:29 | CMDISCH_ITS ---
Date of service: 10/02/24 Time of Service: 15:29 LACE Index Scoring Tool Questions: Length of Stay (in days): 1 Was the patient admitted via the E.D.?: Yes Comorbidities: Diabetes w/o Complication E.D. Visits: 3 Answers: Total Score: 8 Risk of Readmission: Low Risk Care Management Discharge Plan Reason for Hospitalization: hypertension Discharge Plan: William will be discharged home with no new services. He will follow up with his community providers and plan of care and transport with family. Patient/Family Education Needs: Review of discharge instructions, limitations, follow up plan and discuss Ask Me Three [facility] Health Related Social Needs: No Data to Display
[2024-10-02 15:58] VITALS: BP 182/106; PULSE 73; RESP 16; TEMP 36.6; O2SAT 96
[2024-10-03 23:20] LABS: Legionella Ag Detection Urine Negative (Negative)
[2024-10-06 00:47] LABS: Streptococcus Pneumoniae Ag, U Negative (Negative)
== END 2024-10-02 16:28 | disposition home or self-care (01) ==
LOC: ER 07:26 → MS 08:30
PROVIDERS: Admitting Provider Family Medicine; Emergency Provider Student in an Organized Health Care Education/Training Program; Responsible Provider Nurse Practitioner Acute Care; Visit Provider Family Medicine
DX: A41.9 Sepsis, unspecified organism (principal); R91.8 Other nonspecific abnormal finding of lung field; R07.89 Other chest pain; I16.1 Hypertensive emergency; I10 Essential (primary) hypertension; E11.9 Type 2 diabetes mellitus without complications; I48.19 Other persistent atrial fibrillation; Z79.899 Other long term (current) drug therapy; Z79.01 Long term (current) use of anticoagulants; Z87.891 Personal history of nicotine dependence; I71.21 Aneurysm of the ascending aorta, without rupture; J18.9 Pneumonia, unspecified organism
CPT/HCPCS: 00123; 36415; 71275; 80048; 80053; 82805; 83690; 87449; 93005; 96365; 96366; 96375; 99291; 81003; 81015; 83735; 83880; 84484; 85025; 85730; 87070; 87205; 87581; 87899; 93010; 94667; 99223; 99239; G0378; J1815; J1956; J2470; J3490; J7512; J7620

== ENCOUNTER 2024-10-17 16:15 | Inpatient (IN) | payer MEDICARE, SELFPAY ==
[2024-10-17] VITALS (67 sets, daily range): BP systolic 117–208; BP diastolic 40–159; PULSE 71–117; RESP 13–44; TEMP 37.5–37.7; O2SAT 65–99
--- NOTE | 2024-10-17 16:15 | DI.RAD_ITS ---
Exam(s) XR PORTABLE CHEST AP EXAM: XR PORTABLE CHEST AP CLINICAL HISTORY: shortness of breath, hypoxia TECHNIQUE: 2D digital imaging was performed. COMPARISON: CR,XR XR PORTABLE CHEST AP from 09/25/[address] CHEST PE CTA from 10/01/2024 FINDINGS: Exam is limited by overlying monitoring leads and suboptimal penetration. LUNGS: No gross area of consolidation. No pleural abnormality seen. HEART: Normal size. AORTA: Normal diameter. BONES: Unremarkable for age. Soft tissues: Unremarkable. IMPRESSION: Limited exam. No acute findings. DATA REPOSITORY: RADIATION DOSE DELIVERED:
--- NOTE | 2024-10-17 16:15 | RT.EKG_ITS ---
APPROVED REPORT Exam: Resting ECG Reason for Exam: chest pain/SOB Patient Location: E HR:110 bpm ECG Measurements Heart Rate 110 AXIS NJ 169 P 48 QRSd 114 QRS 70 QT 347 T 20 QTc 470 Conclusion Sinus tachycardia...rate> 99
--- NOTE | 2024-10-17 16:32 | ED.GENADUL_ITS ---
Discharge Plan Disposition Patient Disposition: Admit to [facility] Condition: Stable Discharge Details Chief Complaint: SOB Clinical Impression: Pneumonia Primary Care Provider: Sophie,Local ED Provider: Gutierrez Ingram Home Meds and New Rx's Prescriptions: No Action albuterol sulfate 90 mcg/actuation HFA aerosol inhaler 2 puff inhalation Q6H PRN (Reason: shortness of breath or wheezing) Qty: 8.5 0RF hydrochlorothiazide 25 mg tablet 25 mg PO DAILY candesartan 32 mg tablet 32 mg PO DAILY Eliquis 5 mg Tablet 5 mg PO BID Qty: 180 1RF metoprolol succinate 100 mg tablet extended release 24 hr 100 mg PO DAILY Qty: 90 0RF Patient Comments: didn't start, first dose given in ED on 10/01 metformin 500 mg tablet extended release 24 hr 500 mg PO DAILY Qty: 30 1RF (DME) blood-glucose meter [FreeStyle Stanton Lite] Kit See Rx Instructions .Route Qty: 1 0RF Rx Instructions: As directed (DME) lancets [FreeStyle Lancets] 28 gauge misc See Rx Instructions .Route Qty: 100 0RF Rx Instructions: As directed (DME) FreeStyle Test Strip See Rx Instructions .Route Qty: 100 11RF Rx Instructions: As directed pantoprazole [Protonix] 40 mg tablet,delayed release (DR/EC) 40 mg PO DAILY Qty: 30 0RF Rx Instructions: Renewal to be discussed with PCP HPI General Date/Time Provider Initiated Documentation: 10/17/24 16:16 . HPI Narrative: 64 year-old male presents to ED today by POV/ambulating with his with a chief complaint of woke up this morning, could not catch his breath, breathing fast, denies chest pain- states he was recently admitted for pneumonia, and finished his ABX on discharge, with onset this morning. Quality described as feels feverish/chills, trouble with headache and minor cough, no radiation to overt chest pain, endorses sore throat, body aches, denies nausea/vomiting, denies near fainting. Severity is described as severe for shortness of breath. Palliating factors include nothing specific attempted. Provoking factors include nothing specific. Events leading up to the incident/Associated Symptoms: Patient was seen and diagnosed with an aortic aneurysm without dissection at last visit, recommended outpatient surveillance. Patient was given mono- treatment with Levofloxacin for PNA. Started on eliquis at last visit as he had atrial fibrillation with RVR. Patient is anticoagulated. Related Data Home Medications ?Medication ?Instructions ?Recorded ?Confirmed candesartan 32 mg tablet 32 mg PO DAILY 09/14/24 10/17/24 hydrochlorothiazide 25 mg tablet 25 mg PO DAILY 09/14/24 10/17/24 albuterol sulfate 90 mcg/actuation 2 puff inhalation Q6H PRN 09/16/24 10/17/24 aerosol inhaler shortness of breath or wheezing #8.5 grams apixaban 5 mg tablet (Eliquis) 5 mg PO BID #180 tabs 09/29/24 10/17/24 blood sugar diagnostic (FreeStyle #100 ea 09/29/24 10/17/24 Test strips) blood-glucose meter (FreeStyle #1 ea 09/29/24 10/17/24 Stanton Lite kit) lancets 28 gauge (FreeStyle #100 ea 09/29/24 10/17/24 Lancets) metformin 500 mg tablet,extended 500 mg PO DAILY #30 tabs 09/29/24 10/17/24 release 24 hr metoprolol succinate 100 mg 100 mg PO DAILY #90 tabs 09/29/24 10/17/24 tablet,extended release 24 hr pantoprazole 40 mg tablet,delayed 40 mg PO DAILY #30 tabs 10/02/24 10/17/24 release (Protonix) Previous Rx's ?Medication ?Instructions ?Recorded albuterol sulfate 90 mcg/actuation 2 puff inhalation Q6H PRN 09/16/24 aerosol inhaler shortness of breath or wheezing #8.5 grams apixaban 5 mg tablet (Eliquis) 5 mg PO BID #180 tabs 09/29/24 blood sugar diagnostic (FreeStyle #100 ea 09/29/24 Test strips) blood-glucose meter (FreeStyle #1 ea 09/29/24 Stanton Lite kit) lancets 28 gauge (FreeStyle #100 ea 09/29/24 Lancets) metformin 500 mg tablet,extended 500 mg PO DAILY #30 tabs 09/29/24 release 24 hr metoprolol succinate 100 mg 100 mg PO DAILY #90 tabs 09/29/24 tablet,extended release 24 hr pantoprazole 40 mg tablet,delayed 40 mg PO DAILY #30 tabs 10/02/24 release (Protonix) Allergies Allergy/AdvReac Type Severity Reaction Status Date / Time oxycodone (From Percocet) Allergy Severe Itching Verified 10/17/24 16:26 General Stated Complaint: SOB CHARLES: 2 Review of Systems All systems reviewed & are unremarkable except as noted in HPI and below Exam Narrative Exam Narrative: GENERAL APPEARANCE: Well-nourished, toxic, awake and alert, atraumatic, mild acute distress. SKIN: Warm, pink, dry, intact, without rashes/lesions/ulcerations. HEAD: Normocephalic, atraumatic, normal hair distribution for gender/age. EYES: Normal conjunctiva, no exudates on lids/lashes. ENT: Nares patent, no circumoral cyanosis, no facial swelling NECK: Supple, trachea midline, painless cervical ROM. LUNGS/CHEST: Lungs CTA bilaterally-no rales at bases, tachypneic labored respirations, normal A/P diameter, symmetrical expansion, no chest wall deformity HEART (CV/PV): Regular rate and rhythm without murmur, tachycardic, no peripheral edema, no pitting edema in the legs, no JVD. ABDOMEN: Soft, non-distended, no guarding, no tenderness. MSK: Normal ROM, no swelling/deformity to bilateral UEs or LEs, moving all extremities without weakness, no cyanosis, spine midline without tenderness, normal curvature. NEURO: Mental Status AAOx4 - alert to person, place, time, events No facial droop, no forehead involvement. Motor: No focal weakness - strength 5/5 in bilateral UEs and LEs, proximal and distal, symmetric. Sensory: sensation intact to light touch globally. Gait normal: patient ambulated without ataxia into ED room. PSYCH: euthymic, cooperative, pleasant, appropriate speech Course Vital Signs Vital signs: Vital Signs Temperature 37.6 C 10/17/24 16:18 Pulse 114 H 10/17/24 16:18 Respiratory Rate 22 10/17/24 16:18 Blood Pressure 205/92 H 10/17/24 16:18 Pulse Oximetry 87 L 10/17/24 16:18 Temperature 37.6 C 10/17/24 16:18 Temperature Source Oral 10/17/24 16:18 Pulse 114 H 10/17/24 16:18 Respiratory Rate 22 10/17/24 16:18 Blood Pressure 205/92 H 10/17/24 16:18 Pulse Oximetry 94 10/17/24 16:27 Oxygen Delivery Method Nasal Cannula 10/17/24 16:27 Oxygen Flow Rate 5 10/17/24 16:27 Lab/Test Results Lab/Test Results: 10/17/24 16:21 Blood Blood Culture - Pending 10/17/24 16:21 Blood Blood Culture - Pending Medical Decision Making This dictation utilizes [id number] dictation software and may contain unedited grammatical errors. 64 year-old male presents to ED today by POV/ambulating with his with a chief complaint of woke up this morning, could not catch his breath, breathing fast, denies chest pain- states he was recently admitted for pneumonia, and finished his ABX on discharge, with onset this morning. Quality described as feels feverish/chills, trouble with headache and minor cough, no radiation to overt chest pain, endorses sore throat, body aches, denies nausea/vomiting, denies near fainting. Severity is described as severe for shortness of breath. Palliating factors include nothing specific attempted. Provoking factors include nothing specific. Events leading up to the incident/Associated Symptoms: Patient was seen and diagnosed with an aortic aneurysm without dissection at last visit, recommended outpatient surveillance. Patient was given mono- treatment with Levofloxacin for PNA. Started on eliquis at last visit as he had atrial fibrillation with RVR. Patients' medical history: [ ]. Family and social history: [ ]. Pertinent exam findings / vital signs include tachypnea, regular rate, tachycardia on arrival, respiratory distress with SPO 2 to 88% on room air, benign abdomen, afebrile on arrival. Differential / pathologies of concern include outpatient treatment failure for pneumonia, not likely aortic dissection rupture, considered PE but patient recently on Eliquis, newly acquired viral syndrome, unlikely heart failure in this sinus rhythm. Diagnostic studies of: -CBC, CMP, VBG, lactate, D-dimer, troponin, BNP, lipase, respiratory PCR swab, blood cultures, XR chest, CTA chest PE study, EKG. -lactate 2.5, cultures pending -WBC count 18, was 12 at discharge -no PNA on CXR -EKG no [id number], no ischemic changes, sinus tach, normal axis/intervals, no new LBBB -serial troponins negative -CTA of chest shows continuation of ground-glass opacities in lungs, no PE -Lipase neg -BNP elev at 349, do not suspect fluid overload -PCR swab negative Interventions of: -Suspect levofloxacin failed to treat his PNA with rising WBC count, lethargic, fever -PE ruleout with elevated D-dimer, far less clinical suspicion of aortic dissection as patient is not having chest pain, discussed with Dr. De La Fuente of [facility] Hospitalist team -Given ceftriaxone, azithromycin and vancomycin for failed outpatient PNA treatment. -Patient did spike low-grade fever around 2120 to 37.7, has gotten Tylenol, no ibuprofen given as he's on Eliquis. ED Course/Assessment/Plan: William Stuart is a 64-year-old male who was recently admitted here for pneumonia treatment, finished levofloxacin at home, was also diagnosed with A- fib with RVR and started on Eliquis at last visit as well as a 4.5 cm aortic aneurysm recommended for surveillance, he presents with no chest pain, 88% on room air with tachypnea and tachycardia, he has significantly increased his white count from his values at discharge while at home, I do suspect he is having exacerbation of pneumonia, perhaps pathogen not covered by levofloxacin, serial troponins are negative, he is not fluid overloaded has no peripheral edema, his BNP is elevated at 349 but I do not suspect any heart failure at this time, patient did spike a fever, has gotten Tylenol, I discussed case with Dr. Reyna who accepted for admission, blood cultures are pending, patient has no smoking or COPD history to explain any chronic cause of his respiratory failure. Disposition of Pneumonia, Acute Hypoxic Respiratory Failure. Patient verbalized understanding of the plan and return to ED criteria and engaged in shared decision making. Medical Records Medical records reviewed: Yes I reviewed the patient's medical records. Imaging Data Radiologic Study: Attestation: I personally reviewed and interpreted this imaging study as follows: Imaging: X-Ray Radiologist's impression: Exam: XR Chest Exam date and time: 10/17/2024 4:33 PM Age: 64 years old Clinical indication: Other: Shortness of breath, hypoxia TECHNIQUE: Imaging protocol: Radiologic exam of the chest. Views: 1 view. COMPARISON: CT CHEST PE CTA 10/01/2024 4:11 AM FINDINGS: Lungs: Unremarkable. No consolidation. Pleural spaces: Unremarkable. No pleural effusion. No pneumothorax. Heart/Mediastinum: Unremarkable. No cardiomegaly. Bones/joints: Degenerative changes in the thoracic spine IMPRESSION: No acute findings. Dictated and Authenticated by: Norah Ayala MD. Radiologic Study #2: Attestation: I personally reviewed and interpreted this imaging study as follows: Imaging: CT Scan Radiologist's impression: Exam: CTA Chest With Contrast Exam date and time: 10/17/2024 8:02 PM Age: 64 years old Clinical indication: Shortness of breath TECHNIQUE: Imaging protocol: Computed tomographic angiography of the chest with contrast. Exam focused on the arteries. 3D rendering (Not supervised by radiologist): MIP and/or 3D reconstructed images were created by the technologist. Contrast material: 350; Contrast volume: 100 ml; Contrast route: INTRAVENOUS (IV); COMPARISON: CT CHEST PE CTA 10/01/2024 4:11 AM FINDINGS: Pulmonary arteries: Normal. No pulmonary emboli. Aorta: Unremarkable. No aortic aneurysm. No aortic dissection. Lungs: There are patchy ill-defined ground-glass and interstitial changes in the lungs, overall stable compared with prior study. No definite focal consolidation. Pleural spaces: Unremarkable. No pneumothorax. No pleural effusion. Heart: Unremarkable. No cardiomegaly. No pericardial effusion. Lymph nodes: Unremarkable. No enlarged lymph nodes. Kidneys: Left renal cyst. Bones/joints: Unremarkable. No acute fracture. Soft tissues: Unremarkable. IMPRESSION: 1. No evidence for pulmonary embolus. 2. Patchy ground-glass and interstitial changes again noted in the lungs, not significantly changed compared with previous exam. Dictated and Authenticated by: Tamika Chavez MD. Lab Data Lab results reviewed: Yes I reviewed the patient's lab results. Labs: 10/17/24 17:00 Blood Blood Culture - Pending 10/17/24 16:35 Blood Blood Culture - Pending Laboratory Tests Range/Units 10/17/24 10/17/24 10/17/24 16:25 16:29 17:25 WBC (4.4-10.8) 10^3/uL 18.04 H RBC (4.36-5.78) 10^6/uL 5.39 Hgb (13.5-17.5) g/dL 14.0 Hct (40.0-50.0) % 45.0 MCV (80-95) fL 84 MCH (27.0-33.0) pg 26.0 L MCHC (32.0-36.0) % 31.1 L RDW (11.8-14.1) % 16.5 H Plt Count (130-400) 10^3/uL 316 MPV (8.0-11.0) fL 9.2 Immature Gran % % 0.6 Neutrophils % % 91.5 Lymphocytes % % 4.5 Monocytes % % 2.9 Eosinophils % % 0.2 Basophils % % 0.3 Nucleated RBC % (0.0-0.3) % 0.0 Absolute Neutrophils (1.2-6.7) 10^3/uL 16.51 H Absolute Lymphocytes (1.2-3.4) 10^3/uL 0.81 L Absolute Monocytes (0.1-0.8) 10^3/uL 0.52 Absolute Eosinophils (0.0-0.7) 10^3/uL 0.04 Absolute Basophils (0.0-0.2) 10^3/uL 0.05 D-Dimer (<500) ng/mlFEU 521 H VBG pH (7.31-7.41) 7.38 VBG pCO2 (41-51) mmHg 53 H VBG pO2 mmHg 23 VBG HCO3 (23-28) mmol/L 31 H VBG Total CO2 (24-29) mmol/L 28 VBG O2 Saturation % 37 VBG Base Excess (-2-3) mmol/L 6 H VBG Lactate (<or=2.0) mmol/L 2.5 H* Sodium (136-145) mmol/L 138 Potassium (3.5-5.1) mmol/L 3.9 Chloride (98-107) mmol/L 100 Carbon Dioxide (21.0-32.0) mmol/L 29.7 Anion Gap (3-11) mmol/L 8.3 BUN (7-18) mg/dL 14 Creatinine (0.70-1.30) mg/dL 1.1 Est GFR (CKD-EPI 2020) (mL/min/1.73m2) 75.90 Glucose (74-106) mg/dL 159 H Calcium (8.5-10.1) mg/dL 9.5 Total Bilirubin (0.2-1.0) mg/dL 0.6 AST (15-37) U/L 20 ALT (16-63) U/L 19 Alkaline Phosphatase (46-116) U/L 117 H Troponin I (<or=76) ng/L 9 11 NT-Pro-B Natriuret Pep (<300) pg/mL 349 H Total Protein (6.4-8.2) g/dL 8.9 H Albumin (3.4-5.0) g/dL 3.3 L Lipase (<78) U/L 55 COVID-19 Source Nasopharynx SARS-CoV-2 (PCR) (Negative) Negative Influenza Type A (PCR) (Negative) Negative Influenza Type B (PCR) (Negative) Negative RSV (PCR) (Negative) Negative Quality:SDOH Health Related Social Needs: No Data to Display PFSH All Active Problems (Updated 10/17/24 @ 22:23 by CAMMIE Unger) Pneumonia (Acute) Lactic acid acidosis (Acute) Ground glass opacity present on imaging of lung (Acute) Hypertensive emergency (Acute) Type 2 diabetes mellitus (Acute) Palpitations (Acute) Aortic aneurysm (Chronic) Renal cyst (Acute) Hallucination (Acute) Respiratory failure (Acute) Atrial fibrillation with rapid ventricular response (Acute) HTN (hypertension) (Chronic) Community acquired pneumonia (Acute) Medical History (Updated 10/17/24 @ 22:23 by CAMMIE Unger) Severe sepsis Sepsis Social History Smoking/Tobacco Use Status: Former Tobacco Use Smoking risk assessment performed?: Yes Alcohol Intake: former Drug use: Current Sobriety Substance use type: marijuana Housing: house Do you feel safe at home: Yes Do you feel safe in your relationship?: Yes
[2024-10-17 16:33] LABS: BE (Venous) 6 mmol/L (-2-3); HCO3 (Venous) 31 mmol/L (23-28); O2 Sat (Venous) 37 %; TCO2 (Venous) 28 mmol/L (24-29); pCO2 (Venous) 53 mmHg (41-51); pH (Venous) 7.38 (7.31-7.41); pO2 (Venous) 23 mmHg
[2024-10-17 16:35] LABS: Abs Immature Grans 0.11 10^3/uL (0.0-0.06); Absolute Basophil Count 0.05 10^3/uL (0.0-0.2); Absolute Eosinophil Count 0.04 10^3/uL (0.0-0.7); Absolute Lymphocyte Count 0.81 10^3/uL (1.2-3.4); Basophils % 0.3 %; Eosinophils % 0.2 %; Immature Grans % 0.6 %; Lymphocytes % 4.5 %; MCHC 31.1 % (32.0-36.0); MCV 84 fL (80-95); MPV 9.2 fL (8.0-11.0); Monocytes % 2.9 %; Neutrophils % 91.5 %; Platelet Count 316 10^3/uL (130-400); RBC 5.39 10^6/uL (4.36-5.78); RDW 16.5 % (11.8-14.1); RDW-SD 50.1 fL; WBC 18.04 10^3/uL (4.4-10.8)
[2024-10-17 16:40] LABS: Lactate 2.5 mmol/L (<or=2.0)
[2024-10-17 16:57] LABS: ALT 19 U/L (16-63); AST 20 U/L (15-37); Albumin 3.3 g/dL (3.4-5.0); Alkaline Phosphatase 117 U/L (46-116); Anion Gap 8.3 mmol/L (3-11); BUN 14 mg/dL (7-18); Bilirubin, Total 0.6 mg/dL (0.2-1.0); CO2 29.7 mmol/L (21.0-32.0); CREATININE 1.1 mg/dL (0.70-1.30); Calcium 9.5 mg/dL (8.5-10.1); Chloride 100 mmol/L (98-107); Glucose 159 mg/dL (74-106); Lipase 55 U/L (<78); NT-proBNP 349 pg/mL (<300); Potassium 3.9 mmol/L (3.5-5.1); Sodium 138 mmol/L (136-145); Total Protein 8.9 g/dL (6.4-8.2); Troponin I 9 ng/L (<or=76)
[2024-10-17 17:03] LABS: Absolute Monocyte Count 0.52 10^3/uL (0.1-0.8); Absolute Neutrophil Count 16.51 10^3/uL (1.2-6.7)
--- NOTE | 2024-10-17 17:13 | DI.VRAD_ITS ---
PROCEDURE INFORMATION: Exam: XR Chest Exam date and time: 10/17/2024 4:33 PM Age: 64 years old Clinical indication: Other: Shortness of breath, hypoxia TECHNIQUE: Imaging protocol: Radiologic exam of the chest. Views: 1 view. COMPARISON: CT CHEST PE CTA 10/01/2024 4:11 AM FINDINGS: Lungs: Unremarkable. No consolidation. Pleural spaces: Unremarkable. No pleural effusion. No pneumothorax. Heart/Mediastinum: Unremarkable. No cardiomegaly. Bones/joints: Degenerative changes in the thoracic spine IMPRESSION: No acute findings. Dictated and Authenticated by: Norah Ayala MD. Orderin Juan Jose Whitley MD
[2024-10-17 17:16] LABS: D-Dimer 521 ng/mlFEU (<500)
[2024-10-17 17:19] LABS: COVID-19 PCR Negative (Negative); Influenza A PCR Negative (Negative); Influenza B PCR Negative (Negative); RSV PCR Negative (Negative)
[2024-10-17 17:24] LABS: Source Nasopharynx
[2024-10-17] MEDS: AZITHROMYCIN 500 MG in Normal Saline 250 ML 250 MG IVPB (17:46)
[2024-10-17] MEDS: CEFEPIME 2 GM in Normal Saline 100 ML IVPB (17:47)
[2024-10-17 17:55] LABS: Troponin I 11 ng/L (<or=76)
[2024-10-17] MEDS: VANCOMYCIN 2,000 MG in Normal Saline 500 ML 250 MG IVPB (18:02)
[2024-10-17] MEDS: Albuterol/Ipratropium 3 ML UPD VIAL 9 ML UPD (18:11)
--- NOTE | 2024-10-17 18:42 | DI.CT_ITS ---
Exam(s) CT CHEST PE CTA EXAM: CT CHEST PE CTA CLINICAL HISTORY: shortness of breath. TECHNIQUE: Imaging Protocol: Axial CT angiography was performed with multi-slice acquisition and mu lti-planar reconstructions as well as axial, coronal and sagittal MIP reconstructions. Computer aided detection (CAD) was utilized. CONTRAST MATERIAL: Intravenous: Omnipaque 350 Contrast volume:100 ml COMPARISON: CT CT CHEST WO from 09/26/[address] CHEST PE CTA from 10/01/2024 CR,XR XR PORTABLE CHEST AP from 10/17/2024 FINDINGS: Pulmonary Arteries: No evidence of filling defect to suggest pulmonary emboli. Mediastinum and Marcela: No dominant adenopathy or fluid collection. Pulmonary parenchyma: Roughly stable bilateral ground-glass and interstitial opacities greater in the upper lobes and peripherally. Expiratory changes also present. No consolidation or dominant measur able mass. Pleura: No effusion or pneumothorax. Heart: The heart is not dilated. Minimal coronary artery calcifications are seen. Aorta: Thoracic aorta non-dilated. No dissection. Upper abdomen: No acute findings. Enlarged liver with hepatic steatosis. Bones: Unremarkable for age. Tubes, Catheters, and Lines: None Soft tissues: Severe bilateral gynecomastia. IMPRESSION: No evidence of pulmonary embolism. Stable ground-glass and interstitial opacities in both lungs. RADIATION DOSE DELIVERED: Total DLP DATA REPOSITORY: All CT scans at this facility are submitted to the National Radiology Data Registry (NRDR) Dose Index Registry (DIR) with the [employer] (ACR). RADIATION OPTIMIZATION: All CT scans at this facility use at least one of these dose optimization te chniques: automated exposure control; mA and/or kV adjustment per patient size (includes targeted exa ms where dose is matched to clinical indication); or iterative reconstruction.
[2024-10-17] MEDS: ACETAMINOPHEN 1,000 MG/100 ML BAG 400 MG IVPB (18:53)
[2024-10-17 19:40] LABS: MRSA PCR Negative (Negative)
[2024-10-17 19:56] LABS: Troponin I 14 ng/L (<or=76)
[2024-10-17] MEDS: Normal Saline - Diluent 50 ML VIAL IJ (20:09)
[2024-10-17] MEDS: Omnipaque 350 MG/ML 100 ML BTL IJ (20:10)
--- NOTE | 2024-10-17 21:40 | DI.VRAD_ITS ---
PROCEDURE INFORMATION: Exam: CTA Chest With Contrast Exam date and time: 10/17/2024 8:02 PM Age: 64 years old Clinical indication: Shortness of breath TECHNIQUE: Imaging protocol: Computed tomographic angiography of the chest with contrast. Exam focused on the arteries. 3D rendering (Not supervised by radiologist): MIP and/or 3D reconstructed images were created by the technologist. Contrast material: 350; Contrast volume: 100 ml; Contrast route: INTRAVENOUS (IV); COMPARISON: CT CHEST PE CTA 10/01/2024 4:11 AM FINDINGS: Pulmonary arteries: Normal. No pulmonary emboli. Aorta: Unremarkable. No aortic aneurysm. No aortic dissection. Lungs: There are patchy ill-defined ground-glass and interstitial changes in the lungs, overall stable compared with prior study. No definite focal consolidation. Pleural spaces: Unremarkable. No pneumothorax. No pleural effusion. Heart: Unremarkable. No cardiomegaly. No pericardial effusion. Lymph nodes: Unremarkable. No enlarged lymph nodes. Kidneys: Left renal cyst. Bones/joints: Unremarkable. No acute fracture. Soft tissues: Unremarkable. IMPRESSION: 1. No evidence for pulmonary embolus. 2. Patchy ground-glass and interstitial changes again noted in the lungs, not significantly changed compared with previous exam. Dictated and Authenticated by: Tamika Chavez MD. Orderin Juan Jose Whitley MD
[2024-10-17 22:12] LABS: Troponin I 20 ng/L (<or=76)
--- NOTE | 2024-10-17 22:14 | HPE_ITS ---
Date of service: 10/17/24 Time of Service: 22:29 Assessment and Plan Assessment and plan (1) Severe sepsis: Assessment and plan: -patient meets criteria for severe sepsis with WBC 18, HR 114, CAP as presumed source of infection, initial lactic acid of 2.5 -started on vanc and cefepime, will continue -was recently hospitalized twice at [facility] with CAP; the first time he was treated with linezolid and zosyn, and discharged with augmentin and azithro, the second time he was treated with levoquin, though there was documented question if patient had been taking his prescribed antibiotics at discharge -CXR without acute findings, but CT again showed similar appearing groud glass opacities -f/u repeat lactic -f/u AM CBC (2) Community acquired pneumonia: Status: Acute Assessment and plan: -presumed source of infection as noted above (3) Lactic acid acidosis: Status: Acute Assessment and plan: -secondary to severe sepsis as noted above, initially 2.5 -f/u repeat lactic acid (4) COPD exacerbation: Status: Acute Assessment and plan: - Patient does not carry diagnosis of COPD, though during previous hospitalization it was recommended that he have outpatient pulmonary function test - He is not particularly wheezy, but is requiring more oxygen than would be expected based on his chest CT findings - Started p.o. prednisone 40 mg in the morning as well as scheduled nebulizers (5) Acute respiratory failure with hypoxia: Status: Resolved Assessment and plan: -presumed to be secondary to severe sepsis CAP and possible COPD exacerbation as noted above -currently requiring 5L NC -goal O2 >92%, wean O2 as tolerated (6) Persistent atrial fibrillation with RVR: Status: Resolved Assessment and plan: -diagnosed during previous hospitalization -continue eliquis and metoprolol (7) Aortic aneurysm: Status: Chronic Assessment and plan: -last measured at 4.5 (8) Type 2 diabetes mellitus: Status: Acute Assessment and plan: -continue home metformin (9) HTN (hypertension): Status: Chronic Assessment and plan: -continue home HCTZ, candasartan History of Present Illness History of Present Illness Chief Complaint: shortness of breath Narrative: 64yo male with PMH HTN, recently diagnosed a-fib on elqiuis, and 2 recent hospitalizations for severe sepsis CAP and acute hypoxic respiratory failure who presents to the ED with complaints of shortness of breath. Of note the patient was at [facility] from 09/26-09/29 for severe sepsis pneumonia where he was treated with linezolid and zosyn and discharged with augmentin and azithro. He was then hospitalized again at [facility] from 10/01/10/02 for the same, and was treated with levoquin. Patient states that since his most recent discharge he had been in his usual state of health when he woke up this morning and began to feel short of breath. He also complains of subjective fever, chills, and sore throat, but denies any lightheadedness, dizziness, nausea, vomiting, or diarrhea. In the ED the patient was noted as being tachycardic with a HR of 114, and being hpoxic with an O2 of 87% requiring up to 5L NC to maintain O2 saturation >92%. His CBC showed WBC 18, with a tom CMP but a LA of 2.5. BLood cultures were drawn and the patient was started on vanc and cefepime. CXR did not show any acute findings, and CTA PE did not show any emboli, but again showed similar appearing ground glass opacities. At which time emergency room provider paged hospitalist for admisison of a patient with severe sepsis and acute hypoxic respiratory failure secondary to CAP. Review of Systems All systems reviewed & are unremarkable except as noted in HPI and below PFSH All Active Problems (Updated 10/18/24 @ 06:46 by Yakov De La Fuente MD) COPD exacerbation (Acute) Pneumonia (Acute) Lactic acid acidosis (Acute) Ground glass opacity present on imaging of lung (Acute) Hypertensive emergency (Acute) Type 2 diabetes mellitus (Acute) Palpitations (Acute) Aortic aneurysm (Chronic) Renal cyst (Acute) Hallucination (Acute) Respiratory failure (Acute) Atrial fibrillation with rapid ventricular response (Acute) HTN (hypertension) (Chronic) Community acquired pneumonia (Acute) Medical History (Updated 10/18/24 @ 06:46 by Yakov De La Fuente MD) Severe sepsis Sepsis Social History Smoking/Tobacco Use Status: Former Tobacco Use Smoking risk assessment performed?: Yes Alcohol Intake: former Drug use: Current Sobriety Substance use type: marijuana Housing: house Do you feel safe at home: Yes Do you feel safe in your relationship?: Yes Meds Allergies and Home Medications Allergies Allergy/AdvReac Type Severity Reaction Status Date / Time oxycodone (From Percocet) Allergy Severe Itching Verified 10/17/24 16:26 Home Medications ?Medication ?Instructions ?Recorded ?Confirmed ?Type candesartan 32 mg tablet 32 mg PO DAILY 09/14/24 10/17/24 History hydrochlorothiazide 25 mg tablet 25 mg PO DAILY 09/14/24 10/17/24 History albuterol sulfate 90 mcg/actuation 2 puff inhalation Q6H PRN 09/16/24 10/17/24 Rx aerosol inhaler shortness of breath or wheezing #8.5 grams apixaban 5 mg tablet (Eliquis) 5 mg PO BID #180 tabs 09/29/24 10/17/24 Rx blood sugar diagnostic (FreeStyle #100 ea 09/29/24 10/17/24 Rx Test strips) blood-glucose meter (FreeStyle #1 ea 09/29/24 10/17/24 Rx Arnold Lite kit) lancets 28 gauge (FreeStyle #100 ea 09/29/24 10/17/24 Rx Lancets) metformin 500 mg tablet,extended 500 mg PO DAILY #30 tabs 09/29/24 10/17/24 Rx release 24 hr metoprolol succinate 100 mg 100 mg PO DAILY #90 tabs 09/29/24 10/17/24 Rx tablet,extended release 24 hr pantoprazole 40 mg tablet,delayed 40 mg PO DAILY #30 tabs 10/02/24 10/17/24 Rx release (Protonix) Exam Narrative Exam Narrative: Fatigue but well-appearing gentleman laying in bed in no acute distress, 2 L nasal cannula in place, awake, alert, oriented x 4, heart regular rhythm, lungs distant coarse breath sounds without wheezing, abdomen soft, nontender, nondistended Results Labs 10/18/24 06:07 10/18/24 06:07 Labs: Laboratory Results - last 24 hr 10/17/24 10/17/24 10/17/24 16:25 16:29 17:25 WBC 18.04 H RBC 5.39 Hgb 14.0 Hct 45.0 MCV 84 MCH 26.0 L MCHC 31.1 L RDW 16.5 H Plt Count 316 MPV 9.2 Immature Gran % 0.6 Neutrophils % 91.5 Lymphocytes % 4.5 Monocytes % 2.9 Eosinophils % 0.2 Basophils % 0.3 Nucleated RBC % 0.0 Absolute Neutrophils 16.51 H Absolute Lymphocytes 0.81 L Absolute Monocytes 0.52 Absolute Eosinophils 0.04 Absolute Basophils 0.05 D-Dimer 521 H VBG pH 7.38 VBG pCO2 53 H VBG pO2 23 VBG HCO3 31 H VBG Total CO2 28 VBG O2 Saturation 37 VBG Base Excess 6 H VBG Lactate 2.5 H* Sodium 138 Potassium 3.9 Chloride 100 Carbon Dioxide 29.7 Anion Gap 8.3 BUN 14 Creatinine 1.1 Est GFR (CKD-EPI 2020) 75.90 Glucose 159 H Calcium 9.5 Total Bilirubin 0.6 AST 20 ALT 19 Alkaline Phosphatase 117 H Troponin I 9 11 NT-Pro-B Natriuret Pep 349 H Total Protein 8.9 H Albumin 3.3 L Lipase 55 COVID-19 Source Nasopharynx SARS-CoV-2 (PCR) Negative Influenza Type A (PCR) Negative Influenza Type B (PCR) Negative RSV (PCR) Negative MRSA (TEM-PCR) 10/17/24 10/17/24 10/17/24 19:00 19:28 22:40 WBC RBC Hgb Hct MCV MCH MCHC RDW Plt Count MPV Immature Gran % Neutrophils % Lymphocytes % Monocytes % Eosinophils % Basophils % Nucleated RBC % Absolute Neutrophils Absolute Lymphocytes Absolute Monocytes Absolute Eosinophils Absolute Basophils D-Dimer VBG pH VBG pCO2 VBG pO2 VBG HCO3 VBG Total CO2 VBG O2 Saturation VBG Base Excess VBG Lactate Sodium Potassium Chloride Carbon Dioxide Anion Gap BUN Creatinine Est GFR (CKD-EPI 2020) Glucose Calcium Total Bilirubin AST ALT Alkaline Phosphatase Troponin I 14 Cancelled NT-Pro-B Natriuret Pep Total Protein Albumin Lipase COVID-19 Source SARS-CoV-2 (PCR) Influenza Type A (PCR) Influenza Type B (PCR) RSV (PCR) MRSA (TEM-PCR) Negative Last Vital Signs Temp 99.8 F H 10/17/24 16:50 Pulse 80 10/17/24 21:20 Resp 20 10/17/24 21:20 BP 120/59 L 10/17/24 21:17 Pulse Ox 94 10/17/24 21:20 Time Spent Time spent with Patient: >75 minutes Time was spent: preparing to see the patient(eg.review tests), obtaining and/or reviewing separately otained hiistory, ordering medications,tests, procedures, referring, communicating with other health foster care therapist, indepentently interpreting results, counseling the patient and care coordination
[2024-10-17 22:51] LABS: Lactate 2.7 mmol/L (<or=2.0)
--- NOTE | 2024-10-17 23:30 | W.PC.ACHO ---
Registration Status: Primary Language: Preferred Language: ED Information & Data Chief Complaint SOB 10/17/24 16:48 Chief Complaint SOB 10/17/24 16:33 Triage Note SOB started this AM, 10/17/24 16:18 headache, chest pressure, DC from [facility] with [facility]NA 2wks ago Medical / Surgical History (Last Updated 10/17/24 @ 22:16 by Yakov De La Fuente MD) Severe sepsis Sepsis Most Recent Vital Signs Temperature 37.7 C H 10/17/24 16:50 Temperature Source Oral 10/17/24 16:50 Pulse 72 10/17/24 22:16 Pulse 73 10/17/24 22:16 Respiratory Rate 30 H 10/17/24 22:16 Respiratory Effort Short of Breath, Labored, Incrsd Work of Breathing 10/17/24 16:56 Respiratory Depth Shallow 10/17/24 16:56 Respiratory Pattern Tachypnea 10/17/24 16:56 Blood Pressure 120/48 L 10/17/24 22:16 Blood Pressure Mean 70 10/17/24 22:16 Pulse Oximetry 92 10/17/24 22:16 Oxygen Delivery Method Nasal Cannula 10/17/24 16:50 Oxygen Flow Rate 5 10/17/24 16:50 Pain Level 4 10/17/24 16:50 Comment headache 10/17/24 16:50 Allergies oxycodone (From Percocet) Allergy (Severe, Verified 10/17/24 16:26) Itching Active Medications Generic Name Dose Route Start Last Admin Trade Name Freq PRN Reason Stop Dose Admin Iohexol 100 ml 10/17/24 20:15 10/17/24 20:10 Omnipaque 350 Mg/Ml 100 Ml Btl IJ 11/16/24 23:59 100 ml DIRECTED JAMAL Administration Sodium Chloride 50 ml 10/17/24 20:15 10/17/24 20:09 Normal Saline - Diluent 50 Ml Vial IJ 50 ml .FOR DI USE JAMAL Administration IV IV Catheter Type [Left Saline Lock Antecubital] IV Catheter Type [Right Saline Lock Antecubital] IV Catheter Gauge [Left 18 Antecubital] IV Catheter Gauge [Right 18 Antecubital] Diet Orders Category Date Time Status Heart Healthy Eating [DIET] Nutrition 10/18/24 Breakfast Ordered Diagnostics 10/17/24 10/17/24 10/17/24 Range/Units 22:46 22:40 21:20 WBC (4.4-10.8) 10^3/uL RBC (4.36-5.78) 10^6/uL Hgb (13.5-17.5) g/dL Hct (40.0-50.0) % MCV (80-95) fL MCH (27.0-33.0) pg MCHC (32.0-36.0) % RDW (11.8-14.1) % Plt Count (130-400) 10^3/uL MPV (8.0-11.0) fL Immature Gran % % Neutrophils % % Lymphocytes % % Monocytes % % Eosinophils % % Basophils % % Nucleated RBC % (0.0-0.3) % Absolute Neutrophils (1.2-6.7) 10^3/uL Absolute Lymphocytes (1.2-3.4) 10^3/uL Absolute Monocytes (0.1-0.8) 10^3/uL Absolute Eosinophils (0.0-0.7) 10^3/uL Absolute Basophils (0.0-0.2) 10^3/uL D-Dimer (<500) ng/mlFEU VBG pH (7.31-7.41) VBG pCO2 (41-51) mmHg VBG pO2 mmHg VBG HCO3 (23-28) mmol/L VBG Total CO2 (24-29) mmol/L VBG O2 Saturation % VBG Base Excess (-2-3) mmol/L VBG Lactate 2.7 H* (<or=2.0) mmol/L Sodium (136-145) mmol/L Potassium (3.5-5.1) mmol/L Chloride (98-107) mmol/L Carbon Dioxide (21.0-32.0) mmol/L Anion Gap (3-11) mmol/L BUN (7-18) mg/dL Creatinine (0.70-1.30) mg/dL Est GFR (CKD-EPI 2020) (mL/min/1.73m2) Glucose (74-106) mg/dL Calcium (8.5-10.1) mg/dL Total Bilirubin (0.2-1.0) mg/dL AST (15-37) U/L ALT (16-63) U/L Alkaline Phosphatase (46-116) U/L Troponin I Cancelled 20 (<or=76) ng/L NT-Pro-B Natriuret Pep (<300) pg/mL Total Protein (6.4-8.2) g/dL Albumin (3.4-5.0) g/dL Lipase (<78) U/L COVID-19 Source SARS-CoV-2 (PCR) (Negative) Influenza Type A (PCR) (Negative) Influenza Type B (PCR) (Negative) RSV (PCR) (Negative) MRSA (TEM-PCR) (Negative) 10/17/24 10/17/24 10/17/24 Range/Units 19:28 19:00 17:25 WBC (4.4-10.8) 10^3/uL RBC (4.36-5.78) 10^6/uL Hgb (13.5-17.5) g/dL Hct (40.0-50.0) % MCV (80-95) fL MCH (27.0-33.0) pg MCHC (32.0-36.0) % RDW (11.8-14.1) % Plt Count (130-400) 10^3/uL MPV (8.0-11.0) fL Immature Gran % % Neutrophils % % Lymphocytes % % Monocytes % % Eosinophils % % Basophils % % Nucleated RBC % (0.0-0.3) % Absolute Neutrophils (1.2-6.7) 10^3/uL Absolute Lymphocytes (1.2-3.4) 10^3/uL Absolute Monocytes (0.1-0.8) 10^3/uL Absolute Eosinophils (0.0-0.7) 10^3/uL Absolute Basophils (0.0-0.2) 10^3/uL D-Dimer (<500) ng/mlFEU VBG pH (7.31-7.41) VBG pCO2 (41-51) mmHg VBG pO2 mmHg VBG HCO3 (23-28) mmol/L VBG Total CO2 (24-29) mmol/L VBG O2 Saturation % VBG Base Excess (-2-3) mmol/L VBG Lactate (<or=2.0) mmol/L Sodium (136-145) mmol/L Potassium (3.5-5.1) mmol/L Chloride (98-107) mmol/L Carbon Dioxide (21.0-32.0) mmol/L Anion Gap (3-11) mmol/L BUN (7-18) mg/dL Creatinine (0.70-1.30) mg/dL Est GFR (CKD-EPI 2020) (mL/min/1.73m2) Glucose (74-106) mg/dL Calcium (8.5-10.1) mg/dL Total Bilirubin (0.2-1.0) mg/dL AST (15-37) U/L ALT (16-63) U/L Alkaline Phosphatase (46-116) U/L Troponin I 14 11 (<or=76) ng/L NT-Pro-B Natriuret Pep (<300) pg/mL Total Protein (6.4-8.2) g/dL Albumin (3.4-5.0) g/dL Lipase (<78) U/L COVID-19 Source SARS-CoV-2 (PCR) (Negative) Influenza Type A (PCR) (Negative) Influenza Type B (PCR) (Negative) RSV (PCR) (Negative) MRSA (TEM-PCR) Negative (Negative) 10/17/24 10/17/24 Range/Units 16:29 16:25 WBC 18.04 H (4.4-10.8) 10^3/uL RBC 5.39 (4.36-5.78) 10^6/uL Hgb 14.0 (13.5-17.5) g/dL Hct 45.0 (40.0-50.0) % MCV 84 (80-95) fL MCH 26.0 L (27.0-33.0) pg MCHC 31.1 L (32.0-36.0) % RDW 16.5 H (11.8-14.1) % Plt Count 316 (130-400) 10^3/uL MPV 9.2 (8.0-11.0) fL Immature Gran % 0.6 % Neutrophils % 91.5 % Lymphocytes % 4.5 % Monocytes % 2.9 % Eosinophils % 0.2 % Basophils % 0.3 % Nucleated RBC % 0.0 (0.0-0.3) % Absolute Neutrophils 16.51 H (1.2-6.7) 10^3/uL Absolute Lymphocytes 0.81 L (1.2-3.4) 10^3/uL Absolute Monocytes 0.52 (0.1-0.8) 10^3/uL Absolute Eosinophils 0.04 (0.0-0.7) 10^3/uL Absolute Basophils 0.05 (0.0-0.2) 10^3/uL D-Dimer 521 H (<500) ng/mlFEU VBG pH 7.38 (7.31-7.41) VBG pCO2 53 H (41-51) mmHg VBG pO2 23 mmHg VBG HCO3 31 H (23-28) mmol/L VBG Total CO2 28 (24-29) mmol/L VBG O2 Saturation 37 % VBG Base Excess 6 H (-2-3) mmol/L VBG Lactate 2.5 H* (<or=2.0) mmol/L Sodium 138 (136-145) mmol/L Potassium 3.9 (3.5-5.1) mmol/L Chloride 100 (98-107) mmol/L Carbon Dioxide 29.7 (21.0-32.0) mmol/L Anion Gap 8.3 (3-11) mmol/L BUN 14 (7-18) mg/dL Creatinine 1.1 (0.70-1.30) mg/dL Est GFR (CKD-EPI 2020) 75.90 (mL/min/1.73m2) Glucose 159 H (74-106) mg/dL Calcium 9.5 (8.5-10.1) mg/dL Total Bilirubin 0.6 (0.2-1.0) mg/dL AST 20 (15-37) U/L ALT 19 (16-63) U/L Alkaline Phosphatase 117 H (46-116) U/L Troponin I 9 (<or=76) ng/L NT-Pro-B Natriuret Pep 349 H (<300) pg/mL Total Protein 8.9 H (6.4-8.2) g/dL Albumin 3.3 L (3.4-5.0) g/dL Lipase 55 (<78) U/L COVID-19 Source Nasopharynx SARS-CoV-2 (PCR) Negative (Negative) Influenza Type A (PCR) Negative (Negative) Influenza Type B (PCR) Negative (Negative) RSV (PCR) Negative (Negative) MRSA (TEM-PCR) (Negative) 10/17/24 17:00 Blood Culture - Pending Blood 10/17/24 16:35 Blood Culture - Pending Blood Intake and Output - 24 Hour Total 10/17/24 16:15 thru 10/17/24 20:05 Intake Total 970 Balance 970 Weight 144.5 kg Intake: IV 970 Falls Risk Assessment History of Falls No History 10/17/24 16:55 Contributing Factors Unstable 10/17/24 16:55 Ambulatory Aids Uses ambulatory device 10/17/24 16:55 Tubes/Lines None 10/17/24 16:55 Gait Evaluation W/no contributing factors 10/17/24 16:55 Cognition No cognitive impairment 10/17/24 16:55 Fall Total Score 28 10/17/24 16:55 Level of Risk Moderate Risk 10/17/24 16:55 Problems (Last Updated 10/17/24 @ 22:16 by Yakov De La Fuente MD) Lactic acid acidosis (Acute) Type 2 diabetes mellitus (Acute) Aortic aneurysm (Chronic) HTN (hypertension) (Chronic) Community acquired pneumonia (Acute) v v v v v v v v v Sending and/or Receiving Nurses: Please use comment section below to note any information pertinent to the patient hand-off not included above. Information / Comments: came to ED for SOB, recently treated w/ CAP, pt. pleasant and appropriate, on 2 LPM of O2. Report received from:initial call at [id number]. Nurse not available. Report received from Kaylan @ ED [id number]
[2024-10-18] VITALS (11 sets, daily range): BP systolic 120–164; BP diastolic 63–81; PULSE 54–77; RESP 3–20; TEMP 36.4–37; O2SAT 93–96
[2024-10-18] MEDS: CEFEPIME 2 GM in Normal Saline 100 ML IVPB ×4 (00:14→23:30)
[2024-10-18 01:26] LABS: Vancomycin, Random 14.5 ug/mL
[2024-10-18] MEDS: Lactated Ringers 1,000 ML 1000 ML IV (01:52)
[2024-10-18] MEDS: VANCOMYCIN/WATER (PEG) 2 GM/400 ML BAG IVPB (05:35)
[2024-10-18 06:27] LABS: HCT 35.5 % (40.0-50.0); HGB 11.5 g/dL (13.5-17.5); MCH 26.7 pg (27.0-33.0); MCHC 32.4 % (32.0-36.0); MCV 83 fL (80-95); MPV 9.5 fL (8.0-11.0); Platelet Count 237 10^3/uL (130-400); RDW 16.5 % (11.8-14.1); RDW-SD 49.6 fL; WBC 12.79 10^3/uL (4.4-10.8)
[2024-10-18 06:38] LABS: BUN 12 mg/dL (7-18); Calcium 8.7 mg/dL (8.5-10.1); Chloride 103 mmol/L (98-107); Glucose 161 mg/dL (74-106); Magnesium 1.6 mg/dL (1.8-2.4); Potassium 3.4 mmol/L (3.5-5.1); Sodium 143 mmol/L (136-145)
[2024-10-18] MEDS: Pantoprazole 40 MG TABCR PO (07:52)
[2024-10-18] MEDS: Normal Saline Flush 10 ML SYR IVP ×2 (08:32→19:42)
[2024-10-18] MEDS: Apixaban 5 MG TAB PO ×2 (08:33→19:42)
[2024-10-18] MEDS: predniSONE 20 MG TAB 40 MG PO (08:33)
[2024-10-18] MEDS: Metoprolol CR 100 MG TABCR PO (08:33)
[2024-10-18] MEDS: hydroCHLOROthiazide 25 MG TAB PO (08:33)
--- NOTE | 2024-10-18 09:07 | NUR.NOTE ---
patient AxOx4 this shift, denies pain, reports he feels breathing has improved from ED. Patient trialed on RA this AM and is at 93%, will monitor for hypoxia and pt educated on s/s to report to nursing, Independent in room, tolerating PO intake, recent BM and voiding. Fine crackles noted to bilater bases, otherwise benign assessment. Sputum sample collected and will confer with MD Casey about send off. Lactate redraw pending results, pt had lactate of 2.7 overnight and got 1L IVF. Nursing Note:
[2024-10-18 09:20] LABS: Lactate 1.7 mmol/L (<or=2.0)
--- NOTE | 2024-10-18 12:48 | W.PM.PROGNOT ---
Date of Service Date of service: 10/18/24 Time of Service: 12:48 Assessment and Plan Assessment and plan (1) Severe sepsis: Assessment and plan: -Met criteria for severe sepsis on admission with WBC 18, HR 114, CAP as presumed source of infection, initial lactic acid of 2.5 -started on vanc and cefepime, MRSA negative, stop vancomycin -was recently hospitalized twice at [facility] with CAP; First treated 09/16 as outpatient wiht levofloxacin, then admitted and treated with linezolid and zosyn, and discharged with augmentin and azithro, the second admission he was treated with levaquin and prednisone, though there was documented question if patient had been taking his prescribed antibiotics at discharge ( -CXR without acute findings, but CT again showed similar appearing groud glass opacities -repeat lactic normalized and WBC decreasing, suggesting a process that responds to antibiotics and steroids. (2) Community acquired pneumonia: Status: Acute Assessment and plan: -presumed source of infection as noted above -with apparent recurrent infection, sent sputum culture, get fungal stain, legionella ag -with ground glass consider aspergillis -improving with cefepime, could this be pseudomonal? 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 - Started p.o. prednisone 40 mg in the morning as well as scheduled nebulizers (4) Acute respiratory failure with hypoxia: Status: Resolved Assessment and plan: -presumed to be secondary to severe sepsis CAP and possible COPD exacerbation as noted above -Has resolved with antibiotics and steroids, on room air. (5) Persistent atrial fibrillation with RVR: Status: Resolved Assessment and plan: -diagnosed during previous hospitalization -continue eliquis and metoprolol, rate controlled (6) Aortic aneurysm: Status: Chronic Assessment and plan: -last measured at 4.5, stable. Follow as outpatient. (7) Type 2 diabetes mellitus: Status: Acute Assessment and plan: -continue home metformin, ISS prn (8) HTN (hypertension): Status: Chronic Assessment and plan: -continue home HCTZ, candasartan Subjective Subjective Patient reports: feels better, tolerating a regular diet and shortness of breath; denies nausea, vomiting or fever Interval history since last seen: Feeling a little better again. He isn't sure why he got sick again, but thinks it may have been triggered again but exposure to cleaning chemical sprays his daughter was using in another part of his house. This happened previously when he used bleach and immediately felt like he couldn't breath. He states he has changed his diet and brought down his blood sugars since he was told he has DM. Exam Narrative Exam Narrative: Fatigue but well-appearing gentleman sitting up on the side of the bed, off oxygen. Alert and oriented x 4, heart regular rhythm, lungs distant coarse breath sounds without wheezing, abdomen soft, nontender, nondistended, No LE edema. Objective Last Vital Signs Temp 36.7 C 10/18/24 11:24 Pulse 70 10/18/24 11:24 Resp 20 10/18/24 11:24 BP 143/76 H 10/18/24 11:24 Pulse Ox 94 10/18/24 11:24 Laboratory Results - last 24 hr 10/17/24 10/17/24 10/17/24 16:25 16:29 17:25 WBC 18.04 H RBC 5.39 Hgb 14.0 Hct 45.0 MCV 84 MCH 26.0 L MCHC 31.1 L RDW 16.5 H Plt Count 316 MPV 9.2 Immature Gran % 0.6 Neutrophils % 91.5 Lymphocytes % 4.5 Monocytes % 2.9 Eosinophils % 0.2 Basophils % 0.3 Nucleated RBC % 0.0 Absolute Neutrophils 16.51 H Absolute Lymphocytes 0.81 L Absolute Monocytes 0.52 Absolute Eosinophils 0.04 Absolute Basophils 0.05 D-Dimer 521 H VBG pH 7.38 VBG pCO2 53 H VBG pO2 23 VBG HCO3 31 H VBG Total CO2 28 VBG O2 Saturation 37 VBG Base Excess 6 H VBG Lactate 2.5 H* Sodium 138 Potassium 3.9 Chloride 100 Carbon Dioxide 29.7 Anion Gap 8.3 BUN 14 Creatinine 1.1 Est GFR (CKD-EPI 2020) 75.90 Glucose 159 H Calcium 9.5 Magnesium Total Bilirubin 0.6 AST 20 ALT 19 Alkaline Phosphatase 117 H Troponin I 9 11 NT-Pro-B Natriuret Pep 349 H Total Protein 8.9 H Albumin 3.3 L Lipase 55 Random Vancomycin COVID-19 Source Nasopharynx SARS-CoV-2 (PCR) Negative Influenza Type A (PCR) Negative Influenza Type B (PCR) Negative RSV (PCR) Negative MRSA (TEM-PCR) 10/17/24 10/17/24 10/17/24 19:00 19:28 21:20 WBC RBC Hgb Hct MCV MCH MCHC RDW Plt Count MPV Immature Gran % Neutrophils % Lymphocytes % Monocytes % Eosinophils % Basophils % Nucleated RBC % Absolute Neutrophils Absolute Lymphocytes Absolute Monocytes Absolute Eosinophils Absolute Basophils D-Dimer VBG pH VBG pCO2 VBG pO2 VBG HCO3 VBG Total CO2 VBG O2 Saturation VBG Base Excess VBG Lactate Sodium Potassium Chloride Carbon Dioxide Anion Gap BUN Creatinine Est GFR (CKD-EPI 2020) Glucose Calcium Magnesium Total Bilirubin AST ALT Alkaline Phosphatase Troponin I 14 20 NT-Pro-B Natriuret Pep Total Protein Albumin Lipase Random Vancomycin COVID-19 Source SARS-CoV-2 (PCR) Influenza Type A (PCR) Influenza Type B (PCR) RSV (PCR) MRSA (TEM-PCR) Negative 10/17/24 10/17/24 10/18/24 22:40 22:46 00:42 WBC RBC Hgb Hct MCV MCH MCHC RDW Plt Count MPV Immature Gran % Neutrophils % Lymphocytes % Monocytes % Eosinophils % Basophils % Nucleated RBC % Absolute Neutrophils Absolute Lymphocytes Absolute Monocytes Absolute Eosinophils Absolute Basophils D-Dimer VBG pH VBG pCO2 VBG pO2 VBG HCO3 VBG Total CO2 VBG O2 Saturation VBG Base Excess VBG Lactate 2.7 H* Sodium Potassium Chloride Carbon Dioxide Anion Gap BUN Creatinine Est GFR (CKD-EPI 2020) Glucose Calcium Magnesium Total Bilirubin AST ALT Alkaline Phosphatase Troponin I Cancelled NT-Pro-B Natriuret Pep Total Protein Albumin Lipase Random Vancomycin 14.5 COVID-19 Source SARS-CoV-2 (PCR) Influenza Type A (PCR) Influenza Type B (PCR) RSV (PCR) MRSA (TEM-PCR) 10/18/24 10/18/24 06:07 09:16 WBC 12.79 H RBC 4.30 L Hgb 11.5 L D Hct 35.5 L MCV 83 MCH 26.7 L MCHC 32.4 RDW 16.5 H Plt Count 237 MPV 9.5 Immature Gran % Neutrophils % Lymphocytes % Monocytes % Eosinophils % Basophils % Nucleated RBC % Absolute Neutrophils Absolute Lymphocytes Absolute Monocytes Absolute Eosinophils Absolute Basophils D-Dimer VBG pH VBG pCO2 VBG pO2 VBG HCO3 VBG Total CO2 VBG O2 Saturation VBG Base Excess VBG Lactate 1.7 Sodium 143 Potassium 3.4 L Chloride 103 Carbon Dioxide 31.0 Anion Gap 9.0 BUN 12 Creatinine 1.0 Est GFR (CKD-EPI 2020) 85.10 Glucose 161 H Calcium 8.7 Magnesium 1.6 L Total Bilirubin AST ALT Alkaline Phosphatase Troponin I NT-Pro-B Natriuret Pep Total Protein Albumin Lipase Random Vancomycin COVID-19 Source SARS-CoV-2 (PCR) Influenza Type A (PCR) Influenza Type B (PCR) RSV (PCR) MRSA (TEM-PCR) Time Spent with Patient Time Spent with Patient: >50 minutes Time was spent: preparing to see the patient(eg.review tests), obtaining and/or reviewing separately otained hiistory, ordering medications,tests, procedures, referring, communicating with other health hospice spiritual care coordinator, indepentently interpreting results, counseling the patient and care coordination
[2024-10-18] MEDS: Albuterol/Ipratropium 3 ML UPD VIAL UPD ×2 (14:01→19:50)
[2024-10-18] MEDS: Potassium Chloride 20 MEQ TABCR 40 MEQ PO (15:13)
[2024-10-18] MEDS: MAGNESIUM SULFATE 2 GM/50 ML BAG IV_INF (15:46)
[2024-10-18] MEDS: Azithromycin 250 MG TAB PO (15:50)
--- NOTE | 2024-10-18 16:47 | PDOC.CMIN ---
Date of service: 10/18/24 Time of Service: 14:00 Care Management Initial Assmt Initial Assessment Reason for Hospitalization: sepsis and pneumonia Functional Status/Living Situation Patient Presentation: William presented to the ER yesterday with c/o being unable to breath, and tacchypnea. This is his 4th admission in just over month. He was dx with sepsis and CAP. William was lying in the bed, Rosanne was visiting, when CM met with them today. They are know to CM from previous admissions. William looked well. He is off of his O2. William is really hoping that this is his last admission for a while. Town of Residence: [place] Resides with: Spouse (Lisa. Dumont and Rosanne's son, his girlfriend and their granddaughter also live in the house.) Natural Supports: family Employment Status: Disabled (he is the house ) Instrumental Activities of Daily Living (ADLs): Independent Activities/Hobbies/SocialSupport: keeps himself busy with housework and chores Medications Medication Management: No Issues/Barriers identified Advance Directives Advance Directives: Do you have an Advance Directive: Y 09/26/24 02:06 AD On File at [facility]: Y 09/26/24 02:06 Date Asked 09/26/24 10/01/24 08:30 AD Date Reviewed 10/17/24 10/17/24 16:17 COLST On File at [facility] COLST Date Scanned Code Status Resuscitation Status Full Code Portal Pt does not currently have a portal and education provided: Yes Insurance Coverage/Financial Issues Insurance: Medicare Part A & B Care Team Visit Care Team Role Provider Type Saul Casey MD [facility] STAFF PHYSICIAN [facility] Primary Care Provider NON-[facility] STAFF PHYSICIAN CAMMIE Unger Emergency Provider [employer] CRANE MANAGER Yakov De La Fuente MD Admit Provider [facility] STAFF PHYSICIAN Attending Provider Discharge Potential Discharge Needs: PCP F/U Appt Anticipated Barriers to Discharge: None Identified Patient/Family Education Needs: Review discharge instructions, discuss Ask Me Three Transportation: Private vehicle Plan: William will be discharged home when medically cleared. He will follow up with his PCP and plan of care and transport with family. CM will follow and continue to assess for discharge planning concerns. Social Determinants of Health Screening Social Determinants of health last assessed in clinic: 10/18/24 Will the Patient Participate in the Screening?: Yes Do you worry about having a steady place to live?: yes What is your living situation today?: I have housing today, but am worried about losing it Problems where you live: no known problems In the past 12 months, have you had to go without electric, gas, oil or water in your home?: no 1. Within the past 12 months, we worried whether our food would run out before we got money to buy more.: Don't know/refused 2. Within the past 12 months, the food we bought just didn't last and we didn't have money to get more.: Don't know/refused Has lack of transportation kept you from medical appointments or from doing things needed for daily living?: no Has anyone in your life made you feel unsafe or unsupported?: no How hard is it for you to pay for the very basics like food, housing, medical care, and heating? Would you say it is:: Not hard at all Do you want help finding or keeping work or a job?: I do not need or want help If for any reason you need help with day-to-day activities such as bathing, preparing meals, shopping, managing finances, etc., do you get the help you need?: I don?t need any help How often do you feel lonely or isolated from those around you?: Never Do you speak a language other than [place] at home?: No Does the patient want assistance with any of the above?: No Health Related Social Needs Health related social needs: housing instability, housed, with risk of homelessness (Z59.811) Health related social needs details: not applicable PFSH All Active Problems (Updated 10/18/24 @ 06:46 by Yakov De La Fuente MD) COPD exacerbation (Acute) Pneumonia (Acute) Lactic acid acidosis (Acute) Ground glass opacity present on imaging of lung (Acute) Hypertensive emergency (Acute) Type 2 diabetes mellitus (Acute) Palpitations (Acute) Aortic aneurysm (Chronic) Renal cyst (Acute) Hallucination (Acute) Respiratory failure (Acute) Atrial fibrillation with rapid ventricular response (Acute) HTN (hypertension) (Chronic) Community acquired pneumonia (Acute) Medical History (Updated 10/18/24 @ 06:46 by Yakov De La Fuente MD) Severe sepsis Sepsis Social History Smoking/Tobacco Use Status: Former Tobacco Use Smoking risk assessment performed?: Yes Alcohol Intake: former Drug use: Current Sobriety Substance use type: marijuana Housing: house Do you feel safe at home: Yes Do you feel safe in your relationship?: Yes Readmission Within the Past 30 Days Yes or No: Yes Date of First Admission Date of 1st Admission: 10/01/24 Date of this Admission Date of Admission: 10/17/24 This admission was: Through ED Office Visit Since 1st Admission Have you seen your PCP in the office since discharge?: Yes Date of PCP Appointment: 10/09 Had an appointment Been Scheduled?: Yes Speicalist Appointments Have you seen any other specialist since your 1st Admission?: No ED visits How many ED visits in the past 12 months: 4 Assessment for Readmission Summary of readmission circumstances, based upon interviews: admissions are recurring for the same problem despite appropriate treatment.
--- NOTE | 2024-10-18 17:28 | NUR.NOTE ---
patient continued off oxygen during remaineder of shift, did not c/o SOB or dyspnea. Sats stable on room air. Pending legionella and aspergillus of urine, pending sputum culture. Pt received PO K+ and IV Mg replacement today, independent in room, denies needs or pain. Call reza in reach, bed low/locked. Nursing Note:
[2024-10-19] VITALS (10 sets, daily range): BP systolic 123–156; BP diastolic 62–93; PULSE 64–96; RESP 5–24; TEMP 36.6–36.8; O2SAT 67–97
[2024-10-19] MEDS: Albuterol/Ipratropium 3 ML UPD VIAL UPD ×3 (02:00→12:52)
[2024-10-19 06:31] LABS: Anion Gap 10.5 mmol/L (3-11); BUN 13 mg/dL (7-18); CO2 28.5 mmol/L (21.0-32.0); CREATININE 1.1 mg/dL (0.70-1.30); Calcium 9.1 mg/dL (8.5-10.1); Chloride 100 mmol/L (98-107); Glucose 172 mg/dL (74-106); Sodium 139 mmol/L (136-145)
[2024-10-19] MEDS: Normal Saline Flush 10 ML SYR IVP (07:52)
[2024-10-19] MEDS: CEFEPIME 2 GM in Normal Saline 100 ML IVPB ×2 (07:52→15:26)
[2024-10-19] MEDS: predniSONE 20 MG TAB 40 MG PO (07:52)
[2024-10-19] MEDS: hydroCHLOROthiazide 25 MG TAB PO (07:52)
[2024-10-19] MEDS: Metoprolol CR 100 MG TABCR PO (07:52)
[2024-10-19] MEDS: Pantoprazole 40 MG TABCR PO (07:52)
[2024-10-19] MEDS: Apixaban 5 MG TAB PO (07:52)
[2024-10-19] MEDS: Potassium Chloride 20 MEQ TABCR 40 MEQ PO ×2 (08:13→13:35)
--- NOTE | 2024-10-19 11:24 | W.NUTRFU ---
Date of service: 10/19/24 Time of Service: 10:00 Nutrition Note NOTE: Had met with William during his last admission here and we set up outpatient nutrition appt for this morning downstairs, however William had been admitted over the weekend with COPD exacerbation. He's been eating well and has his metformin meds ordered for this admission - no insulin or capillary glucose ordered however. fasting glucose has remained <180. Expecting discharge today. We reviewed some more nutrition info and discussed some of his diet patterns. I answered some of his questions he had such as how many times and when are ideal for fingerstick glucose checks? - he currently checks fasting and was check prioor to dinner - now he is checking ~2 hours after dinner. He shared morning fasting glucose usually 117-140 and after supper usually 160-177. Shares a recent saturday it went >200 aftger dinner which was two burgers with buns and mexican fries. He related he didn't have many carbs earlier in the day so thought he would be fine. We discussed high glucose can occur at any meal regardless of how many he has had as it is has to do with the load he gets at any one time as well. We discussed the advantage of using CGM for 2-weeks and scheduling another outpatient appt to review data. I put a dexcom G7 on him and we scheduled a follow up at 11/03 to print report and work on diet recommendations more. I did give him a 2-day sample menu that would give him idea of where he needs to be for macros :recommended 2300kcals, 230g total carbs, 124-172g protein and 76g fat. We discussed added sugars and increasing fiber. will follow up in outpatient setting Recommend glucose fingersticks AC with sliding scale novolog for corrections above 150. Time Spent in Nutritional Counseling and Treatment: 30 minutes
--- NOTE | 2024-10-19 11:50 | PHA.REVIEW2 ---
Pharmacy Admission Review Admission Clinical Review Admission Pharmacy Review: COPD exacerbation (Acute) Lactic acid acidosis (Acute) Type 2 diabetes mellitus (Acute) Community acquired pneumonia (Acute) oxycodone (From Percocet) Allergy (Severe, Verified 10/17/24 16:26) Itching Resuscitation Status Full Code Height 6 ft Weight 142.882 kg Comments Comments/Follow Ups: Follow up on Symbicort if not discharged Pharmacy Admission Review Renal Dosing Renal Dosing: BUN 13 mg/dL (7-18) 10/19/24 05:50 Creatinine 1.1 mg/dL (0.70-1.30) 10/19/24 05:50 Medications needing adjustments: Reviewed (CrCl 102.14 mL/min) List of meds needing interventions: Current medications are okay Anticoagulation Anticoagulation: Hgb 11.5 g/dL (13.5-17.5) L D 10/18/24 06:07 Hct 35.5 % (40.0-50.0) L 10/18/24 06:07 Plt Count 237 10^3/uL (130-400) 10/18/24 06:07 Creatinine 1.1 mg/dL (0.70-1.30) 10/19/24 05:50 DVT Prophylaxis: Reviewed Medications: Apixaban (5mg BID) Relevant Labs Relevant Labs: Sodium 139 mmol/L (136-145) 10/19/24 05:50 Potassium 3.0 mmol/L (3.5-5.1) L 10/19/24 05:50 Chloride 100 mmol/L (98-107) 10/19/24 05:50 Magnesium 2.0 mg/dL (1.8-2.4) 10/19/24 05:50 Electrolytes, C-Reactive P, ESR: Reviewed (K 3 - order added for potassium PO TID) DM Control DM Control: Glucose 172 mg/dL (74-106) H 10/19/24 05:50 DM Control: Reviewed Insulin Dosing, Diabetic Medication: Has order for metformin Xr 500mg daily (timed to start today due to iohexol given on 10/17/24) Cardiac Review Cardiac Review: Troponin I 20 ng/L (<or=76) 10/17/24 21:20 NT-Pro-B Natriuret Pep 349 pg/mL (<300) H 10/17/24 16:25 Blood Pressure 145/93 1146 Blood Pressure 156/81 0726 Blood Pressure 123/62 0313 BP, HR, EF%: Reviewed (HR WNL) List meds needing interventions: Has orders for HCTZ 25mg daily, metoprolol XL 100mg daily and patients own candesartan 32mg daily QTc Review QTc: Reviewed (470 from 10/17/24) IV to PO Switch IV Medications: Reviewed (cefepime) Home Meds Home Med List reviewed: Reviewed Current Meds Current Medication Order Review: Reviewed Comments: Order put in this morning for Symbicort 2 puffs now x 1. Reach out to provider about a twice daily order if patient is not discharged today. Pharmacy Antibiotic Review Relevant Labs: WBC 12.79 10^3/uL (4.4-10.8) H 10/18/24 06:07 Temperature 36.6 C Temperature 36.7 C Temperature 36.8 C Microbiology 10/18/24 10:30 Sputum Culture - Preliminary Sputum Normal Syl Gram Stain - Final 10/17/24 17:00 Blood Culture - Preliminary Blood NO GROWTH 24 HOURS 10/17/24 16:35 Blood Culture - Preliminary Blood NO GROWTH 24 HOURS Pharmacy Antibiotic Activity: C/S review and Reviewed, no change Comments: Patient is on cefepime and PO azithromycin, day 2, for severe sepsis/CAP. Patient has had multiple admissions recently for pneumonia. Cultures showing no growth and no new WBC count for today. Comments Comments/Follow Ups: Follow up on Symbicort if not discharged
[2024-10-19] MEDS: Budesonide/Formoterol 160/4.5 6 GM 60 PUFF INH IH (12:50)
[2024-10-19 13:01] LABS: HCT 40.8 % (40.0-50.0); HGB 12.7 g/dL (13.5-17.5); MCHC 31.1 % (32.0-36.0); MCV 84 fL (80-95); MPV 9.2 fL (8.0-11.0); Platelet Count 266 10^3/uL (130-400); RBC 4.88 10^6/uL (4.36-5.78); RDW 16.1 % (11.8-14.1); RDW-SD 49.5 fL; WBC 10.98 10^3/uL (4.4-10.8)
--- NOTE | 2024-10-19 13:12 | CMDISCH_ITS ---
Date of service: 10/19/24 Time of Service: 13:12 LACE Index Scoring Tool Questions: Length of Stay (in days): 2 Was the patient admitted via the E.D.?: Yes Comorbidities: Diabetes w/o Complication and Chronic Pulmonary Disease E.D. Visits: 4 Answers: Total Score: 12 Risk of Readmission: High Risk Care Management Discharge Plan Reason for Hospitalization: sepsis, reccurrent pneumonia Discharge Plan: Julia will be discharged later today with no new services. He will be started on a new inhaler. Julia's has removed all bleach products from the home, and smoking by family members is no longer allowed in the home. Julia will f/u with his PCP and continue per his plan of care. He will transport home with his in a private vehicle. Patient/Family Education Needs: Review of discharge instructions, activity, limitations, and discuss ask me 3. SDOH Health Related Social Needs: Health related social needs housing instability, house d, with risk of homelessness (Z59.811) Health related social needs details not applicable Health related social needs details: not applicable
[2024-10-19] MEDS: Azithromycin 250 MG TAB PO (15:26)
--- NOTE | 2024-10-19 15:50 | W.PM.DS.N ---
Date of service: 10/19/24 Time of Service: 15:50 DS: Diagnosis Discharge Diagnosis (1) Severe sepsis: (2) Community acquired pneumonia: Status: Acute (3) COPD exacerbation: Status: Acute (4) Acute respiratory failure with hypoxia: Status: Resolved (5) Persistent atrial fibrillation with RVR: Status: Resolved (6) Aortic aneurysm: Status: Chronic (7) Type 2 diabetes mellitus: Status: Acute (8) HTN (hypertension): Status: Chronic Discharge Plan Disposition Patient Disposition: Home Condition: Good Discharge Details Reason For Visit: Severe Sepsis, CAP Admit Date/Time: 10/17/24 22:14 Admit Provider: Yakov De La Fuente Attending Provider: Yakov De La Fuente [facility] Hospital Course: 64yo male with PMH HTN, recently diagnosed a-fib on elqiuis, and 2 recent hospitalizations for severe sepsis CAP and acute hypoxic respiratory failure who presented to the ED with complaints of shortness of breath again with sepsis with WBC 18, HR 114, CAP as presumed source of infection, initial lactic acid of 2.5 as well as hypoxic respiratory failure. Flu/COVID/RSV were again negative. He improved quickly on prednisone and cefepime and vancomycin. Vancomycin was discontinued 10/18 after negative MRSA and doxycycline was started. He was off oxygen by 10/18 and his respiratory status remained stable. He did respond to duonebs and was given symbicort inhaler and a nebulizer for home use. He was discharged on 3 more days of azithromycin. Due to recurrence and bilateral ground glass on CT, additional testing was done when is pending as below. He reported the last 2 episodes were triggered after using bleach and then after his daughter used heavy cleaning spray (ammonia compound?). 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 We discussed other triggers such as pests, mold/humidity, pets, air fresheners, woodsmokes, candles, etc which he did not endorse. His daughter/ANUP smoke cigars outside which we did discuss. He was given a prolonged taper of prednisone. PCP/pulmonology may decide to discontinue or shorten this taper as appropriate. PFTs and pulmonology follow up was ordered. FOLLOW UP: PFTs ordered at [facility] Pulmonology clinic ordered at [facility] Follow new type 2 diabetes Confirm recommendations for steroid taper (given prolonged taper due to concern for hypersensitivity pnuemonitis playing a role. Pending labs at discharge: Final blood and sputum culture Fungal smear and culture of sputum Legionella, mycoplasma, and aspiragillus antigens Home Meds and New Rx's Prescriptions: New ipratropium-albuterol 0.5 mg-3 mg(2.5 mg base)/3 mL Solution For Nebulization 3 ml UPD Q6H Qty: 48 1RF azithromycin 250 mg Tablet 250 mg PO Q24H Qty: 3 0RF prednisone 10 mg tablet See Taper PO DIRECTED Qty: 61 0RF Taper: Prednisone 10mg taper 30 mg Daily for 12 Days and 0 Hour 20 mg Daily for 7 Days and 0 Hour 10 mg Daily for 7 Days and 0 Hour 5 mg Daily for 8 Days and 0 Hour Rx Instructions: see taper instructions budesonide-formoterol [Symbicort] 160-4.5 mcg/actuation HFA aerosol inhaler 2 puff inhalation BID Qty: 10.2 2RF Continued albuterol sulfate 90 mcg/actuation HFA aerosol inhaler 2 puff inhalation Q6H PRN (Reason: shortness of breath or wheezing) Qty: 8.5 0RF hydrochlorothiazide 25 mg tablet 25 mg PO DAILY candesartan 32 mg tablet 32 mg PO DAILY Eliquis 5 mg Tablet 5 mg PO BID Qty: 180 1RF metoprolol succinate 100 mg tablet extended release 24 hr 100 mg PO DAILY Qty: 90 0RF Patient Comments: didn't start, first dose given in ED on 10/01 (DME) blood-glucose meter [FreeStyle [place] Lite] Kit See Rx Instructions .Route Qty: 1 0RF Rx Instructions: As directed (DME) lancets [FreeStyle Lancets] 28 gauge misc See Rx Instructions .Route Qty: 100 0RF Rx Instructions: As directed (DME) FreeStyle Test Strip See Rx Instructions .Route Qty: 100 11RF Rx Instructions: As directed pantoprazole [Protonix] 40 mg tablet,delayed release (DR/EC) 40 mg PO DAILY Qty: 30 0RF Rx Instructions: Renewal to be discussed with PCP Changed metformin 500 mg tablet extended release 24 hr 1,000 mg PO DAILY Qty: 30 1RF Discharge Instructions Additional Instructions: This time we are giving you a long slow taper of prednisone. Your lung issue may be a hypersensitivity. Avoid respiratory irritants as we discussed. We ordered lung function tests and an consultation with pulmonology clinic. Increase the metformin to two a day. This will help control the blood sugar, especially while you are taking the prednisone Follow up with your primary care clinic in 1 week Referrals: Dr. Charles Yarbrough MD [Other] (Primary Care ) Oma Sandra PA [PHYSICIANS FILTERATION OPERATOR] - (64 yo M with COPD, 3 recurrent admissions with pneumonia/sepsis, CTs show ground glass. 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 and reported sensitivity to irritants triggering these episodes) Activity:: Activity as Tolerated Equipment/Supplies:: nebulizer Diet:: Carb Counting Discharge Orders Discharge Orders: Discharge Order (Routine); Ordered 10/19/24 Ordered By: Saul Casey Other Ambulatory Orders: PFT ([facility]anagan/[facility]/Volumes) (Routine) Timeframe: 2 Weeks Location: None Selected Ordered By: Saul Casey DS: Summary Time Spent with Patient providing and/or coordinating discharge services: Greater than 30 minutes Status at Discharge Functional status at discharge: independent ambulation Overall status at discharge: patient is back to baseline Mental Status: mental status grossly normal Speech and Movement: speech and movement normal Mood: congruent mood Affect: normal affect Quality:SDOH Health Related Social Needs: Health related social needs housing instability, housed, with risk of homelessness (Z59.811) Health related social needs details not applicable Health related social needs details: not applicable Exam Narrative Exam Narrative: Well-appearing gentleman sitting up on the side of the bed, off oxygen. Alert and oriented x 4, heart regular rhythm, lungs clear today, normal effort, no wheezing, abdomen soft, nontender, nondistended, No LE edema. Psych Mental Status: mental status grossly normal Speech and Movement: speech and movement normal Mood: congruent mood Affect: normal affect DS: Data Vitals/I&O Vitals and I&O: Vital Signs Temperature 36.6 C 10/19/24 11:46 Temperature Source Temporal Artery Scan 10/19/24 11:46 Pulse 70 10/19/24 12:55 Pulse Rhythm Regular 10/17/24 23:47 Pulse 73 10/17/24 22:16 Respiratory Rate 18 10/19/24 12:55 Respiratory Effort Normal 10/17/24 23:47 Respiratory Depth Shallow 10/17/24 16:56 Respiratory Pattern Tachypnea 10/17/24 16:56 Blood Pressure 145/93 H 10/19/24 11:46 Blood Pressure Mean 70 10/17/24 22:16 Pulse Oximetry 97 10/19/24 12:55 Oxygen Delivery Method Room Air 10/19/24 12:52 Oxygen Flow Rate 0 10/19/24 12:52 Pain Level 0 10/19/24 11:46 Comment RN notified 10/19/24 11:46 Intake & Output 10/18/24 10/19/24 10/19/24 23:59 11:59 23:59 Intake Total 1870 / 3710 200 / 200 Output Total 250 / 500 Balance 1620 / 3210 200 / 200 Intake: IV 150 / 1750 200 / 200 Oral 1720 / 1960 Output: Urine 250 / 500 Other: Urine Color Yellow Yellow Urine Appearance Clear Clear Urine Odor Normal Normal Comment Patient voids ind. in the toilet. Patient voids ind. in the toilet. Stool Size Moderate Stool Characteristics Formed Brown Data Completed and Pending Labs on day of discharge: Labs from last 24 hours 10/19/24 10/19/24 10/18/24 12:52 05:50 19:21 WBC 10.98 H RBC 4.88 Hgb 12.7 L Hct 40.8 MCV 84 MCH 26.0 L MCHC 31.1 L RDW 16.1 H Plt Count 266 MPV 9.2 Sodium 139 Potassium 3.0 L Chloride 100 Carbon Dioxide 28.5 Anion Gap 10.5 BUN 13 Creatinine 1.1 Est GFR (CKD-EPI 2020) 75.90 Glucose 172 H Calcium 9.1 Magnesium 2.0 Urine Legionella Ag Aspergillus Ag (EIA) Pending 10/18/24 16:25 WBC RBC Hgb Hct MCV MCH MCHC RDW Plt Count MPV Sodium Potassium Chloride Carbon Dioxide Anion Gap BUN Creatinine Est GFR (CKD-EPI 2020) Glucose Calcium Magnesium Urine Legionella Ag Pending Aspergillus Ag (EIA) Preliminary micro results at discharge 10/18/24 10:30 Sputum Culture - Preliminary Sputum Normal Syl 10/17/24 17:00 Blood Culture - Preliminary Blood NO GROWTH 24 HOURS 10/17/24 16:35 Blood Culture - Preliminary Blood NO GROWTH 24 HOURS PFSH All Active Problems (Updated 10/18/24 @ 06:46 by Yakov De La Fuente MD) COPD exacerbation (Acute) Pneumonia (Acute) Lactic acid acidosis (Acute) Ground glass opacity present on imaging of lung (Acute) Hypertensive emergency (Acute) Type 2 diabetes mellitus (Acute) Palpitations (Acute) Aortic aneurysm (Chronic) Renal cyst (Acute) Hallucination (Acute) Respiratory failure (Acute) Atrial fibrillation with rapid ventricular response (Acute) HTN (hypertension) (Chronic) Community acquired pneumonia (Acute) Medical History (Updated 10/18/24 @ 06:46 by Yakov De La Fuente MD) Sepsis Severe sepsis Social History Smoking/Tobacco Use Status: Former Tobacco Use Smoking risk assessment performed?: Yes Alcohol Intake: former Drug use: Current Sobriety Substance use type: marijuana Housing: house Do you feel safe at home: Yes Do you feel safe in your relationship?: Yes Time Spent with Patient Time Spent with Patient: 45-69 minutes Time was spent: preparing to see the patient(eg.review tests), obtaining and/or reviewing separately otained hiistory, ordering medications,tests, procedures, referring, communicating with other health healthcare advisory services manager, indepentently interpreting results, counseling the patient and care coordination
[2024-10-19] MEDS: metFORMIN C.R. 500 MG TABCR PO (16:04)
[2024-10-19 20:19] LABS: Legionella Ag Detection Urine Negative (Negative)
[2024-10-22 18:04] LABS: Mycoplasma Pneumoniae PCR Negative (Negative); Specimen source SPUTUM
[2024-11-16 07:18] LABS: Fungus Smear No Fungi Seen
== END 2024-10-19 17:16 | disposition home or self-care (01) | DRG 871 ==
LOC: ER 23:19 → MS 23:40
PROVIDERS: Admitting Provider Family Medicine; Emergency Provider Physician Assistant; Responsible Provider Family Medicine; Visit Provider Family Medicine
DX: A41.9 Sepsis, unspecified organism (principal); J18.9 Pneumonia, unspecified organism; J96.01 Acute respiratory failure with hypoxia; J44.0 Chronic obstructive pulmonary disease with (acute) lower respiratory infection; J44.1 Chronic obstructive pulmonary disease with (acute) exacerbation; E87.20 Acidosis, unspecified; I48.19 Other persistent atrial fibrillation; R65.20 Severe sepsis without septic shock; E11.9 Type 2 diabetes mellitus without complications; I10 Essential (primary) hypertension; I71.9 Aortic aneurysm of unspecified site, without rupture; Z87.891 Personal history of nicotine dependence; Z79.01 Long term (current) use of anticoagulants; Z79.84 Long term (current) use of oral hypoglycemic drugs
CPT/HCPCS: 00123; 36415; 71275; 80048; 80053; 82805; 83690; 85027; 87040; 87102; 87206; 87305; 87449; 87637; 87641; 93005; 94640; 94761; 96365; 96366; 96367; 96368; 99285; 71045; 80202; 83605; 83735; 83880; 84484; 85025; 85379; 87070; 87205; 87581; 93010; 94664; 94760; 99223; 99233; 99239; J0131; J0456; J0692; J3370; J3372; J3475; J3490; J7512; J7620

== ENCOUNTER 2024-11-03 00:35 | Outpatient (CLI) | payer MEDICARE, SELFPAY ==
--- NOTE | 2024-11-03 09:28 | W.NUTRFU ---
Date of service: 11/03/24 Time of Service: 09:00 Nutrition Note NOTE: William comes in with referral after discharge from [facility] about 2 weeks ago for COPD exacerbation and elevated glucose levels associated with diabetes. I gave him a Dexcom G7 CGM at discharge with environmental compliance officer. He states the environmental compliance officer stopped working 5 days into collecting data and said a new sensor was needed. He returned the environmental compliance officer. He has continued with capillary glucose screening at fasting (states has been 107-160 most mornings) and 2 hours after dinner or bedtime (reports about 140-185). Since discharge his metformin was increased to 1,000mg BID. He has been more active with walks on his property and states he reduced his added sugar significantly and has been eating more veggies. He doesn't weight himself at home but reports about 3 lost around his waist since last February when he was first feeling sick and ended up with PNA - first weight loss was from being sick but states he feels he has lost more due to the healthier changes he has made. He feels like he has a grasp on things and we reviewed plant protein sources today to help increase fiber and add to protein intake. Also talked about strength exercises to help with insulin sensitivity as part of his goal to be more active. He has my contact info should he have more questions or would like to get together again if glucose levels become too out or target. Time Spent in Nutritional Counseling and Treatment: 20 min
== END 2024-11-03 00:36 | disposition home or self-care (01) ==
LOC: DS 00:35
PROVIDERS: Visit Provider Dietitian, Registered
DX: E11.9 Type 2 diabetes mellitus without complications (principal)
CPT/HCPCS: 00123; 97802

== ENCOUNTER → 2024-11-17 09:07 | Outpatient (BNVA) | payer MEDICARE, SELFPAY | PROVIDERS: Visit Provider Physician Assistant Surgical | DX: R06.00 Dyspnea, unspecified (principal); I10 Essential (primary) hypertension; E11.9 Type 2 diabetes mellitus without complications | CPT/HCPCS: 99215 ==

== ENCOUNTER 2025-01-19 02:10 | Outpatient (CLI) | payer MEDICARE, SELFPAY ==
--- NOTE | 2025-01-19 07:45 | DI.CT_ITS ---
Exam(s) CT CHEST WO EXAM: CT CHEST WO CLINICAL HISTORY: f/u ground glass opacity on lung imaging,r91.8. TECHNIQUE: Imaging protocol: Axial computed tomography images were obtained and coronal and sagittal reformatted images were created and reviewed. Lung Computer Aided Detection (CAD) was utilized. COMPARISON: CT CT CHEST PE CTA from 10/17/2024 FINDINGS: Tracheobronchial tree: Patent where visualized. No bronchiectasis is present. Pulmonary parenchyma: No consolidation or dominant measurable mass. No suspicious pulmonary nodules. There has been complete resolution of the pulmonary infiltrates Mediastinum and Marcela: No dominant adenopathy or fluid collection. The esophagus is unremarkable. Thyroid gland: Unremarkable. Pleura: No effusion or pneumothorax. Heart: The heart is not dilated. Coronary artery calcification is present. No pericardial effusion. Aorta: Thoracic aorta non-dilated. Atherosclerotic calcification is present. Upper abdomen: Unremarkable. Lymph nodes: Within normal limits. Soft tissues: Unremarkable. Bones:Within normal limits for the patient's age. IMPRESSION: 1. Complete resolution of the pulmonary infiltrates. 2. No acute pulmonary process. RADIATION DOSE DELIVERED: 431.33mGy.cm Total DLP 431.33mGy.cm Total DLP DATA REPOSITORY: All CT scans at this facility are submitted to the National Radiology Data Registry (NRDR) Dose Index Registry (DIR) with the [employer] ([employer]). RADIATION OPTIMIZATION: All CT scans at this facility use at least one of these dose optimization techniques: automated exposure control; mA and/or kV adjustment per patient size (includes targeted exams where dose is matched to clinical indication); or iterative reconstruction.
== END 2025-01-19 02:30 ==
LOC: DI 02:11
PROVIDERS: Visit Provider Physician Assistant Surgical
DX: R91.8 Other nonspecific abnormal finding of lung field (principal)
CPT/HCPCS: 71250

== ENCOUNTER → 2025-02-02 11:03 | Outpatient (BNVA) | payer MEDICARE, SELFPAY | PROVIDERS: Visit Provider Physician Assistant Surgical | DX: R06.00 Dyspnea, unspecified (principal); Z87.891 Personal history of nicotine dependence | CPT/HCPCS: 99214 ==